=== PATIENT | male | born 2000 | race Hispanic/Latino ===

== ENCOUNTER 2022-12-12 20:17 | Emergency (ER) | payer SELFPAY ==
--- OUTSIDE RECORDS SUMMARY | 2022-12-12 20:22 | XMS REPORT | Continuity of Care Document ---
:2000 Author Organization [facility] t Address [address] [place] [address]. [address] [place] [address] Care Team Providers Name Role Phone ROLANDO MOSCOSO Primary Care Physician Unavailable JANINE RODRIGUEZ Attending Clinician Unavailable ROLANDO MOSCOSO Attending Clinician Unavailable Campbell Castro Attending Clinician Cherelle Morrow Attending Clinician Unavailable Janine Rodriguez MD Attending Clinician Doctor Unassigned, [place] Attending Clinician Unavailable MICHEL LAUGHLIN Attending Clinician Unavailable Amaris Gleason OT Attending Clinician Unavailable Kate Perea OT Attending Clinician Unavailable Michel Laughlin MD Attending Clinician Berto Costa MD Attending Clinician Lab, Jeremiah [facility] Attending Clinician Unavailable CAMPBELL CASTRO Attending Clinician Unavailable Corbin Mauro APN Attending Clinician Angeline Wilson LVN Attending Clinician Unavailable Only, Lcc Test Attending Clinician Unavailable Only, Pcp Test Attending Clinician Unavailable Nick Pereyra MD Attending Clinician Rodney Larsen MD Attending Clinician Angel Torres MD Attending Clinician JANINE RODRIGUEZ Admitting Clinician Unavailable Physician, No Primary or Family Admitting Clinician Janine Cunningham MD Admitting Clinician Payers Payer Name Policy Type Policy Number Effective Date Expiration Date Delroy sousa [facility] [id number] 2020 00:00:00 Problems Condition Condition Condition Status Onset Resolution Last Treating Co mments Source Name Details Category Date Date Treatment Clinician Date Morbid Morbid Disease Active Univers obesity obesity 4-23 [place] of [place] mass index 00 Me dical of of Branch 40.0-49.9 40.0-49.9 Attention Attention Disease Active Uni vers deficit deficit 1-06 [place] 00 Medical disorder disorder Branch (ADHD), (ADHD), predominan predominan tly tly inattentiv inattentiv e type e type Obesity Obesity Disease Active Univers 106 ity of 00:00: [place] 00 Medical Branch Essential Essential Disease Active Uni vers hypertensi hypertensi 06 it y of on on 00:00: [address] Allergies, Adverse Reactions, Alerts Allergy Allergy Status Severity Reaction(s) Onset Inactive Treating Comm ents Source Name Type Date Date Clinician No Known DA Active [facility] NO KNOWN Drug Active Univers ALLERGIE Class ity of S [facility] Social History Social Habit Start Date Stop Date Quantity Comments Source Exposure to Not sure [place] of SARS-CoV-2 [place] [facility] (event) [place] Alcohol intake 2021-01-15 2021-01-15 Current [facility] 00:00:00 00:00:00 non-drinker of [facility] alcohol (finding) [place] Tobacco use and 2013-11-14 2013-11-14 Smokeless tobacco Un iversity of exposure 00:00:00 00:00:00 non-user [facility] Sex Assigned At 2000 2000 Universit y of 00:00:00 00:00:00 [facility] Smoking Status Start Date Stop Date Source Never smoked tobacco [facility] Medications Ordered Filled Start Stop Current Ordering Indication Dosage Frequency Signature Comments Components Source Medication Medication Date Date Medication? Clinician (SIG) Name Name ibuprofen Yes [id number] 800mg Take 1 Univers 800 mg 7-07 tablet by ity of tablet 00:00: mouth [place] 00 every 6 Medical (six) Branch hours as needed for Pain (scale 1-3) for up to 30 doses. ibuprofen Yes [id number] 800mg Take 1 Univers 800 mg 7-07 tablet by ity of tablet 00:00: mouth [place] 00 every 6 Medical (six) Branch hours as needed for Pain (scale 1-3) for up to 30 doses. ibuprofen Yes [id number] 800mg Take 1 Univers 800 mg 7-07 tablet by ity of tablet 00:00: mouth [place] 00 every 6 Medical (six) Branch hours as needed for Pain (scale 1-3) for up to 30 doses. ibuprofen Yes [id number] 800mg Take 1 Univers 800 mg 7-07 tablet by ity of tablet 00:00: mouth [place] 00 every 6 Medical (six) Branch hours as needed for Pain (scale 1-3) for up to 30 doses. ibuprofen Yes [id number] 800mg Take 1 Univers 800 mg 7-07 tablet by ity of tablet 00:00: mouth [place] 00 every 6 Medical (six) Branch hours as needed for Pain (scale 1-3) for up to 30 doses. ibuprofen Yes [id number] 800mg Take 1 Univers 800 mg 7-07 tablet by ity of tablet 00:00: mouth [place] 00 every 6 Medical (six) Branch hours as needed for Pain (scale 1-3) for up to 30 doses. Vital Signs Vital Name Observation Time Observation Value Comments Source Body temperature 2021-07-07 20:13:00 36.06 Annika Univ [facility] Body height 2021-07-07 20:13:00 190.5 cm [facility] Body weight 2021-07-07 20:13:00 171.46 kg [facility] BMI 2021-07-07 20:13:00 47.25 kg/m2 [facility] Procedures This patient has no known procedures. Encounters Start End Encounter Admission Attending Care Care Encounter Source Date/Time Date/Time Type Type Clinicians Facility Department ID 2021-05-05 Emergency [facility] [id number] Univers 06:25:20 ity of [facility] 2021-05-05 Emergency [facility] [id number] Univers 01:08:17 ity of [facility] 2021-05-04 Emergency [facility] [id number] Univers 06:13:50 ity of [facility] 2021-05-04 Outpatient MICHAEL [facility] SOR [id number] Univers 04:21:39 JANINE ity [facility] 2021-05-03 Emergency [facility] [id number] Univers 20:12:00 ity [facility] 2020-09-21 Inpatient [facility] [id number] [facility] 11:31:00 [id number] [facility] 2022-04-08 2022-04-08 Outpatient Nicola MOSCOSO [facility] [id number] Univers 10:20:00 10:20:00 ROLANDO ity [facility] 2022-04-06 2022-04-06 Telephone Gloria [facility] 1.2.840.114 [id number] Univers 00:00:00 00:00:00 [facility] 350.1.13.10 it y of [place] 4.2.7.2.686 [facility] [phone] [facility] PRIMARY & 365 Branch SPECIALTY CARE 2022-01-22 2022-01-22 Telephone Gloria [facility] 1.2.840.114 [id number] Univers 00:00:00 00:00:00 [facility] 350.1.13.10 it y of [place] 4.2.7.2.686 [facility] [id number] [facility] PRIMARY & 365 Branch SPECIALTY CARE 2021-10-11 2021-10-11 Emergency ROSA Morrow [facility] [id number] [facility] 11:16:00 12:58:00 Cherelle [id number] [facility] 2021-10-11 2021-10-11 Emergency [facility] [id number] [facility] 11:16:00 12:58:00 Cherelle 97 [facility] 2021-08-13 2021-08-13 [facility] 1.2.840.114 [id number] Univers 00:00:00 00:00:00 Janine [facility] 350.1.13.10 it y of [place]2.7.2.686 [place] [id number] [facility] 198 [place] 2021-08-01 2021-08-01 Telephone [facility] 1.2.840.114 [id number] Univers 00:00:00 00:00:00 Janine PRIMARY 350.1.13.10 it [place] of [place] 4[place] [id number] [facility] 198 [place] 2021-07-31 2021-07-31 Telephone [facility] 1.2.840.114 [id number] Univers 00:00:00 00:00:00 Janine PRIMARY 350.1.13.10 it [place] of [place] 4.2.[place].2.[place] [id number] [facility] 198 [place] 2021-07-07 2021-07-07 Office [facility] 1.2.161.732 [id number] Univers 13:40:00 13:50:00 Visit Janine [facility] 350.1.13.10 it y of C[place] 4.2.7.2.[place] [id number] [address] 2021-07-07 2021-07-07 Outpatient R MICHAEL [facility] [id number] Univers 13:40:00 13:40:00 JANINE cerda [facility] 2021-07-07 2021-07-07 Orders Doctor JANINE 1.2.840.114 [id number] Univers 00:00:00 00:00:00 Only Unassigned, JACOB 350.1.13.10 ity of [place] [facility] 4.2.7.2.686 Jeremiah as [id number] [facility] 009 Branch 2021-05-21 2021-05-21 Outpatient R NAVNEET [facility] [id number] Univers 09:00:00 09:00:00 MICHEL cerda [facility] 2021-05-21 2021-05-21 [facility] 1.2.840.114 [id number] Univers 00:00:00 00:00:00 Management Amaris PRIMARY 350.1.13.10 it[place] of C[place] 4.2.7.2.[place] [id number] De dical 178 Branch 2021-05-13 2021-05-13 Case [facility] 1.2.840.114 [id number] Univers 00:00:00 00:00:00 Management Amaris PRIMARY 350.1.13.10 it[place] of C[place] 4.2.7.2.[place] [id number] De dical 178 Branch 2021-05-06 2021-05-06 Case Eliazar [facility] 1.2.840.114 [id number] Univers 00:00:00 00:00:00 Management Kate E PRIMARY 350.1.13.10 it[place] of [place] 4.2.7.2.[place] [id number] De dical 178 Branch 2021-04-30 2021-04-30 [facility] [id number] Univers 08:15:00 09:05:27 MICHEL ity of [facility] 2021-04-30 2021-04-30 Ancillary Kate Perea [facility] 1.2.84 0.114 [id number] Univers 08:10:26 09:05:27 Visit Michel Laughlin PRIMARY 350.1.13.10 it[place] of C[place] 4.2.[place].2.[place] [id number] De dical 178 [place] 2021-04-30 2021-04-30 Outpatient R [facility] [id number] Univers 08:15:00 08:15:00 ity of [facility] 2021-04-24 2021-04-24 Telephone [facility] 1.2.468.005 [id number] Univers 00:00:00 00:00:00 Amaris PRIMARY 350.1.13.10 it [place] of [place] 4.2.7.2.[place] [id number] De dical 178 Branch 2021-04-17 2021-04-17 Ancillary Amaris Gleason [facility] 1.2.840.114 [id number] Univers 13:36:55 14:18:27 Visit Michel Laughlin PRIMARY 350.1.13.10 it[place] of C[place] 4.2.7.2.[place] [id number] De dical 178 Branch 2021-04-10 2021-04-10 Ancillary Amaris Gleason [facility] 1.2.840.114 [id number] Univers 13:30:25 14:19:43 Visit Michel Laughlin PRIMARY 350.1.13.10 ity of CARE 4.2.7.2.[place] [id number] De dical 178 Branch 2021-04-02 2021-04-02 Ancillary Amaris Gleason [facility] 1.2.840.114 [id number] Univers 14:39:57 15:54:28 Visit Michel Laughlin PRIMARY 350.1.13.10 it[place] of C[place] 4.2.[place].2.[place] [id number] De dical 178 [place] 2021-04-02 2021-04-02 [facility] [id number] Univers 14:45:00 14:45:00 MICHEL [facility] [place] [facility] 2021-03-31 2021-03-31 [facility] 1.2.840.114 [id number] Univers 13:41:34 23:59:00 Encounter Janine PRIMARY 350.1.13.10 it[place] of C[place] 4.2.7.2.[place] [id number] De dical 807 [place] 2021-03-31 2021-03-31 [facility] 1.2.844.030 [id number] Univers 13:20:51 15:03:27 Visit Janine PRIMARY 350.1.13.10 it [place] of C[place] 4.2.7.2.[place] [id number] De dical 198 Branch 2021-03-31 2021-03-31 Outpatient [facility] [id number] Univers 14:00:00 14:00:00 JANINE antione [facility] 2021-03-31 2021-03-31 Outpatient R [facility] [id number] Univers 13:30:00 13:30:00 JANINE cerda [facility] 2021-03-31 2021-03-31 Outpatient R [facility] [id number] Univers 13:30:00 13:30:00 JANINE cerda [facility] 2021-02-24 2021-02-24 [facility] 1.2.840.114 [id number] Univers 13:31:30 23:59:00 Encounter Janine PRIMARY 350.1.13.10 it[place] of C[place] 4.2.7.2.[place] [id number] De dical 807 [place] 2021-02-24 2021-02-24 Office [facility] 1.2.673.683 [id number] Univers 13:17:21 14:07:52 Visit Janine [place] 350.1.13.10 it y of C[place] 4.2.7.2.[place] [id number] De dical 198 [place] 2021-02-24 2021-02-24 Outpatient R [facility], [facility] [id number] Univers 13:45:00 13:45:00 JANINE cerda [facility] 2021-02-24 2021-02-24 Outpatient R [facility] [id number] Univers 13:20:00 13:20:00 JANINE cerda [facility] 2021-01-24 2021-01-24 Orders Doctor JANINE 1.2.840.114 [id number] Univers 00:00:00 00:00:00 Only Unassigned, JACOB 350.1.13.10 ity of [place] [facility] 4.2.7.2.686 Jeremiah as [id number] [address] 2021-01-17 2021-01-17 Telephone [facility] 1.2.840.114 [id number] Univers 00:00:00 00:00:00 Janine PRIMARY 350.1.13.10 it y of [place] 4.2.[place].2.[place] [id number] De dical 198 [place] 2021-01-15 2021-01-15 [facility] 1.2.840.114 [id number] Univers 14:40:00 23:59:00 Encounter Janine SPECIALTY 350.1.13.10 ity of C[place] 4.2.7.2.686 [place] C[place] AT [id number] De keerthi MAURO 809 [facility] 2021-01-15 2021-01-15 Office [facility] 1.2.530.502 [id number] Univers 14:30:04 16:08:36 Visit Janine SPECIALTY 350.1.13.10 it[place] of [place] 4.2.7.2.[place] AT [id number] De keerthi MAURO 198 [facility] 2021-01-15 2021-01-15 [facility] [id number] Univers 14:40:00 14:40:00 JANINE [facility] [place] [facility] 2021-01-07 2021-01-08 Emergency Julissa, TRAU[place] 1.2.158.405 [id number] Univers 20:07:00 03:12:00 [facility] 350.1.13.10 ity of 4.2.7.2.686 [facility] [id number] [facility] 014 Branch 2020-12-30 2020-12-30 Ancillary Amaris Gleason [facility] 1.2.840.114 [id number] Univers 13:43:01 17:00:51 Visit Michel Laughlin 350.1.13.10 ity of CARE 4.2.7.2.686 [facility] [id number] De keerthi 178 Branch 2020-12-30 2020-12-30 Outpatient R NAVNEET [facility] [id number] Univers 13:45:00 13:45:00 MICHEL cerda [facility] 2020-12-30 2020-12-30 Telephone Gloria [facility] 1.2.840.114 [id number] Univers 00:00:00 00:00:00 [facility] 350.1.13.10 [place] of [place] 4.2.7.2.686 [place] [facility] [id number] [facility] Primary & 365 Branch Specialty Care 2020-12-27 2020-12-27 Game Moderator Lab, [facility] 1.2.840.11 [id number] Univers 14:04:30 14:19:30 Visit Gloria [facility] 350.1.13.10 ity of [place] 4.2.7.2.686 [facility] [id number] [facility] Primary & 357 Branch Specialty Care 2020-12-27 2020-12-27 Office [facility] 1.2.840.114 [id number] Univers 13:24:42 13:54:42 Visit [facility] 350.1.13.10 it y of [place] 4.2.7.2.686 [facility] [id number] [facility] Primary & 365 Branch Specialty Care 2020-12-27 2020-12-27 Outpatient R GLORIA [facility] [id number] Univers 13:30:00 13:30:00 [facility] ity [facility] 2020-12-27 2020-12-27 Telephone [facility] 1.2.840.114 [id number] Univers 00:00:00 00:00:00 Jannie SPECIALTY 350.1.13.10 it[place] C[place] 4.2.[place].2.[place] AT [id number] De keerthi MAURO [address] [place] [address] 2020-12-20 2020-12-20 Telephone [facility] 1.2.840.114 [id number] Univers 00:00:00 00:00:00 Janine SPECIALTY 350.1.13.10 it[place] of C[place] 4.2.7.2.[place] AT [id number] De keerthi MAURO [address] [place] [address] 2020-12-19 2020-12-19 Telephone [facility] 1.2.840.114 [id number] Univers 00:00:00 00:00:00 Janine SPECIALTY 350.1.13.10 ity of C[place] 4.2.7.2.686 [place] AT [id number] De keerthi MAURO [address] [place] [address] 2020-12-18 2020-12-18 Office [facility] 1.2.217.671 [id number] Univers 15:55:56 17:12:09 Visit Janine SPECIALTY 350.1.13.10 ity of C[place] 4.2.7.2.[place] AT [id number] De keerthi MAURO [address] [place] [address] 2020-12-18 2020-12-18 Outpatient R [facility], [facility] [id number] Univers 16:10:00 16:10:00 JANINE cerda [facility] 2020-12-16 2020-12-16 Emergency Mauro, [place] 1.2.537.456 [id number] Univers 15:50:00 19:43:00 Corbin [facility] 350.1.13.10 ity of [place]2.7.2.686 [place] [id number] [address] 2020-12-11 2020-12-11 Telephone [facility] 1.2.840.114 [id number] Univers 00:00:00 00:00:00 Janine SPECIALTY 350.1.13.10 ity of C[place] 4.2.7.2.686 [place] C[place] AT [id number] De keerthi CRESTONAntione [address] [place] [address] 2020-12-04 2020-12-04 Outpatient R [facility], [facility] [id number] Univers 16:20:00 16:20:00 JANINE [facility] [place] [facility] 2020-11-28 2020-11-28 [facility] 1.2.840.114 [id number] Univers 00:00:00 00:00:00 Janine PRIMARY 350.1.13.10 it y of C[place] 4.2.7.2.686 [place] [facility] [id number] [address] 2020-11-27 2020-11-27 Patient [facility] 1.2.537.397 [id number] Univers 00:00:00 00:00:00 Secure Msg Angeline Borges SPECIALTY 350.1.13.10 it[place] of [place] 4.2.7.2.[place] C[place] AT [id number] De keerthi MAURO [address] [place] [address] 2020-11-05 2020-11-05 Telephone [facility] 1.2.840.114 [id number] Univers 00:00:00 00:00:00 Janine PRIMARY 350.1.13.10 it y of C[place] 4.2.7.2.686 [place] [id number] De dical 198 [place] 2020-11-04 2020-11-04 [facility] 1.2.840.114 [id number] [facility] 13:00:14 23:59:00 Encounter Janine PRIMARY 350.1.13.10 it[place] of [place] 4.2.[place].2.[place] [id number] [facility] 807 [place] 2020-11-04 2020-11-04 [facility] 1.2.573.027 [id number] [facility] 12:42:49 14:23:19 Visit Janine PRIMARY 350.1.13.10 it [place] of C[place] 4.2.7.2.[place] [id number] [facility] 198 [place] 2020-11-04 2020-11-04 Outpatient R [facility] [id number] Univers 13:15:00 13:15:00 JANINE [facility] [place] [facility] 2020-11-04 2020-11-04 Outpatient R [facility] [id number] Univers 13:00:00 13:00:00 JANINE [facility] [place] [facility] 2020-11-04 2020-11-04 [facility] 1.2.840.114 [id number] Univers 00:00:00 00:00:00 Janine PRIMARY 350.1.13.10 it [place] of C[place] 4.2.7.2.[place] [id number] [facility] 198 [place] 2020-10-29 2020-10-29 [facility] 1.2.840.114 [id number] Univers 00:00:00 00:00:00 Janine PRIMARY 350.1.13.10 it y of C[place] 4.2.7.2.[place] [id number] [facility] 198 [place] 2020-10-25 2020-10-25 [facility] 1.2.840.114 [id number] Univers 07:22:00 16:08:00 Encounter [facility] 350.1.13.10 ity of [place] 4.2.7.2.686 [place] [facility] [id number] [facility] 049 [facility] 2020-10-25 2020-10-25 Surgery Michael, [facility] 1.2.503.360 [id number] Univers 08:56:00 11:55:00 Janine SPECIALTY 350.1.13.10 it[place] of C[place] 4.2.7.2.[place] CENTER AT [id number] De lucitavictoria MAURO 020 [facility] 2020-10-25 2020-10-25 Outpatient R FAILCECILIO, [facility] SOR [id number] Univers 08:58:00 08:58:00 JANINE cerda [facility] 2020-10-25 2020-10-25 Orders Doctor JANINE 1.2.840.114 [id number] Univers 00:00:00 00:00:00 Only Unassigned, JACOB 350.1.13.10 ity of [place] [facility] 4.2.7.2.686 Jeremiah as [id number] [facility] 009 [place] 2020-10-24 2020-10-24 Laboratory Only, [facility] Test [facility] 1.2.840. 114 [id number] Univers 15:04:09 15:19:09 Only Janine Rodriguez 350.1.13.10 ity of CARE 4.2.7.2.[place] CENTER AT [id number] De lucitavictoria MAURO 353 [facility] 2020-10-24 2020-10-24 Outpatient R MICHAEL, [facility] [id number] Univers 14:45:00 14:45:00 JANINE cerda [facility] 2020-10-21 2020-10-21 Letter Michael, [facility] 1.2.460.156 [id number] Univers 00:00:00 00:00:00 (Out) Janine [place] 350.1.13.10 it y of C[place] 4.2.7.2.686 [place] LEWISBERRY [id number] [facility] 198 [place] 2020-10-21 2020-10-21 Patient Michael [facility] 1.2.506.098 [id number] Univers 00:00:00 00:00:00 Secure Msg Janine PRIMARY 350.1.13.10 ity of C[place] 4.2.7.2.[place] [id number] De keerthi 198 [place] 2020-10-11 2020-10-11 Telephone Failjakice, [facility] 1.2.840.114 [id number] Univers 00:00:00 00:00:00 Janine SPECIALTY 350.1.13.10 it[place] of [place] 4.2.7.2.[place] C[place] AT [id number] De keerthi Donnelly [facility] 2020-10-07 2020-10-07 Outpatient R FAILLACE, [facility] [id number] Univers 10:50:00 10:50:00 JANINE antione [facility] 2020-10-07 2020-10-07 Outpatient R FAILLACE, [facility] [id number] Univers 10:50:00 10:50:00 JANINE [facility] [place] [facility] 2020-10-04 2020-10-04 Telephone [facility], [facility] 1.2.840.114 [id number] Univers 00:00:00 00:00:00 Janine SPECIALTY 350.1.13.10 it[place] of C[place] 4.2.7.2.[place] C[place] AT [phone] De keerthi Donnelly [facility] 2020-09-23 2020-09-23 Laboratory Only, Pcp Test [facility] 1.2.840. 114 [id number] Univers 13:50:07 14:05:07 Only Michael, Janine PRIMARY 350.1.13.10 ity of C[place] 4.2.7.2.[place] [id number] De keerthi [address] [place] [address] 2020-09-23 2020-09-23 Outpatient R FAILLACE, [facility] [id number] Univers 14:00:00 14:00:00 JANINE [facility] [place] [facility] 2020-09-17 2020-09-17 Emergency TRAU[place] 1.2.651.055 [id number] Univers 07:11:00 07:30:00 CENTER 350.1.13.10 [place].2.[place] [id number] [address] 2020-09-17 2020-09-17 Emergency TRAU[place] 1.2.930.340 [id number] 07:11:00 07:30:00 CENTER 350.1.13.10 4.2.7.2.686 [id number] 2020-08-09 2020-08-09 [facility] 1.2.840.114 [id number] Univers 00:00:00 00:00:00 Janine PRIMARY 350.1.13.10 it [place] of C[place] 4.2.7.2.[place] [id number] De dical [address] [place] 2020-08-09 2020-08-09 [facility] 1.2.840.114 [id number] 00:00:00 00:00:00 Janine PRIMARY 350.1.13.10 CARE 4.2.7.2.686 PAVILLION [id number] 198 2020-08-05 2020-08-05 Outpatient [facility] [id number] Univers 13:00:11 23:59:00 [facility] 2020-08-05 2020-08-05 [facility] 1.2.840.114 [id number] Univers 13:00:00 23:59:00 Encounter Janine PRIMARY 350.1.13.10 it[place] of C[place].2.7.2.[place] [id number] De dical 807 [place] 2020-08-05 2020-08-05 [facility] 1.2.840.114 [id number] 13:00:00 23:59:00 Encounter Janine PRIMARY 350.1.13.10 CARE 4.2.7.2.686 PAVILLION [id number] 807 2020-08-05 2020-08-05 Outpatient Nicola LAUGHLIN [facility] [id number] Univers 15:00:00 15:00:00 MICHEL [facility] 2020-08-05 2020-08-05 Outpatient [facility] [id number] Univers 13:20:00 13:20:00 JANINE [facility] 2020-08-05 2020-08-05 Office [facility] 1.2.997.597 [id number] Univers 12:56:00 13:06:00 Visit Janine PRIMARY 350.1.13.10 it y of C[place] 4.2.7.2.[place] [id number] De dical [address] [place] 2020-08-05 2020-08-05 Office [facility] 1.2.801.187 [id number] 12:56:00 13:06:00 Visit Janine PRIMARY 350.1.13.10 CARE 4.2.7.2.686 PAVILLION [phone] [facility] 2020-08-05 2020-08-05 Outpatient R [facility] [id number] Univers 00:00:00 00:00:00 JANINE [facility] [place] [facility] 2020-08-04 2020-08-04 Abstract Hafsa [facility] 1.2.840.114 [id number] Univers 00:00:00 00:00:00 Nick PRIMARY 350.1.13.10 [place] [id number] De dical [address] [place] 2020-08-01 2020-08-01 Emergency Vasut, TRAUMA 1.2.344.214 [id number] Univers 07:52:00 13:28:00 [facility] 350.1.13.10 [place] [id number] [facility] [address] [place] 2020-07-24 2020-07-24 Ancillary Kate Perea [facility] 1.2.84 0.114 [id number] Univers 14:39:10 15:24:10 Visit Michel Laughlin A PRIMARY 350.1.13.10 [place] [phone] De dical [address] [place] 2020-07-24 2020-07-24 Outpatient R [facility] [id number] Univers 15:00:00 15:00:00 ity [facility] 2020-07-08 2020-07-08 Ancillary Kate Perea [facility] 1.2.84 0.114 [id number] Univers 12:53:01 13:38:01 Visit Michel Laughlin PRIMARY 350.1.13.10 [place] [id number] De dical [address] [place] 2020-07-08 2020-07-08 [facility] [id number] Univers 13:00:00 13:00:00 MICHEL ity [facility] 2020-06-26 2020-06-26 Case Eliazar [facility] 1.2.840.114 [id number] Univers 00:00:00 00:00:00 Management Kate E PRIMARY 350.1.13.10 [place] [id number] [facility] [address] [place] 2020-06-19 2020-06-19 Ancillary Kate Perea [facility] 1.2.84 0.114 [id number] Univers 13:54:01 14:39:01 Visit Michel Laughlin PRIMARY 350.1.13.10 [place] [id number] De dicwi [address] [place] 2020-06-12 2020-06-12 Outpatient R [facility] [id number] Univers 13:45:00 13:45:00 ity [facility] 2020-06-11 2020-06-11 Ancillary Amaris Gleason [facility] 1.2.840.114 [id number] Univers 14:27:57 15:12:57 Visit Michel Laughlin PRIMARY 350.1.13.10 [place] [id number] De dical [address] [place] 2020-06-06 2020-06-06 Ancillary Victorino Amaris [facility] 1.2.840.114 [id number] Univers 15:29:18 16:14:18 Visit Michel Laughlin PRIMARY 350.1.13.10 [place] [phone] De dical [address] [place] 2020-05-29 2020-05-29 Ancillary Amaris Gleason [facility] 1.2.840.114 [id number] Univers 13:59:22 14:44:22 Visit Michel Laughlin PRIMARY 350.1.13.10 [place] [phone] De dical [address] [place] 2020-05-29 2020-05-29 Outpatient R [facility] [id number] Univers 14:00:00 14:00:00 ity [facility] 2020-05-13 2020-05-13 [facility] 1.2.840.114 [id number] Univers 09:02:44 23:59:00 Encounter Janine PRIMARY 350.1.13.10 [place] [id number] De dical [address] [place] 2020-05-13 2020-05-13 Ancillary Kate Perea Alfred [facility] 1.2.84 0.114 [id number] Univers 11:07:13 11:52:13 Visit Michel Laughlin PRIMARY 350.1.13.10 [place] [id number] De dicwi [address] [place] 2020-05-13 2020-05-13 [facility] [id number] Univers 11:30:00 11:30:00 MICHEL [facility] [place] [facility] 2020-05-13 2020-05-13 Outpatient R [facility] [id number] Univers 10:00:00 10:00:00 JANINE [facility] 2020-05-13 2020-05-13 Office [facility] 1.2.079.406 [id number] Univers 08:59:24 09:19:24 Visit Janine PRIMARY 350.1.13.10 [place] [id number] [facility] [address] [place] 2020-05-13 2020-05-13 Outpatient R [facility] [id number] Univers 00:00:00 00:00:00 JANINE [facility] 2020-05-12 2020-05-12 [facility] 1.2.372.811 [id number] Univers 00:00:00 00:00:00 Christopher PRIMARY 350.1.13.10 ity of CARE 4.2.7.2.686 [place] [facility] [id number] De dical [address] [place] 2020-05-07 2020-05-07 Orders Doctor JANINE 1.2.840.114 [id number] Univers 00:00:00 00:00:00 Only Unassigned, JACOB 350.1.13.10 ity of [place] [facility] 4.2.7.2.686 Jeremiah as [phone] [facility] bozena [address] Results Test Description Test Time Test Comments Results Result [facility] e Comments - XR FOOT 3 + V LT 2021-10-11 12:05:00 [facility] 2000 Sex: M FAX: Cherelle Morrow MD [phone] [place]: St: REG Name: ANABELLVALENCIA [facility] : 2000 Age/S: 21/M [address] [facility] Unit #: [id number] Loc: [place], [place]: [place] [address] Acct: [id number] Dis Date: Status: REG ER PHONE #: [phone] Exam Date: 10/11/2021 1202 FAX #: [phone] Reason: pain, catfish stinger medial forefoot EXAMS: CPT CODE: [id number] XR FOOT 3 + [place] [address] B2 Exam: - XR FOOT 3 + V LT DATE:10/11/2021 11:32 AM INDICATION:pain, catfish stinger medial forefoot COMPARISON:None DISCUSSION: No acute fracture or dislocation. No significant soft tissue abnormality. No radiopaque foreign body. IMPRESSION: No acute osseous abnormality. at 1205 Reported and signed by: ERICH MAXWELL MD CC: Cherelle Morrow MD Technologist: URVASHI SPENCER; Linnette Drummond [facility] Date/Time/By: 10/11/2021 (0586) : By: Kristina PAGE 1 Signed Report FAX: Cherelle Morrow MD [phone] [place]: St: REG Name: VALENCIA HUNG [facility] : 2000 Age/S: 21/M [address] [facility] Unit #: [id number] Loc: [place], [place]: [place] [address] Acct: [id number] Dis Date: Status: REG ER PHONE #: [phone] Exam Date: 10/11/2021 1202 FAX #: [phone] Reason: pain, catfish stinger medial forefoot EXAMS: CPT CODE: [id number] XR FOOT 3 + V LT 73081 (Continued) Orig Print D/T: S: 10/11/2021 (2153) PAGE 2 Signed Report - ABDOMEN LTD 2020-09-21 15:45:00 [facility] : 2000 Sex: M FAX: Jamar Beck DO [phone] [place]: St: REG FAX: Waylon Melo [phone] Name: VALENCIA HUNG [facility] : 2000 Age/S: 20/M [address] [facility] Unit #: [id number] Loc: [address] Phys: Waylon Holley SQL SSRS SSIS DEVELOPER [address] Acct: [id number] Dis Date: Status: REG ER PHONE #: [phone] Exam Date: 09/21/2020 1602 FAX #: [phone] Reason: RUQ pain EXAMS: CPT CODE: [id number] ABDOMEN [facility] 33665 C3 TIME OF STUDY: 09/21/2020 1:49 PM REASON FOR EXAM: RUQ pain COMPARISON: CT on the same date TECHNIQUE: Liver/gallbladder ultrasound. B-mode grayscale, color Doppler, and spectral Doppler images are obtained. Exam is significantly limited due to patient body habitus. FINDINGS: The liver is enlarged, measuring 19.6 cm in length. The liver echogenicity is diffusely increased. This limits evaluation for focal lesions. No intrahepatic biliary dilatation is present. The common bile duct is not dilated and measures 5 mm. Doppler images demonstrate a patent portal vein with hepatopetal flow. There is some layering echogenic sludge present. There is no evidence of cholelithiasis or gallbladder wall thickening or pericholecystic fluid. The pancreas is not well visualized due to overlying bowel gas. The right kidney measures approximately 10.9 cm in length and has a normal appearance. IMPRESSION: 1. Layering sludge within the gallbladder. No cholelithiasis or acute cholecystitis. 2. Hepatomegaly with hepatic steatosis. at 1545 Reported and signed by: Enrike Honeycutt M.D. CC: Jamar Beck DO; Waylon Holley NP Technologist: ARMANDO YEE Trnprrd Date/Time/By: 09/21/2020 (6036) : By: [email or web address] PAGE 1 Signed Report FAX: Jamar Beck DO [phone] [place]: St: REG FAX: Waylon Melo [phone] Name: VALENCIA HUNG [facility] : 2000 Age/S: 20/M [address] [facility] Unit #: [id number] Loc: [address] Phys: Waylon Holley SQL SSRS SSIS DEVELOPER [address] Acct: [id number] Dis Date: Status: REG ER PHONE #: [phone] Exam Date: 09/21/2020 1602 FAX #: [phone] Reason: RUQ pain EXAMS: CPT CODE: [id number] US ABDOMEN LTD 41161 (Continued) Orig Print D/T: S: 09/21/2020 (5829) PAGE 2 Signed Report COMPREHENSIVE METABOLIC PANEL 2020-09-21 13:20:00 Test Item Value Reference Range Interpretation Comme nts SODIUM (test code = NA) 141 mmol/l 134.0-147.0 N POTASSIUM (test code = K) 4.1 mmol/L 3.6-5.2 N CHLORIDE (test code = CL) 105 mmol/l 98.0-107.0 N CARBON DIOXIDE (test code = CO2) 26.8 mmol/l 21.0-33.0 N ANION GAP (test code = GAP) 13.3 0-20 N GLUCOSE (test code = GLU) 101 mg/dl 70.0-110.0 N BLOOD UREA NITROGEN (test code = BUN) 11 mg/dl 7.0-18.0 N CREATININE (test code = CREAT) 0.81 mg/dL 0.60-1.30 N GFR NON BLACK (test code = GFRNONBLACK) 129 mL/min 110-120 H GFR BLACK (test code = GFRBLACK) 156 mL/min 133-145 H TOTAL PROTEIN (test code = PROT) 8.2 GM/DL 6.0-8.1 H ALBUMIN (test code = ALB) 3.3 gm/dL 3.2-4.7 N CALCIUM (test code = CA) 8.8 mg/dl 8.0-10.5 N BILIRUBIN TOTAL (test code = BILT) 0.4 mg/dl 0.0-1.0 N SGOT/AST (test code = AST) 18 Units/L 15-37 N SGPT/ALT (test code = ALT) 53 Units/L 12.0-78.0 N ALKALINE PHOSPHATASE TOTAL (test code = ALKP) 97 Units/L 50.0-136 .0 N [id number] 13:20:00 Test Item Value Reference Range Interpretation Comments LIPASE (test code = LIP) 79 Units/L 65.0-230.0 N [id number] 13:20:00 Test Item Value Reference Range Interpretation Comments TROPONIN-I (test <0.02 NG/ML 0.00-0.06 N REFERENCE R ARNOLD code = TROPI) TROPONIN I HEA LTHY INDIVIDUALS: <0 .06 ng/mL R/O ISCHE SUNDEEP: 0.07 - 0.60 ng/ mL CUT-OFF RANGE F OR AMI: 0.60 - 1.5 ng/m L - CT ABD PELVIS W/O [id number] 13:13:00 [facility] : 2000 Sex: M FAX: Jamar Beck DO [phone] [place]: St: REG FAX: Waylon Melo [phone] Name: VALENCIA HUNG [facility] : 2000 Age/S: 20/M [address] [facility] Unit: [id number] Loc: [address] Phys: Waylon Holley SQL SSRS SSIS DEVELOPER [address] Acct: [id number] Dis Date: Status: REG ER PHONE #: [phone] Exam Date: 09/21/2020 [facility] FAX #: [phone] Reason: abd pain EXAMS: CPT CODE: [id number] CT ABD PELVIS W/O CONT 75889 C3 TIME OF STUDY: 09/21/2020 12:41 PM REASON FOR EXAM: abd pain COMPARISON: None. TECHNIQUE: Helical non- contrast enhanced images were obtained through the abdomen and pelvis. Sagittal and coronal reformats were obtained and reviewed. One or more of the following radiation dose reduction techniques was used: automated exposure control, adjustment of mA and/or KV according to patient size, and/or utilization of iterative reconstruction technique. FINDINGS: CT Abdomen: The included lung bases are clear. There is diffuse fatty infiltration of the liver. No radiopaque calculi are seen in the gallbladder. The pancreas, kidneys, adrenal glands and spleen all have normal appearance. There is no mesenteric or retroperitoneal adenopathy. The bowel loops are nondilated. A normal appendix is visualized. There is no free fluid or free air. The osseous structures are age- appropriate. CT Pelvis: The ureters and bladder are grossly normal. There is no free air, free fluid, loculated collection or adenopathy in the pelvis. The osseous and soft tissue structures are age appropriate. IMPRESSION: 1. No acute abnormalities in the abdomen or pelvis. Normal appendix. No obstructive ureteral calculi and no hydronephrosis seen. 2. Hepatic steatosis. PAGE 1 Signed Report (CONTINUED) FAX: Jamar Beck DO [phone] [place]: St: [facility] FAX: Waylon Melo [phone] Name: VALENCIA HUNG [facility] : 2000 Age/S: 20/M [address] [facility] Unit: [id number] Loc: [address] [place], [place] Phys: Waylon Holley SQL SSRS SSIS DEVELOPER [address] Acct: [id number] Dis Date: Status: REG ER PHONE #: [phone] Exam Date: 09/21/2020 1304 FAX #: [phone] Reason: abd pain EXAMS: CPT CODE: [id number] CT ABD PELVIS W/O CONT 12830 (Continued) at 1313 Reported and signed by: Enrike Honeycutt M.D. CC: Jamar Beck DO; Waylon Holley NP Technologist: NINA CANSECO Trngracielard Dt/Tm: 09/21/2020 (5693) [email or web address] Orig Print D/T: S: 09/21/2020 (1316 PAGE 2 Signed ReportCOMPREHENSIVE METABOLIC [id number] 13:11:00 Test Item Value Reference Range Interpretation Comments SODIUM (test code = NA) 141 mmol/l 134.0-147.0 N POTASSIUM (test code = K) 4.1 mmol/L 3.6-5.2 N CHLORIDE (test code = CL) 105 mmol/l 98.0-107.0 N CARBON DIOXIDE (test code = CO2) 26.8 mmol/l 21.0-33.0 N ANION GAP (test code = GAP) 13.3 0-20 N GLUCOSE (test code = GLU) mg/dl 70.0-110.0 BLOOD UREA NITROGEN (test code = mg/dl 7.0-18.0 BUN) CREATININE (test code = CREAT) mg/dL 0.60-1.30 GFR NON BLACK (test code = mL/min 110-120 GFRNONBLACK) GFR BLACK (test code = GFRBLACK) mL/min 133-145 TOTAL PROTEIN (test code = PROT) gm/dL 6.4-8.2 ALBUMIN (test code = ALB) gm/dl 3.2-4.7 CALCIUM (test code = CA) mg/dl 8.0-10.5 BILIRUBIN TOTAL (test code = mg/dl 0.0-1.0 BILT) SGOT/AST (test code = AST) Units/L 15-37 SGPT/ALT (test code = ALT) Units/L 12.0-78.0 ALKALINE PHOSPHATASE TOTAL (test Units/L 50.0-136.0 code = ALKP) [id number] 13:11:00 Test Item Value Reference Range Interpretation Comments LIPASE (test code = LIP) Units/L 65.0-230.0 [id number] 13:11:00 Test Item Value Reference Range Interpretation Comments TROPONIN-I (test code = TROPI) NG/ML 0.00-0.06 - XR CHEST 1 [id number] 13:08:00 [facility] 2000 Sex: M FAX: Jamar Beck DO [phone] [place]: St: REG FAX: Waylon Melo [phone] Name: VALENCIA HUNG [facility] : 2000 Age/S: 20/M [address] [facility] Unit #: [id number] Loc: [address] [place], [place] Phys: Waylon Holley SQL SSRS SSIS DEVELOPER [address] Acct: [id number] Dis Date: Status: REG ER PHONE #: [phone] Exam Date: 09/21/2020 1301 FAX #: [phone] Reason: cp EXAMS: CPT CODE: [id number] XR CHEST 1 V 31236 EXAM: - XR CHEST 1 V Location code:C3 HISTORY: Chest pain COMPARISON: None available time of interpretation. FINDINGS: Frontal view of the chest is submitted. Heart size within normal limits. Low lung volumes mild bronchovascular crowding. The lungs are clear of focal consolidation. No effusionor evidence of pneumothorax.. No acute osseous pathology. IMPRESSION 1. Low lung volumes mild bronchovascular crowding. Otherwise, no radiographic evidence of acute cardiopulmonary process. at 0355 Reported and signed by: NELY MEYER M.D. CC: Jamar Beck DO; Waylon Holley NP Technologist: KITTY MOORE [facility] Date/Time/By: 09/21/2020 (7291) : By: [email or web address] PAGE 1 Signed Report FAX: BeckJamar torres DO [phone] [place]: St: REG FAX: Waylon Melo [phone] Name: VALENCIA HUNG [facility] : 2000 Age/S:20/M [address] [facility] #: [id number] Loc: [address] [place], [place] Phys: Nicola Holley juanjelena SQL SSRS SSIS DEVELOPER [address] Acct: [id number] Dis Date: Status: REG ER PHONE #: [phone] Exam Date: 09/21/2020 1301 FAX #: [phone] Reason: cp EXAMS: CPT CODE: [id number] XR CHEST 1 V 45654 (Continued) Orig Print D/T: S: 09/21/2020 (9621) PAGE 2 Signed ReportDRUGS OF ABUSE SCREEN [id number] 13:07:00 Test Item Value Reference Interpretation Comments Range URN COCAINE (test NEGATIVE NEGATIVE Cocaine cu t-off code = COCAURN) concentratio n: 300 ng/mL URN CANNABINOIDS POSITIVE NEGATIVE A UNCONFIRMED INITIAL (test code = SCREENING ONLY; SUGGEST CANNABURN) ADDITIONALCONFI RMATORY TESTING.Cannabi noids cut-off concent ration: 50 ng/mL URN AMPHETAMINE NEGATIVE NEGATIVE Amphetamine cut-off (test code = concentration: 1000 ng/mL AMPHETURN) URN BARBITURATE NEGATIVE NEGATIVE Barbiturate cut-off (test code = concentration: 200 ng/mL BARBITURN) URN BENZODIAZEPINE NEGATIVE NEGATIVE Benzodiaz epine cut-off (test code = concentration: 200 ng/mL BENZOURN) URN OPIATES (test NEGATIVE NEGATIVE Opiates cu t-off code = OPIATURN) concentrati on: 2000 ng/mL URN PHENCYCLIDINE NEGATIVE NEGATIVE Phencyclid ine(PCP) cut-off (PCP) (test code = concentra tion: 25 ng/ml PHENCURN) URN METHADONE (test NEGATIVE NEGATIVE Methadon e cut-off code = METHAURN) concentrati on: 300 ng/mL URINALYSIS [id number] 13:05:00 Test Item Value Reference Range Interpretation Comments UA COLOR (test code = COLU) YELLOW UA APPEARANCE (test code = CLEAR APPU) UA GLUCOSE DIPSTICK (test NORMAL mg/dl NORMAL code = DGLUU) UA BILIRUBIN DIPSTICK (test NEGATIVE mg/dL NEGATIVE code = BILU) UA KETONE DIPSTICK (test NEGATIVE mg/dl NEGATIVE code = KETU) UA SPECIFIC GRAVITY (test 1.020 1.000-1.030 code = SGU) UA BLOOD DIPSTICK (test NEGATIVE Javier/micL NEGATIVE code = HUGO) UA PH DIPSTICK (test code = 6.0 5.0-9.0 SILVERIO) UA PROTEIN DIPSTICK (test 15 mg/dl mg/dl NEGATIVE A code = PROU) UA UROBILINIOGEN DIPSTICK NORMAL mg/dl NORMAL (test code = URO) UA NITRITE DIPSTICK (test NEGATIVE NEGATIVE code = JAYSON) UA LEUKOCYTE ESTERASE NEGATIVE Do/micL NEGATIVE DIPSTICK (test code = LEUU) UA WBC (test code = WBCU) 0-3 WBC/HPF NONE UA RBC (test code = RBCU) 0-2 RBC/HPF 0-3 UA EPITHELIAL CELLS (test 0-3 EPI/HPF 0-3 code = EPIU) UA BACTERIA (test code = TRACE NONE BACU) URINALYSIS [id number] 13:04:00 Test Item Value Reference Range Interpretation Comments UA COLOR (test code = COLU) UA APPEARANCE (test code = APPU) UA GLUCOSE DIPSTICK (test NORMAL mg/dl NORMAL code = DGLUU) UA BILIRUBIN DIPSTICK (test NEGATIVE mg/dL NEGATIVE code = BILU) UA KETONE DIPSTICK (test NEGATIVE mg/dl NEGATIVE code = KETU) UA SPECIFIC GRAVITY (test 1.020 1.000-1.030 code = SGU) UA BLOOD DIPSTICK (test NEGATIVE Javier/micL NEGATIVE code = HUGO) UA PH DIPSTICK (test code = 6.0 5.0-9.0 SILVERIO) UA PROTEIN DIPSTICK (test 15 mg/dl mg/dl NEGATIVE A code = PROU) UA UROBILINIOGEN DIPSTICK NORMAL mg/dl NORMAL (test code = URO) UA NITRITE DIPSTICK (test NEGATIVE NEGATIVE code = JAYSON) UA LEUKOCYTE ESTERASE NEGATIVE Od/micL NEGATIVE DIPSTICK (test code = LEUU) UA WBC (test code = WBCU) WBC/HPF NONE UA RBC (test code = RBCU) RBC/HPF 0-3 UA EPITHELIAL CELLS (test EPI/HPF 0-3 code = EPIU) UA BACTERIA (test code = NONE BACU) CBC W/AUTO [id number] 12:58:00 Test Item Value Reference Range Interpretation Comments WHITE BLOOD CELL (test code = 13.2 K/mm3 4.5-11.0 H WBC) RED BLOOD CELL (test code = 5.60 M/mm3 4.40-5.90 N RBC) HEMOGLOBIN (test code = HGB) 15.1 gm/dL 13.0-17.0 N HEMATOCRIT (test code = HCT) 46.6 % 36.0-48.0 N MEAN CELL VOLUME (test code = 83.2 UM3 80.0-94.0 N MCV) MEAN CELL HGB (test code = MCH) 27.0 UUG 25.5-32.5 N MEAN CELL HGB CONCETRATION 32.4 gm/dL 29.0-35.5 N (test code = MCHC) RED CELL DISTRIBUTION WIDTH 13.6 % 11.5-15.0 N (test code = RDW) RED CELL DISTRIBUTION WIDTH SD 41.0 fL 34.8-50.2 N (test code = RDW-SD) PLATELET COUNT (test code = 236 K/mm3 150-400 N PLT) MEAN PLATELET VOLUME (test code 10.9 fl 7.4-10.4 H = MPV) NEUTROPHIL % (test code = NT%) 75.5 % 49.0-76.0 N IMMATURE GRANULOCYTE % (test 0.6 % 0.0-0.4 H code = IG%) LYMPHOCYTE % (test code = LY%) 16.5 % 23.0-38.0 L MONOCYTE % (test code = MO%) 5.4 % 1.0-10.0 N EOSINOPHIL % (test code = EO%) 1.5 % 1.0-5.0 N BASOPHIL % (test code = BA%) 0.5 % 0.0-1.0 N NUCLEATED RBC % (test code = 0.0 % 0.0-0.1 N NRBC%) NEUTROPHIL # (test code = NT#) 10.0 K/mm3 2.4-6.3 H IMMATURE GRANULOCYTE # (test 0.08 x10 3/uL 0.00-0.07 H code = IG#) LYMPHOCYTE # (test code = LY#) 2.2 K/mm3 1.2-4.0 N MONOCYTE # (test code = MO#) 0.7 K/mm3 0.0-0.6 H EOSINOPHIL # (test code = EO#) 0.2 K/MM3 0.0-0.7 N BASOPHIL # (test code = BA#) 0.1 K/mm3 0.0-0.2 N NUCLEATED RBC # (test code = 0.00 X10 3uL 0.00-0.01 N NRBC#) Notes Date/Time Note Provider Source 2021-10-11 12:30:00-00:00 [facility] ([facility]) EMERGENCY PROVIDER REPORT REPORT#:[id number] REPORT STATUS: Signed DATE:10/11/21 TIME: 1230 PATIENT: VALENCIA HUNG UNIT #: [id number] ROOM/BED: AGE: 21 SEX: M PCP PHYS: No Primary or Family Ph ysician SERVICE AUTHOR: Cherelle Morrow MD * ALL edits or amendments must be made on the el evOLED/computer document * HPI-Foot Prob/Inj General Initial Greet Date/Time 10/11/21 1118 Presentation Chief Complaint Foot injury L, Foot pain L Free Text HPI Notes Free Text HPI Notes Patient is a 21-year-old male with no PMH who pr esents after accidentally getting a catfish gudelia stabbed into his lateral left foot last night. Patient states [place] fishing [place] and caught a ca tfish. He unhooked it and was trying to push it back into the water (c atch and release) so he shoved it with his left foot but accidentally stabbed his own f oot with the pectoral ugdelia. Gudelia appears to have come out completely. Not lo dged in the foot. There is an obvious puncture wound just proximal to the firs t MTP joint on the lateral forefoot. No active bleeding. Minimally TTP. No joint pain. Patient wearing flip-flops. Very unkempt and covered in mud and dirt. Patient has never been diagnosed with COVID. He has not been vaccinated . Patient does not know when his last tetanus shot was. Review of Systems ROS Statements All systems rev neg except as marked. Free Text ROS Notes Free Text ROS Notes Constitutional: No fever or chills Respiratory: No cough or shortness of breath Cardiovascular: No chest pain or palpitations Neurologic: No headache, focal deficits or weakn ess Chronic conditions/symptoms are consider ed negative if unchanged from baseline Additional positives and negatives may be presen t in the HPI Past Medical History - Adult Stated Complaint "I GOT STUNG BY A CATFISH" Allergies Coded Allergies: No Known Allergies (07/25/13) Home Medications Active Scripts ONDANSETRON (ZOFRAN) 4 MG PO Q6H PRN PRN NAUSEA/ VOMITING ONDANSETRON (ZOFRAN) 4 MG PO Q6H PRN PRN NAUSEA /VOMITING #20 TABS Prov: 09/21/20 DICYCLOMINE (BENTYL) 20 MG PO QID DICYCLOMINE (BENTYL) 20 MG PO QID #30 TABS Prov: 09/21/20 Pt reports no significant: Past medical history Past Surgical History: Denies: Appendectomy, Bariatric procedure, CABG, Carotid endarterectomy, Cholecystectomy, , Dialysis shunt/AV fi stula, Hernia repair, Hysterectomy, Pacemaker, Spi ne surgery, Tonsillectomy, , Bilateral tubal ligation, Breast biopsy/proced ure, D C, Hip procedure, ICD, Knee procedure. Alcohol Use Alcohol use (OCCASIONAL) Drug Use Denies recreational drugs Smoking status: Smoking status for patients 13 years ol d or older: Current every day smoker ( 07/08 PPD) Physical Exam Vital Signs Vital Signs First Documented: Result Date Time Pulse Ox 98 10/11 1117 B/P 139/85 10/11 1117 B/P Mean 103 10/11 1117 O2 Delivery Room air 10/11 111 Temp 36.7 10/117 Pulse 98 10/11 1117 Resp 19 10/117 Last Documented: Result Date Time Pulse Ox 98 10/11 1116 B/P 139/85 10/11 1116 B/P Mean 103 10/11 111 O2 Delivery Room air 10/11 1116 Temp 36.7 10/11 1116 Pulse 98 10/11 1117 Resp 19 10/11 1117 Review of Vital Signs Reviewed Focused PE Skin Text/Dict Notes Small puncture wound on lateral left foot just m edial to MTP joint. No active bleeding. Mildly TTP. Free Text PE Notes Free Text PE Notes GEN: Awake, alert. No acute distress. Well-appea ring. Cooperative. HEAD: Atraumatic. Normocephalic. EYES: PERRL. EOMI. No nystagmus. No photophobia. ENT: Airway patent. MMM. Normal pharynx. NECK: Atraumatic. No meningismus. FROM. Nontende r. RESP/CHEST: Breath sounds normal. No respiratory distress. No chest tenderness. CV: RRR. Heart sounds normal. Normal cap refill. ABD/GI: Soft, nontender. BS normoactive. No palp able mass. SKIN: Normal color. No rash. NEURO: Oriented x3. Clear speech. CN II - XII gr ossly intact. BACK: Atraumatic. Nontender. PSYCH: Mood and affect normal. Interpretation Diagnostics Lab Results Interpretation Results Recent Impressions: RADIOLOGY - XR FOOT 3 + V LT 10/11 120 Report Impression - Status: SIGNED Entered: 10/11/2021 1208 IMPRESSION: No acute osseous abnormality. Impression By: Kristina MAXWELL MD Imaging Statement Radiographic studies reviewed and considered in the medical decision-making. Point of Care Testing Pulse Oximetry Pulse Ox % 98 On: Room air Interpretation Interpreted by me, Pulse oximetr y normal Re-Evaluation MDM Re-Evaluation/Progress Re-Evaluation/Progress Text/Dict Note Patient resting comfortably. No distress. Mild d iscomfort but not severe. Discussed results and plan for discharge home. D iscussed importance of antibiotic compliance. Patient voices understand ing and agreement. Return precautions given. Time of Re-Eval 1234 ED Course Medication(s) Ordered Medication(s) Ordered: Anti-Infective Agents Sig/Reese Start time Last Medication Dose Route Stop Time Status Admin Doxycycline 100 MG X1ED STA 10/11 1231 DC 04/0 9 Monohydrate PO 10/11 1232 1251 Serums, Toxoids, And Vaccines Sig/Reese Start time Last Medication Dose Route Stop Time Status Admin Diphtheria/Tetanus/ 0.5 ML X1ED STA 10/11 1230 DC / Acell Pertussis IM 10/11 1231 1252 Patient Discharge Departure Vital Signs/Condition Vital Signs First Documented: Result Date Time Pulse Ox 98 10/11 1117 B/P 139/85 / 1117 B/P Mean 103 / 1117 O2 Delivery Room air 10/11 1117 Temp 36.7 04 1117 Pulse 98 10/11 1117 Resp 19 10/11 1117 Last Documented: Result Date Time Pulse Ox 98 10/11 1117 B/P 139/85 04/ 1117 B/P Mean 103 / 1117 O2 Delivery Room air 10/11 1117 Temp 36.7 10/11 1117 Pulse 98 10/11 1117 Resp 19 10/11 1117 All vital signs available at the time of this en try have been reviewed. Clinical Impression Clinical Impression Primary Impression: Puncture wound of foot Disposition Decision Discharge )( Discharged to Home Yes )( Time 1239 )( Date 10/11/21 Discharge/Care Plan (Auto) Prescriptions Current Visit Scripts DOXYCYCLINE HYCLATE (VIBRAMYCIN) 100 MG PO Q12H DOXYCYCLINE HYCLATE (VIBRAMYCIN) 100 MG PO Q12H #20 CAPS Patient Instructions ED Puncture Wound (Foot) Additional Instructions As discussed, it is very important to keep the w ound clean and dry. Take the antibiotic as directed. Complete the entire cour se, even if you are feeling better. Your wound is at high risk of infection because of the salt water involved and the mechanism of injury. Follow-up with your primary doctor. Return at anytime with new o r worsening symptoms, especially fever, significant swelling of your foot or pus draining from the w ound. Referrals Referral: PRIMARY DOCTOR at 0841 RPT #:[id number] END OF REPORT 2020-09-21 19:13:00-00:00 [facility] ([facility]) EMERGENCY PROVIDER REPORT REPORT#:[id number] REPORT STATUS: Signed DATE:09/21/20 TIME: 1912 PATIENT: VALENCIA HUNG UNIT #: [id number] ROOM/BED: AGE: 20 SEX: M PCP PHYS: No Primary or Family Ph ysician SERVICE AUTHOR: Waylon Holley SQL SSRS SSIS DEVELOPER * ALL edits or amendments must be made on the Pikhub/computer document * HPI-Abd Pain M Under 40 General Confirmed Patient Yes Patient Type Existing patient Initial Greet Date/Time 09/21/20 1138 Assumed Care at Time 1138 Presentation Chief Complaint Abdominal pain Hx Obtained From Patient Sudden in Onset? Yes Onset Occurred Today Free Text HPI Notes Free Text HPI Notes Patient is a 20-year-old male presents emergency room with chief complaint of diffuse abdominal pain onset 3 days ago. Patient reports abdominal pain associated with nausea and vomiting. Denies any diarrhea. Denies any chest pain, fever, chills, body aches. Risk-Abd Pain M Under 40 )( Torsion Risk factors reviewed Review of Systems ROS Statements All systems rev neg except as marked. Focused Review of Systems Constitutional Denies: Chills, Fatigue, Fever, Lethargy, Malais e, Recent wt loss, Weakness - generalized. Respiratory Denies: Cough, non-productive, Cough, productive , Dyspnea on exertion, Hemoptysis, Parox nocturnal dyspnea, Pleuritic p ain, Shortness of breath, Wheezing. Cardiovascular Denies: Chest pain, Dyspnea on exertion, Edema, Orthopnea, Palpitations, Parox nocturnal dyspnea, Syncope. GI Reports: Abdominal pain. Denies: Anorexia, Belch ing, Bloody/tarry stool, Constipation, Diarrhea, Dysphagia, Hematemesis, Hematochezia, Mucousy stool, Melena, Nausea, Rectal pain, Vomiting. Male Denies: Dysuria, Flank pain, Hematuria, Incontinence, Nocturia, Penile discharge , Penile lesion, Scrotal swe lling, Testicular pain, Testicular swelling, Urinary frequency, Urinary urgency, Urination decreased, Urination increased. Musculoskeletal Denies: Back pain, Extremity pain, Extremity swe lling, Joint pain, Joint swelling, Lumbar pain, Myalgia, Neck pain, Thora cic pain. Past Medical History - Adult Stated Complaint ABD PAIN Allergies Coded Allergies: No Known Allergies (07/25/13) Calculated Suicide Risk (nurs) No risk Review of Nursing Notes Rev avail, and agree Past Surgical History: Denies: Appendectomy, Bariatric procedure, CABG, Carotid endarterectomy, Cholecystectomy, , Dialysis shunt/AV fi stula, Hernia repair, Hysterectomy, Pacemaker, Spi ne surgery, Tonsillectomy, , Bilateral tubal ligation, Breast biopsy/proced ure, D C, Hip procedure, ICD, Knee procedure. Smoking status: Smoking status for patients 13 years old or old er: Current every day smoker Date last smoked: 09/21/20 Packs per day: 0.5 Pack years: 0 Physical Exam Vital Signs Vital Signs First Documented: Result Date Time Pulse Ox 98 09/21 113 B/P 160/108 09/21 113 B/P Mean 125 09/21 1132 O2 Delivery Room air 09/21 113 Temp 36.6 09/21 113 Pulse 87 09/21 1132 Resp 17 09/21 1132 Last Documented: Result Date Time B/P 122/82 09/21 1937 B/P Mean 95 09/21 193 Pulse 70 09/21 193 Resp 28 09/21 193 Temp 36.6 09/21 1413 Pulse Ox 98 09/21 1132 O2 Delivery Room air 09/21 1132 Review of Vital Signs Reviewed, Vital signs norm al Focused PE General/Const General/Const Awake, Alert, No acute di stress, Well appearing, Well developed MS Head Head Atraumatic, Normocephalic Eyes Eyes Atraumatic, PERRL Ears/Nose/Throat Ears/Nose/Throat Atraumatic, Airway patent, Muc ous membranes moist, Pharynx NL Resp/Chest Respiratory/Chest Atraumatic, Breath sounds NL, Breath sounds = bilat Cardiovascular Cardiovascular Heart rate NL, Regular rhythm, H eart sounds NL Abdomen/GI Tenderness/Guarding/Rebound Tender RUQ. MS Back Back Atraumatic, Inspection NL, Full range of m otion, Painless range of motion Skin Skin Atraumatic, Color NL, No rash, War m, Dry, Intact, Turgor NL, No swelling Neurologic Neurologic Oriented X3, Speech NL Interpretation Diagnostics Lab Results Interpretation Results Laboratory Tests 09/21/20 1240: [Embedded Image Not Available] Laboratory Tests: 09/21 1240 Chemistry Sodium (134.0 - 147.0 mmol/l) 141 Potassium (3.6 - 5.2 mmol/L) 4.1 Chloride (98.0 - 107.0 mmol/l) 105 Carbon Dioxide (21.0 - 33.0 mmol/l) 26.8 Anion Gap (0 - 20) 13.3 BUN (7.0 - 18.0 mg/dl) 11 Creatinine (0.60 - 1.30 mg/dL) 0.81 Est GFR ( Amer) (133 - 145 mL/min) 156 H Est GFR (Non-Af Amer) (110 - 120 mL/min) 129 H Glucose (70.0 - 110.0 mg/dl) 101 Calcium (8.0 - 10.5 mg/dl) 8.8 Total Bilirubin (0.0 - 1.0 mg/dl) 0.4 AST (15 - 37 Units/L) 18 ALT (12.0 - 78.0 Units/L) 53 Total Alk Phosphatase (50.0 - 136.0 Units/L) 97 Troponin I (0.00 - 0.06 NG/ML) <0.02 Total Protein (6.0 - 8.1 GM/DL) 8.2 H Albumin (3.2 - 4.7 gm/dL) 3.3 Lipase (65.0 - 230.0 Units/L) 79 Hematology WBC (4.5 - 11.0 K/mm3) 13.2 H RBC (4.40 - 5.90 M/mm3) 5.60 Hgb (13.0 - 17.0 gm/dL) 15.1 Hct (36.0 - 48.0 %) 46.6 MCV (80.0 - 94.0 UM3) 83.2 MCH (25.5 - 32.5 UUG) 27.0 MCHC (29.0 - 35.5 gm/dL) 32.4 RDW (11.5 - 15.0 %) 13.6 Plt Count (150 - 400 K/mm3) 236 MPV (7.4 - 10.4 fl) 10.9 H Neut % (Auto) (49.0 - 76.0 %) 75.5 Lymph % (Auto) (23.0 - 38.0 %) 16.5 L [place] % (Auto) (1.0 - 10.0 %) 5.4 Eos % (Auto) (1.0 - 5.0 %) 1.5 Baso % (Auto) (0.0 - 1.0 %) 0.5 Neut # (Auto) (2.4 - 6.3 K/mm3) 10.0 H Lymph # (Auto) (1.2 - 4.0 K/mm3) 2.2 [place] # (Auto) (0.0 - 0.6 K/mm3) 0.7 H Eos # (Auto) (0.0 - 0.7 K/MM3) 0.2 Baso # (Auto) (0.0 - 0.2 K/mm3) 0.1 Absolute Nucleated RBC (0.00 - 0.01 X10 3uL) 0. 00 Immature Gran % (0.0 - 0.4 %) 0.6 H Nucleated RBC % (0.0 - 0.1 %) 0.0 Immature Gran # (0.00 - 0.07 x10 3/uL) 0.08 H Toxicology Urine Opiates Screen (NEGATIVE) NEGATIVE Urine Methadone Screen (NEGATIVE) NEGATIVE Urine Barbiturates (NEGATIVE) NEGATIVE Ur Phencyclidine Scrn (NEGATIVE) NEGATIVE Ur Amphetamines Screen (NEGATIVE) NEGATIVE U Benzodiazepines Scrn (NEGATIVE) NEGATIVE Urine Cocaine Screen (NEGATIVE) NEGATIVE Urine Cannabinoids (NEGATIVE) POSITIVE H Urines Urine Color YELLOW Urine Appearance CLEAR Urine pH (5.0 - 9.0) 6.0 Ur Specific [place] (1.000 - 1.030) 1.020 Urine Protein (NEGATIVE mg/dl) 15 mg/dl H Urine Glucose (UA) (NORMAL mg/dl) NORMAL Urine Ketones (NEGATIVE mg/dl) NEGATIVE Urine Blood (NEGATIVE Javier/micL) NEGATIVE Urine Nitrite (NEGATIVE) NEGATIVE Urine Bilirubin (NEGATIVE mg/dL) NEGATIVE Urine Urobilinogen (NORMAL mg/dl) NORMAL Ur Leukocyte Esterase (NEGATIVE Do/micL) NEGAT SIXTO Urine RBC (0 - 3 RBC/HPF) 0-2 Urine WBC (NONE WBC/HPF) 0-3 Ur Epithelial Cells (0 - 3 EPI/HPF) 0-3 Urine Bacteria (NONE) TRACE Recent Impressions: CAT SCAN - CT ABD PELVIS W/O CONT 09/21 1304 Report Impression - Status: SIGNED Entered: 09/21/2020 1316 IMPRESSION: 1. No acute abnormalities in the abdomen or pelv is. Normal appendix. No obstructive ureteral calculi and no hydroneph rosis seen. 2. Hepatic steatosis. Impression By: Silvia Honeycutt M.D. ULTRASOUND - US ABDOMEN [facility] 09/21 1440 Report Impression - Status: SIGNED Entered: 09/21/2020 1603 IMPRESSION: 1. Layering sludge within the gallbladder. No ch olelithiasis or acute cholecystitis. 2. Hepatomegaly with hepatic steatosis. Impression By: Silvia Honeycutt M.D. Lab Imaging Statement Laboratory radiographic studies reviewed and con sidered in the medical decision-making. Re-Evaluation MDM )( Re-Evaluation/Progress #1 Time of Re-Eval 1915 )( Re-Eval Status Improved Re-Eval Abdomen Soft, Non-tender Abd Pain MDM Note M < 40 The patient is resting comfortably and feels bet ter, is alert and in no distress. The repeat examination is unremarkable and benign; in particular, there is no discomfort at McBurney's point. The history, exam, diagnostic testing, and current condition do not suggest ac [place] appendicitis, bowel obstruction, incarcerated he rnia, testicular torsion, acute cholecystitis, bowel perforation, major gastroint estinal bleeding, severe diverticulitis, sepsis, or other significant pathology to warrant further testing, continued ED treatment, admission, or surgical evaluation at this point. The vital signs have been stable and are within normal limits at this time . The patient does not have uncontrollable pain, intractable vomiting, or ot her significant symptoms. The patient's condition is stable and appropriate fo r discharge. The patient will pursue further outpatient evaluation with the [facility] care physician or other designated or consulting physician as in dicated in the discharge instructions. ED Course Medication(s) Ordered Medication(s) Ordered: Central Nervous System Agents Sig/Reese Start time Last Medication Dose Route Stop Time Status Admin Lorazepam 1 MG X1ED STA 09/21 1453 DC 09/21 PO 09/21 1454 1545 Morphine Sulfate 4 MG X1ED STA 09/21 1250 DC IV 09/21 1251 1302 Electrolytic, Caloric, And Sandra Sig/Reese Start time Last Medication Dose Route Stop Time Status Admin Sodium Chloride 1,000 ML X1ED STA 09/21 1250 DC 09/21 IV 09/21 1349 1303 Gastrointestinal Drugs Sig/Reese Start time Last Medication Dose Route Stop Time Status Admin Al Hydrox/Mg Hydrox/ 30 ML DAILY PRN PRN 09/21 1400 CKD 09/21 Simethicone PO 10/21 1359 1545 Lidocaine HCl 20 ML Ondansetron HCl 4 MG X1ED STA 09/21 1250 DC IV 09/21 1251 1301 Patient Discharge Departure Vital Signs/Condition Vital Signs First Documented: Result Date Time Pulse Ox 98 09/21 1132 B/P 160/108 09/21 1132 B/P Mean 125 09/21 1132 O2 Delivery Room air 09/21 113 Temp 36.6 09/21 113 Pulse 87 09/21 1132 Resp 17 09/21 1132 Last Documented: Result Date Time B/P 122/82 09/21 193 B/P Mean 95 09/21 193 Pulse 70 09/21 1938 Resp 28 09/21 193 Temp 36.6 09/21 1413 Pulse Ox 98 09/21 1132 O2 Delivery Room air 09/21 1132 All vital signs available at the time of this en try have been reviewed. Condition Stable Clinical Impression Clinical Impression Primary Impression: Abdominal pain Secondary Impressions: Nausea vomiting Time of Impression 1916 Disposition Decision Discharge )( Discharged to Home Yes )( Time 1916 )( Date 09/21/20 Discharge/Care Plan Counseled Regarding Diagnosis, Lab results, Imag ing studies, Prescriptions, Smoking cessation (Auto) Prescriptions Current Visit Scripts ONDANSETRON (ZOFRAN) 4 MG PO Q6H PRN PRN NAUSEA/ VOMITING ONDANSETRON (ZOFRAN) 4 MG PO Q6H PRN PRN NAUSEA /VOMITING #20 TABS DICYCLOMINE (BENTYL) 20 MG PO QID DICYCLOMINE (BENTYL) 20 MG PO QID #30 TABS Prescriptions Reviewed Risks, Benefits, Alternat sixto treatment Patient Instructions ED Abdominal Pain Unknown C ause ..., ED Vomiting (Adult) Referrals PRIMARY CARE: 2-3 Days Klaudia Schwartz MD: 2-3 Days Discharge Note I have spoken with the patie nt and/or caregivers. I have explained the patient's condition, diagnoses and christoph atment plan based on the information available to me at this time. I have answered the patient's and/ or caregiver's questions and addressed any concerns. The patient and/or careg nacho have as good an understanding of the patient 's diagnosis, condition and treatment plan as can be expected at this point. The vital signs have bee n stable. The patient's condition is stable and appr opriate for discharge from the emergency department. The patient will pursue further outpatient evalu ation with the primary care physician or other designated or consulting phys ician as outlined in the discharge instructions. The patient and/or caregivers are agreeable to this plan of care and follow-up instructions have been exp lained in detail. The patient and/or caregivers have received these instructio ns in written format and have expressed an understanding of the discharge inst ructions. The patient and/or caregivers are aware that any significant change in condition or worsening of symptoms should prompt an immediate return to [facility] or the closest emergency department or a call to 911. at 2135 RPT #:[id number] END OF REPORT 2020-09-21 19:13:00-00:00 [facility] ([facility]) EMERGENCY PROVIDER REPORT REPORT#:[id number] REPORT STATUS: Signed DATE:09/21/20 TIME: 1912 PATIENT: VALENCIA HUNG UNIT #: [id number] ROOM/BED: AGE: 20 SEX: M PCP PHYS: No Primary or Family Ph ysician SERVICE AUTHOR: Waylon Holley NP * ALL edits or amendments must be made on the Pikhub/computer document * Waylon Holley 09/21/201912: HPI-Abd Pain M Under 40 General Confirmed Patient Yes Patient Type Existing patient Initial Greet Date/Time 09/21/20 1138 Assumed Care at Time 1138 Presentation Chief Complaint Abdominal pain Hx Obtained From Patient Sudden in Onset? Yes Onset Occurred Today Free Text HPI Notes Free Text HPI Notes Patient is a 20-year-old male presents emergency room with chief complaint of diffuse abdominal pain onset 3 days ago. Patient reports abdominal pain associated with nausea and vomiting. Denies any diarrhea. Denies any chest pain, fever, chills, body aches. Risk-Abd Pain M Under 40 )( Torsion Risk factors reviewed Review of Systems ROS Statements All systems rev neg except as marked. Focused Review of Systems Constitutional Denies: Chills, Fatigue, Fever, Lethargy, Malais e, Recent wt loss, Weakness - generalized. Respiratory Denies: Cough, non-productive, Cough, productive , Dyspnea on exertion, Hemoptysis, Parox nocturnal dyspnea, Pleuritic p ain, Shortness of breath, Wheezing. Cardiovascular Denies: Chest pain, Dyspnea on exertion, Edema, Orthopnea, Palpitations, Parox nocturnal dyspnea, Syncope. GI Reports: Abdominal pain. Denies: Anorexia, Belch ing, Bloody/tarry stool, Constipation, Diarrhea, Dysphagia, Hematemesis, Hematochezia, Mucousy stool, Melena, Nausea, Rectal pain, Vomiting. Male Denies: Dysuria, Flank pain, Hematuria, Incontinence, Nocturia, Penile discharge , Penile lesion, Scrotal swe lling, Testicular pain, Testicular swelling, Urinary frequency, Urinary urgency, Urination decreased, Urination increased. Musculoskeletal Denies: Back pain, Extremity pain, Extremity swe lling, Joint pain, Joint swelling, Lumbar pain, Myalgia, Neck pain, Thora cic pain. Past Medical History - Adult Stated Complaint ABD PAIN Allergies Coded Allergies: No Known Allergies (07/25/13) Calculated Suicide Risk (nurs) No risk Review of Nursing Notes Rev avail, and agree Past Surgical History: Denies: Appendectomy, Bariatric procedure, CABG, Carotid endarterectomy, Cholecystectomy, , Dialysis shunt/AV fi stula, Hernia repair, Hysterectomy, Pacemaker, Spi ne surgery, Tonsillectomy, , Bilateral tubal ligation, Breast biopsy/proced ure, D C, Hip procedure, ICD, Knee procedure. Smoking status: Smoking status for patients 13 years old or old er: Current every day smoker Date last smoked: 09/21/20 Packs per day: 0.5 Pack years: 0 Physical Exam Vital Signs Vital Signs First Documented: Result Date Time Pulse Ox 98 09/21 1132 B/P 160/108 09/21 1132 B/P Mean 125 09/21 1132 O2 Delivery Room air 09/21 113 Temp 36.6 09/21 1132 Pulse 87 09/21 1132 Resp 17 09/21 1132 Last Documented: Result Date Time B/P 122/82 09/21 1937 B/P Mean 95 09/21 1937 Pulse 70 09/21 1937 Resp 28 09/21 1937 Temp 36.6 09/21 1413 Pulse Ox 98 09/21 113 O2 Delivery Room air 09/21 113 Review of Vital Signs Reviewed, Vital signs norm al Focused PE General/Const General/Const Awake, Alert, No acute di stress, Well appearing, Well developed MS Head Head Atraumatic, Normocephalic Eyes Eyes Atraumatic, PERRL Ears/Nose/Throat Ears/Nose/Throat Atraumatic, Airway patent, Muc ous membranes moist, Pharynx NL Resp/Chest Respiratory/Chest Atraumatic, Breath sounds NL, Breath sounds = bilat Cardiovascular Cardiovascular Heart rate NL, Regular rhythm, H eart sounds NL Abdomen/GI Tenderness/Guarding/Rebound Tender RUQ. MS Back Back Atraumatic, Inspection NL, Full range of m otion, Painless range of motion Skin Skin Atraumatic, Color NL, No rash, War m, Dry, Intact, Turgor NL, No swelling Neurologic Neurologic Oriented X3, Speech NL Interpretation Diagnostics Lab Results Interpretation Results Laboratory Tests 09/21/20 1240: [Embedded Image Not Available] Laboratory Tests: 09/22 1239 Chemistry Sodium (134.0 - 147.0 mmol/l) 141 Potassium (3.6 - 5.2 mmol/L) 4.1 Chloride (98.0 - 107.0 mmol/l) 105 Carbon Dioxide (21.0 - 33.0 mmol/l) 26.8 Anion Gap (0 - 20) 13.3 BUN (7.0 - 18.0 mg/dl) 11 Creatinine (0.60 - 1.30 mg/dL) 0.81 Est GFR ( Amer) (133 - 145 mL/min) 156 H Est GFR (Non-Af Amer) (110 - 120 mL/min) 129 H Glucose (70.0 - 110.0 mg/dl) 101 Calcium (8.0 - 10.5 mg/dl) 8.8 Total Bilirubin (0.0 - 1.0 mg/dl) 0.4 AST (15 - 37 Units/L) 18 ALT (12.0 - 78.0 Units/L) 53 Total Alk Phosphatase (50.0 - 136.0 Units/L) 97 Troponin I (0.00 - 0.06 NG/ML) <0.02 Total Protein (6.0 - 8.1 GM/DL) 8.2 H Albumin (3.2 - 4.7 gm/dL) 3.3 Lipase (65.0 - 230.0 Units/L) 79 Hematology WBC (4.5 - 11.0 K/mm3) 13.2 H RBC (4.40 - 5.90 M/mm3) 5.60 Hgb (13.0 - 17.0 gm/dL) 15.1 Hct (36.0 - 48.0 %) 46.6 MCV (80.0 - 94.0 UM3) 83.2 MCH (25.5 - 32.5 UUG) 27.0 MCHC (29.0 - 35.5 gm/dL) 32.4 RDW (11.5 - 15.0 %) 13.6 Plt Count (150 - 400 K/mm3) 236 MPV (7.4 - 10.4 fl) 10.9 H Neut % (Auto) (49.0 - 76.0 %) 75.5 Lymph % (Auto) (23.0 - 38.0 %) 16.5 L [place] % (Auto) (1.0 - 10.0 %) 5.4 Eos % (Auto) (1.0 - 5.0 %) 1.5 Baso % (Auto) (0.0 - 1.0 %) 0.5 Neut # (Auto) (2.4 - 6.3 K/mm3) 10.0 H Lymph # (Auto) (1.2 - 4.0 K/mm3) 2.2 [place] # (Auto) (0.0 - 0.6 K/mm3) 0.7 H Eos # (Auto) (0.0 - 0.7 K/MM3) 0.2 Baso # (Auto) (0.0 - 0.2 K/mm3) 0.1 Absolute Nucleated RBC (0.00 - 0.01 X10 3uL) 0. 00 Immature Gran % (0.0 - 0.4 %) 0.6 H Nucleated RBC % (0.0 - 0.1 %) 0.0 Immature Gran # (0.00 - 0.07 x10 3/uL) 0.08 H Toxicology Urine Opiates Screen (NEGATIVE) NEGATIVE Urine Methadone Screen (NEGATIVE) NEGATIVE Urine Barbiturates (NEGATIVE) NEGATIVE Ur Phencyclidine Scrn (NEGATIVE) NEGATIVE Ur Amphetamines Screen (NEGATIVE) NEGATIVE U Benzodiazepines Scrn (NEGATIVE) NEGATIVE Urine Cocaine Screen (NEGATIVE) NEGATIVE Urine Cannabinoids (NEGATIVE) POSITIVE H Urines Urine Color YELLOW Urine Appearance CLEAR Urine pH (5.0 - 9.0) 6.0 Ur Specific [place] (1.000 - 1.030) 1.020 Urine Protein (NEGATIVE mg/dl) 15 mg/dl H Urine Glucose (UA) (NORMAL mg/dl) NORMAL Urine Ketones (NEGATIVE mg/dl) NEGATIVE Urine Blood (NEGATIVE Javier/micL) NEGATIVE Urine Nitrite (NEGATIVE) NEGATIVE Urine Bilirubin (NEGATIVE mg/dL) NEGATIVE Urine Urobilinogen (NORMAL mg/dl) NORMAL Ur Leukocyte Esterase (NEGATIVE Do/micL) NEGAT SIXTO Urine RBC (0 - 3 RBC/HPF) 0-2 Urine WBC (NONE WBC/HPF) 0-3 Ur Epithelial Cells (0 - 3 EPI/HPF) 0-3 Urine Bacteria (NONE) TRACE Recent Impressions: CAT SCAN - CT ABD PELVIS W/O CONT 09/21 1304 Report Impression - Status: SIGNED Entered: 09/21/2020 1316 IMPRESSION: 1. No acute abnormalities in the abdomen or pelv is. Normal appendix. No obstructive ureteral calculi and no hydroneph rosis seen. 2. Hepatic steatosis. Impression By: Silvia Honeycutt M.D. ULTRASOUND - [facility]BDOMEN [facility] 09/21 1440 Report Impression - Status: SIGNED Entered: 09/21/2020 1603 IMPRESSION: 1. Layering sludge within the gallbladder. No ch olelithiasis or acute cholecystitis. 2. Hepatomegaly with hepatic steatosis. Impression By: Silvia Honeycutt M.D. Lab Imaging Statement Laboratory radiographic studies reviewed and con sidered in the medical decision-making. Re-Evaluation MDM )( Re-Evaluation/Progress #1 Time of Re-Eval 191 )( Re-Eval Status Improved Re-Eval Abdomen Soft, Non-tender Abd Pain MDM Note M < 40 The patient is resting comfortably and feels bet ter, is alert and in no distress. The repeat examination is unremarkable and benign; in particular, there is no discomfort at McBurney's point. The history, exam, diagnostic testing, and current condition do not suggest ac [place] appendicitis, bowel obstruction, incarcerated he rnia, testicular torsion, acute cholecystitis, bowel perforation, major gastroint estinal bleeding, severe diverticulitis, sepsis, or other significant pathology to warrant further testing, continued ED treatment, admission, or surgical evaluation at this point. The vital signs have been stable and are within normal limits at this time . The patient does not have uncontrollable pain, intractable vomiting, or ot her significant symptoms. The patient's condition is stable and appropriate fo r discharge. The patient will pursue further outpatient evaluation with the [facility] physician or other designated or consulting physician as in dicated in the discharge instructions. ED Course Medication(s) Ordered Medication(s) Ordered: Central Nervous System Agents Sig/Reese Start time Last Medication Dose Route Stop Time Status Admin Lorazepam 1 MG X1ED STA 09/21 1453 DC 09/21 PO 09/21 1454 1545 Morphine Sulfate 4 MG X1ED STA 09/21 1250 DC IV 09/21 1251 1302 Electrolytic, Caloric, And Sandra Sig/Reese Start time Last Medication Dose Route Stop Time Status Admin Sodium Chloride 1,000 ML X1ED STA 09/21 1250 DC 09/21 IV 09/21 1349 1303 Gastrointestinal Drugs Sig/Reese Start time Last Medication Dose Route Stop Time Status Admin Al Hydrox/Mg Hydrox/ 30 ML DAILY PRN PRN 09/21 1400 CKD 09/21 Simethicone PO 10/21 1359 1545 Lidocaine HCl 20 ML Ondansetron HCl 4 MG X1ED STA 09/21 1250 DC IV 09/21 1251 1301 Patient Discharge Departure Vital Signs/Condition Vital Signs First Documented: Result Date Time Pulse Ox 98 09/21 1132 B/P 160/108 09/21 1132 B/P Mean 125 09/21 1132 O2 Delivery Room air 09/21 1132 Temp 36.6 09/21 1132 Pulse 87 09/21 1132 Resp 17 09/21 1132 Last Documented: Result Date Time B/P 122/82 09/21 1937 B/P Mean 95 09/21 193 Pulse 70 09/21 1938 Resp 28 09/21 193 Temp 36.6 09/21 1413 Pulse Ox 98 09/21 1132 O2 Delivery Room air 09/21 1132 All vital signs available at the time of this en try have been reviewed. Condition Stable Clinical Impression Clinical Impression Primary Impression: Abdominal pain Secondary Impressions: Nausea vomiting Time of Impression 1916 Disposition Decision Discharge )( Discharged to Home Yes )( Time 1916 )( Date 09/21/20 Discharge/Care Plan Counseled Regarding Diagnosis, Lab results, Imag ing studies, Prescriptions, Smoking cessation (Auto) Prescriptions Current Visit Scripts ONDANSETRON (ZOFRAN) 4 MG PO Q6H PRN PRN NAUSEA/ VOMITING ONDANSETRON (ZOFRAN) 4 MG PO Q6H PRN PRN NAUSEA /VOMITING #20 TABS DICYCLOMINE (BENTYL) 20 MG PO QID DICYCLOMINE (BENTYL) 20 MG PO QID #30 TABS Prescriptions Reviewed Risks, Benefits, Alternat sixto treatment Patient Instructions ED Abdominal Pain Unknown C ause ..., ED Vomiting (Adult) Referrals PRIMARY CARE: 2-3 Days Klaudia Schwartz MD: 2-3 Days Discharge Note I have spoken with the patie nt and/or caregivers. I have explained the patient's condition, diagnoses and christoph atment plan based on the information available to me at this time. I have answered the patient's and/ or caregiver's questions and addressed any concerns. The patient and/or careg nacho have as good an understanding of the patient 's diagnosis, condition and treatment plan as can be expected at this point. The vital signs have bee n stable. The patient's condition is stable and appr opriate for discharge from the emergency department. The patient will pursue further outpatient evalu ation with the primary care physician or other designated or consulting phys ician as outlined in the discharge instructions. The patient and/or caregivers are agreeable to this plan of care and follow-up instructions have been exp lained in detail. The patient and/or caregivers have received these instructio ns in written format and have expressed an understanding of the discharge inst ructions. The patient and/or caregivers are aware that any significant change in condition or worsening of symptoms should prompt an immediate return to [facility] or the closest emergency department or a call to 911. Jamar Beck 09/28/20 0233: Patient Discharge Departure Supervising Physician Note MidLv Saw Pt Alone I have reviewed the PA/SQL SSRS SSIS DEVELOPER's note and plan of car e. I was available for consultation as needed at al l times during the patient's visit in the emergency department. I agree with the clinical impression , plan and disposition. at 1858 Electronically Signed by Jamar Beck DO on at 8233 RPT #:[id number] END OF REPORT
[2022-12-12] MEDS ORDERED: ALBUTEROL 2.5 MG/3 ML NEB SOL ONE (21:33)
[2022-12-12] MEDS ORDERED: IPRATROPIUM BROM 0.5MG/2.5ML ONE (21:34)
--- NOTE | 2022-12-12 22:02 | RAD REPORT ---
EXAM DESCRIPTION: RAD - Chest Pa And Lat (2 Views) - 12/12/2022 9:51 pm CLINICAL HISTORY: CONGESTION COMPARISON: <Comparisons> FINDINGS: Lines: None. Lungs: No evidence of edema or pneumonia. Pleural: No significant pleural effusions or pneumothorax. Cardiac: The heart size is within normal limits. Mediastinum: Within normal limits. Bones: No acute fractures. Other: None IMPRESSION: No acute cardiopulmonary disease.
--- NOTE | 2022-12-12 22:22 | EDPHYS ---
Physician Documentation [facility] Name: Fadi Riojas Age: 22 yrs Sex: Male : 2000 Arrival Date: 12/12/2022 Time: 20:17 Bed 14 Private MD: ED Physician Jaquan Mcdonnell HPI: 12/12 22:19 This 22 yrs old Male presents to ER via Ambulatory with complaints of bs3 Shortness Of Breath, Painful Cough. 22:19 Patient with a remote history of asthma presents with cough nasal congestion for bs3 approximately 3 weeks no fevers or slight difficulty breathing swelling or anything else bothering him symptoms are mild in nature he has not tried anything for the. Historical: - Allergies: 20:38 No Known Allergies; lg3 - Home Meds: 20:38 None [Active]; lg3 - PMHx: 20:38 None; lg3 - PSHx: 20:38 right arm; lg3 - Immunization history:: Adult Immunizations up to date, Client reports receiving the 2nd dose of the Covid vaccine, Flu vaccine is not up to date. - Social history:: Smoking status: Patient reports the use of cigarette tobacco products, smokes one-half pack cigarettes per day, Patient/guardian denies using alcohol, street drugs. ROS: 22:19 Constitutional: Negative for fever, chills bs3 22:19 All other systems are negative. Exam: 22:19 Constitutional: This is a well developed, well nourished patient who is awake, alert, bs3 and in no acute distress. Head/Face: Normocephalic, atraumatic. Eyes: Pupils equal round and reactive to light, extra-ocular motions intact. Lids and lashes normal. ENT: mmm, no posterior phyarngeal erythema Neck: Trachea midline, no thyromegaly, no neck stiffness Chest/axilla: Normal chest wall appearance and motion. Nontender with no deformity. No lesions are appreciated. Cardiovascular: Regular rate and rhythm with a normal S1 and S2. symmetric pulses in upper extremities Respiratory: Expiratory wheeze bilaterally no respiratory distress Abdomen/GI: Soft, non-tender, no rebound or guarding MS/ Extremity: Pulses equal, no cyanosis. Neurovascular intact. Full, normal range of motion. Neuro: Awake and alert, GCS 15, oriented to person, place, time, and situation. Cranial nerves II-XII grossly intact. Motor strength 5/5 in all extremities. Sensory grossly intact. Psych: Awake, alert, with orientation to person, place and time. Behavior, mood, and affect are within normal limits. Vital Signs: 20:37 BP 159 / 90; Pulse 97; Resp 19 S; Temp 99(O); Pulse Ox 97% on R/A; Weight 158.76 kg lg3 (R); Height 6 ft. 3 in. (R); 22:27 BP 146 / 88; Pulse 104; Resp 18 S; Temp 98.7(TE); Pulse Ox 99% on R/A; lg3 20:37 Body Mass Index 43.75 (158.76 kg, 190.5 cm) lg3 MDM: 20:34 Patient medically screened. bs3 22:19 Data reviewed: vital signs, nurses notes, EMS record. ED course: Patient with URI-like bs3 symptoms we will do an x-ray to rule out pneumonia given duration of symptoms his vital signs are notable for elevated blood pressure otherwise normal suctions normal temperature is normal we will trial a DuoNeb given the wheezing and history of asthma X-ray negative for acute pathology as interpreted by myself He had improvement with the DuoNeb we will treat for possible asthma exacerbation or reactive airway disease return precautions given advise follow-up for blood pressure. 12/12 20:35 Order name: XRAY Chest Pa And Lat (2 Views); Complete Time: 22:21 bs3 Administered Medications: 21:33 Drug: DuoNeb Nebulize (3:1) (2.5 mg - 0.5 mg) 3 ml Route: Nebulizer; 3 22:15 Follow up: Response: No adverse reaction lg3 Disposition Summary: 12/12/22 22:22 Discharge Ordered Location: Home bs3 Problem: new bs3 Symptoms: have improved bs3 Condition: Stable bs3 Diagnosis - Acute upper respiratory infection, unspecified bs3 - Essential (primary) hypertension bs3 Followup: bs3 - With: Private Physician - When: 10 - 14 days - Reason: Re-evaluation by your physician Discharge Instructions: - Discharge Summary Sheet bs3 - Upper Respiratory Infection, Adult bs3 - Viral Respiratory Infection bs3 - Hypertension, Adult, [id number] bs3 Forms: - Medication Reconciliation Form bs3 - Thank You Letter bs3 - Antibiotic Education bs3 - Prescription Opioid Use bs3 Prescriptions: - Ventolin HFA 90 mcg/actuation Inhalation HFA Aerosol Inhaler - inhale 2 puff by INHALATION route every 4 hours administer via ventilator; 1 bs3 Applicator; Refills: 0, Product Selection Permitted - Prednisone 20 mg Oral Tablet - take 3 tablets by ORAL route once daily for 5 days; 15 tablet; Refills: 0, bs3 Product Selection Permitted Signatures: Dispatcher [employer] Liliana Scott RN RN lg3 Mere Serna RN RN eh3 Jaquan Mcdonnell MD MD bs3
--- NOTE | 2022-12-12 22:22 | ER ---
Nurse's Notes [facility] Name: Fadi Riojas Age: 22 yrs Sex: Male : 2000 Arrival Date: 12/12/2022 Time: 20:17 Bed 14 Private MD: Diagnosis: Acute upper respiratory infection, unspecified;Essential (primary) hypertension Presentation: 12/12 20:37 Chief complaint: Patient states: cough, congestion, sore throat X3 weeks. Coronavirus lg3 screen: Client denies travel out of the [place] in the last 14 days. Client presents with at least one sign or symptom that may indicate coronavirus-19. Standard/surgical mask placed on the client. Ebola Screen: No symptoms or risks identified at this time. Initial Sepsis Screen: Does the patient meet any 2 criteria? No. Patient's initial sepsis screen is negative. Does the patient have a suspected source of infection? No. Patient's initial sepsis screen is negative. Risk Assessment: Do you want to hurt yourself or someone else? Patient reports no desire to harm self or others. Onset of symptoms is unknown. 20:37 Method Of Arrival: Ambulatory lg3 20:37 Acuity: BRYNN 4 lg3 Triage Assessment: 20:38 General: Appears in no apparent distress. comfortable, Behavior is calm, cooperative. lg3 Pain: Complains of pain in throat. EENT: No deficits noted. Reports difficulty swallowing nasal congestion. Neuro: No deficits noted. Gomez Agitation-Sedation Scale (RASS): 0 - Alert and Calm Level of Consciousness is awake, alert, obeys commands, Oriented to person, place, time, situation. Cardiovascular: No deficits noted. Denies chest pain, Capillary refill < 3 seconds Clubbing of nail beds is absent JVD is absent Patient's skin is warm and dry. Respiratory: Reports shortness of breath cough that is hacking, persistent pain with cough Onset: The symptoms/episode began/occurred at an unknown time. the patient has mild shortness of breath. GI: No deficits noted. No signs and/or symptoms were reported involving the gastrointestinal system. : No deficits noted. No signs and/or symptoms were reported regarding the genitourinary system. Derm: No deficits noted. No signs and/or symptoms reported regarding the dermatologic system. Skin is intact, is healthy with good turgor, Skin is dry, Skin is normal, Skin temperature is warm. Musculoskeletal: No deficits noted. No signs and/or symptoms reported regarding the musculoskeletal system. Circulation, motion, and sensation intact. Range of motion: intact in all extremities. Historical: - Allergies: 20:38 No Known Allergies; lg3 - Home Meds: 20:38 None [Active]; lg3 - PMHx: 20:38 None; lg3 - PSHx: 20:38 right arm; lg3 - Immunization history:: Adult Immunizations up to date, Client reports receiving the 2nd dose of the Covid vaccine, Flu vaccine is not up to date. - Social history:: Smoking status: Patient reports the use of cigarette tobacco products, smokes one-half pack cigarettes per day, Patient/guardian denies using alcohol, street drugs. Screenin:00 [facility] ED Fall Risk Assessment (Adult) Score/Fall Risk Level 0 - 2 = Low Risk. Abuse eh3 screen: Denies threats or abuse. Denies injuries from another. Nutritional screening: No deficits noted. Tuberculosis screening: No symptoms or risk factors identified. Assessment: 21:00 General: Appears in no apparent distress. uncomfortable, Behavior is calm, cooperative, eh3 appropriate for age. Pain: Complains of pain in chest. Neuro: Level of Consciousness is awake, alert, obeys commands, Oriented to person, place, time, situation. Cardiovascular: Capillary refill < 3 seconds Patient's skin is warm and dry. Rhythm is sinus rhythm. Respiratory: Reports shortness of breath pain with cough Airway is patent Respiratory effort is even, unlabored, Respiratory pattern is regular, symmetrical. GI: Abdomen is round non-distended. Derm: Skin is pink, warm \T\ dry. Musculoskeletal: Circulation, motion, and sensation intact. 22:27 Reassessment: Patient appears in no apparent distress at this time. No changes from lg3 previously documented assessment. Patient and/or family updated on plan of care and expected duration. Pain level reassessed. Patient is alert, oriented x 3, equal unlabored respirations, skin warm/dry/pink. Patient states feeling better. Patient states symptoms have improved. Respiratory: No deficits noted. Airway is patent Respiratory effort is even, unlabored, Respiratory pattern is regular, symmetrical, Breath sounds are clear bilaterally. Vital Signs: 20:37 BP 159 / 90; Pulse 97; Resp 19 S; Temp 99(O); Pulse Ox 97% on R/A; Weight 158.76 kg lg3 (R); Height 6 ft. 3 in. (R); 22:27 BP 146 / 88; Pulse 104; Resp 18 S; Temp 98.7(TE); Pulse Ox 99% on R/A; lg3 20:37 Body Mass Index 43.75 (158.76 kg, 190.5 cm) lg3 ED Course: 20:19 Patient arrived in ED. ts1 20:34 Jaquan Mcdonnell MD is Attending Physician. bs3 20:38 Triage completed. lg3 20:38 Arm band placed on left wrist. lg3 21:00 Patient has correct armband on for positive identification. Bed in low position. Call 3 light in reach. Side rails up X2. Pulse ox on. NIBP on. 21:31 Mere Serna RN is Primary Nurse. eh3 21:35 Report given to LAVERN Ford. 3 21:52 XRAY Chest Pa And Lat (2 Views) In Process Unspecified. EDMS 22:27 No provider procedures requiring assistance completed. Patient did not have IV access lg3 during this emergency room visit. Administered Medications: 21:33 Drug: DuoNeb Nebulize (3:1) (2.5 mg - 0.5 mg) 3 ml Route: Nebulizer; 3 22:15 Follow up: Response: No adverse reaction lg3 Medication: 22:27 VIS not applicable for this client. lg3 Outcome: 22:22 Discharge ordered by . bs3 22:27 Discharged to home ambulatory. lg3 22:27 Condition: stable 22:27 Discharge instructions given to patient, Instructed on discharge instructions, follow up and referral plans. medication usage, Demonstrated understanding of instructions, follow-up care, medications, Prescriptions given X 2. 22:28 Patient left the ED. lg3 Signatures: Dispatcher [employer] EDMS Liliana Saba RN RN 3 Mere Serna RN RN 3 Jaquan Mcdonnell MD MD bs3 Mini Veronica PAS PAS ts1
[2022-12-12 23:13] VITALS: BP 146/88; TEMP 98.7; O2SAT 99
== END 2022-12-12 22:28 | disposition home or self-care (01) ==
LOC: ER 20:17
DX: J06.9 Acute upper respiratory infection, unspecified (principal); I10 Essential (primary) hypertension
CPT/HCPCS: 71046; 94640; 99284; J7613; J7644

== ENCOUNTER 2022-12-23 18:31 | Emergency (ER) | payer BC ==
--- OUTSIDE RECORDS SUMMARY | 2022-12-23 18:35 | XMS REPORT | Continuity of Care Document ---
:2000 Author Organization [facility] t Address [address] [place] [address] [address] [place] [address] Care Team Providers Name Role Phone ROLANDO MOSCOSO Primary Care Physician Unavailable JANINE RODRIGUEZ Attending Clinician Unavailable ROLANDO MOSCOSO Attending Clinician Unavailable Campbell Castro Attending Clinician Cherelle Morrow Attending Clinician Unavailable Janine Rodriguez MD Attending Clinician Doctor Unassigned, [place] Attending Clinician Unavailable MICHEL LAUGHLIN Attending Clinician [...] Attending Clinician Angel Torres MD Attending Clinician FAILLACE, JANINE Admitting Clinician Unavailable Physician, No Primary or Family Admitting Clinician Janine Cunningham MD Admitting Clinician Payers Payer Name Policy Type Policy Number Effective Date Expiration Date Delroy sousa [facility] [id number] 2020 00:00:00 Problems Condition Condition Condition Status [...] e type Obesity Obesity Disease Active Univers 1-06 ity of 00:00: [place] 00 Medical Branch Essential Essential Disease Active Uni vers hypertensi hypertensi 07-10 it y of on on 00:00: [place] 00 [facility] Allergies, Adverse Reactions, Alerts Allergy Allergy Status Severity Reaction(s) Onset Inactive Treating Comm ents Source Name Type Date Date Clinician No Known DA Active [facility] NO KNOWN Drug Active Univers ALLERGIE Class ity of S [facility] Social History Social Habit Start Date Stop Date Quantity Comments Source Exposure to Not sure University of SARS-CoV-2 [place] Medical (event) [place] Alcohol intake 2021-01-15 2021-01-15 Current [facility] 00:00:00 00:00:00 non-drinker of [facility] alcohol (finding) [place] Tobacco use and 2013-11-14 2013-11-14 Smokeless tobacco Un iversity of exposure 00:00:00 00:00:00 non-user [facility] Sex Assigned At 2000 2000 Universit y of 00:00:00 00:00:00 [facility] Smoking Status Start Date Stop Date Source Never smoked tobacco [facility] Medications Ordered Filled Start Stop Current Ordering Indication Dosage Frequency Signature Comments Components Source Medication Medication Date Date Medication? Clinician (SIG) Name Name ibuprofen Yes [id number] 800mg Take 1 Univers 800 mg 7-07 tablet by ity of tablet 00:00: mouth [place] 00 every 6 Medical (six) Branch hours as needed for Pain (scale 1-3) for up to 30 doses. ibuprofen Yes [id number] 800mg Take 1 Univers 800 mg 7-07 tablet by ity of tablet 00:00: mouth [place] 00 every 6 Medical (six) Branch hours as needed for Pain (scale 1-3) for up to 30 doses. ibuprofen Yes [id number] 800mg Take 1 Univers 800 mg 7-07 tablet by ity of tablet 00:00: mouth [place] 00 every 6 Medical (six) Branch hours as needed for Pain (scale 1-3) for up to 30 doses. ibuprofen Yes [id number] 800mg Take 1 Univers 800 mg 7-07 tablet by ity of tablet 00:00: mouth [place] 00 every 6 Medical (six) Branch hours as needed for Pain (scale 1-3) for up to 30 doses. ibuprofen Yes [id number] 800mg Take 1 Univers 800 mg 7-07 tablet by ity of tablet 00:00: mouth [place] 00 every 6 Medical (six) Branch hours as needed for Pain (scale 1-3) for up to 30 doses. ibuprofen Yes [id number] 800mg Take 1 Univers 800 mg 7-07 tablet by ity of tablet 00:00: mouth [place] 00 every 6 Medical (six) Branch hours as needed for Pain (scale 1-3) for up to 30 doses. Vital Signs Vital Name Observation Time Observation Value Comments Source Body temperature 2021-07-07 20:13:00 36.06 Annika Univ [facility] Body height 2021-07-07 20:13:00 190.5 cm [facility] Body weight 2021-07-07 20:13:00 171.46 kg [facility] BMI 2021-07-07 20:13:00 47.25 kg/m2 [facility] Procedures This patient has no known procedures. Encounters Start End Encounter Admission Attending Care Care Encounter Source Date/Time Date/Time Type Type Clinicians Facility Department ID 2021-05-[address] [facility] [id number] Univers 06:25:20 ity of [facility] 2021-05-[address] [facility] [id number] Univers 01:08:17 ity of [facility] 2021-05-[address] [facility] [id number] Univers 06:13:50 ity [facility] 2021-05-[address] [facility] SOR [id number] Univers 04:21:39 JANINE ity [facility] 2021-05-[address] [facility] [id number] Univers 20:12:00 ity [facility] 2020-09-21 Inpatient [facility] [id number] [facility] 11:31:00 [id number] [facility] 2022-04-08 2022-04-08 Outpatient Nicola MOSCOSO [facility] [id number] Univers 10:20:00 10:20:00 ROLANDO [facility] 2022-04-06 2022-04-06 Telephone [facility] 1.2.840.114 [id number] Univers 00:00:00 00:00:00 [facility] 350.1.13.10 it y of [place] 4.2.7.2.686 [facility] [id number] [facility] PRIMARY & 365 Branch SPECIALTY CARE 2022-01-22 2022-01-22 Telephone [facility] 1.2.840.114 [id number] Univers 00:00:00 00:00:00 [facility] 350.1.13.10 it y of [place] 4.2.7.2.686 [facility] [id number] [facility] PRIMARY & 365 Branch SPECIALTY CARE 2021-10-11 2021-10-11 Emergency ROSA Morrow [facility] [id number] [facility] 11:16:00 12:58:00 Cherelle [id number] [facility] 2021-10-11 2021-10-11 Emergency EM [facility] [id number] [facility] 11:16:00 12:58:00 Cherelle 97 [facility] 2021-08-13 2021-08-13 Telephone [facility] 1.2.840.114 [id number] Univers 00:00:00 00:00:00 Janine [facility] 350.1.13.10 it y of [place]2.[place].2.686 [place] [id number] [facility] 198 [place] 2021-08-01 2021-08-01 Telephone [facility] 1.2.840.114 [id number] Univers 00:00:00 00:00:00 Janine PRIMARY 350.1.13.10 it y of [place] [id number] [facility] 198 [place] 2021-07-31 2021-07-31 Telephone [facility] 1.2.840.114 [id number] Univers 00:00:00 00:00:00 Janine PRIMARY 350.1.13.10 it y of [place] [id number] [facility] 198 [place] 2021-07-07 2021-07-07 Office [facility] 1.2.060.894 [id number] Univers 13:40:00 13:50:00 Visit Janine PRIMARY 350.1.13.10 it y of [place] 4.2.[place] [id number] [address] 2021-07-07 2021-07-07 Outpatient R MICHAEL [facility] [id number] Univers 13:40:00 13:40:00 JANINE cerda [facility] 2021-07-07 2021-07-07 Orders Doctor JANINE 1.2.840.114 [id number] Univers 00:00:00 00:00:00 Only Unassigned, JACOB 350.1.13.10 ity of [place] [facility] 4.2.7.2.686 Jeremiah as [id number] [facility] 009 Branch 2021-05-21 2021-05-21 Outpatient R TRUMAN [facility] [id number] Univers 09:00:00 09:00:00 MICHEL cerda [facility] 2021-05-21 2021-05-21 John [facility] 1.2.840.114 [id number] Univers 00:00:00 00:00:00 Management Amaris PRIMARY 350.1.13.10 ity of C[place] 4.2.[place] [id number] [place] dical 178 Branch 2021-05-13 2021-05-13 Case [facility] 1.2.840.114 [id number] Univers 00:00:00 00:00:00 Management Amaris PRIMARY 350.1.13.10 ity of [place] 4.2.[place] [id number] [place] dical 178 Branch 2021-05-06 2021-05-[address] [facility] 1.2.840.114 [id number] Univers 00:00:00 00:00:00 Management Kate E PRIMARY 350.1.13.10 ity of [place] 4.2.[place].2.[place] [id number] [place] dical 178 Branch 2021-04-30 2021-04-30 [facility] [id number] Univers 08:15:00 09:05:27 MICHEL ity of [facility] 2021-04-30 2021-04-[address] [facility] 1.2.84 0.114 [id number] Univers 08:10:26 09:05:27 Visit Michel Laughlin 350.1.13.10 ity of C[place] 4.2.[place] [id number] [place] dical 178 [place] 2021-04-30 2021-04-30 Outpatient R [facility] [id number] Univers 08:15:00 08:15:00 ity of [facility] 2021-04-24 2021-04-24 Telephone [facility] 1.2.467.074 [id number] Univers 00:00:00 00:00:00 Amaris PRIMARY 350.1.13.10 it y of [place] 4.2.[place] [id number] [place] dical 178 Branch 2021-04-17 2021-04-[address] [facility] 1.2.840.114 [id number] Univers 13:36:55 14:18:27 Visit Michel Laughlin PRIMARY 350.1.13.10 ity of C[place] 4.2.[place] [id number] [place] dical 178 Branch 2021-04-10 2021-04-[address] [facility] 1.2.840.114 [id number] Univers 13:30:25 14:19:43 Visit Michel Laughlin PRIMARY 350.1.13.10 ity of [place] 4.2.[place] [id number] [place] dical 178 Branch 2021-04-02 2021-04-[address] [facility] 1.2.840.114 [id number] Univers 14:39:57 15:54:28 Visit Michel Laughlin PRIMARY 350.1.13.10 ity of C[place] 4.2.[place].2.[place] [id number] [place] dical 178 Branch 2021-04-02 2021-04-02 [facility] [id number] Univers 14:45:00 14:45:00 MICHEL [facility] 2021-03-31 2021-03-31 [facility] 1.2.840.114 [id number] Univers 13:41:34 23:59:00 Encounter Janine PRIMARY 350.1.13.10 ity of [place] 4.2.[place].2.[place] [id number] [place] dical 807 Branch 2021-03-31 2021-03-31 [facility] 1.2.561.774 [id number] Univers 13:20:51 15:03:27 Visit Janine PRIMARY 350.1.13.10 it y of [place] 4.2.[place] [id number] [place] dical 198 Branch 2021-03-31 2021-03-31 Outpatient R [facility] [id number] Univers 14:00:00 14:00:00 JANINE cerda [facility] 2021-03-31 2021-03-31 Outpatient [facility] [id number] Univers 13:30:00 13:30:00 JANINE cerda [facility] 2021-03-31 2021-03-31 Outpatient R VANESSACECILIO, [facility] [id number] Univers 13:30:00 13:30:00 JANINE cerda [facility] 2021-02-24 2021-02-24 [facility] 1.2.840.114 [id number] Univers 13:31:30 23:59:00 Encounter Janine PRIMARY 350.1.13.10 ity of C[place] 4.2.[place] [id number] [place] dical 807 [place] 2021-02-24 2021-02-24 Office [facility] 1.2.912.502 [id number] Univers 13:17:21 14:07:52 Visit Janine [place] 350.1.13.10 it y of [place] 4.2.7.2.[place] [id number] [place] dical 198 [place] 2021-02-24 2021-02-24 Outpatient R MICHAEL, [facility] [id number] Univers 13:45:00 13:45:00 JANINE cerda [facility] 2021-02-24 2021-02-24 Outpatient [facility] [id number] Univers 13:20:00 13:20:00 JANINE cerda [facility] 2021-01-24 2021-01-24 Orders Doctor JANINE 1.2.840.114 [id number] Univers 00:00:00 00:00:00 Only Unassigned, JACOB 350.1.13.10 ity of [place] [facility] 4.2.7.2.686 Jeremiah as [id number] [address] 2021-01-17 2021-01-17 Telephone [facility] 1.2.840.114 [id number] Univers 00:00:00 00:00:00 Janine PRIMARY 350.1.13.10 it y of [place] 4.2.7.2.[place] [id number] [place] dical 198 [place] 2021-01-15 2021-01-15 [facility] 1.2.840.114 [id number] Univers 14:40:00 23:59:00 Encounter Janine SPECIALTY 350.1.13.10 it[place] of [place].2.[place] C[place] AT [id number] Tx keerthi MAURO 809 [facility] 2021-01-15 2021-01-15 Office [facility] 1.2.552.555 [id number] Univers 14:30:04 16:08:36 Visit Janine SPECIALTY 350.1.13.10 ity of [place] 4.2.7.2.[place] CENTER AT [id number] Tx keerthi MAURO 198 [facility] 2021-01-15 2021-01-15 Outpatient R MICHAEL [facility] [id number] Univers 14:40:00 14:40:00 JANINE [facility] 2021-01-07 2021-01-08 Emergency Julissa, [place] 1.2.671.507 [id number] Univers 20:07:00 03:12:00 [facility] 350.1.13.10 ity of 4.2.7.2.[address] [facility] s [id number] [facility] 014 Branch 2020-12-30 2020-12-[address] [facility] 1.2.840.114 [id number] Univers 13:43:01 17:00:51 Visit Michel Laughlin 350.1.13.10 ity of CARE 4.2.7.2.686 [facility] [id number] [place] keerthi 178 [place] 2020-12-30 2020-12-30 Outpatient Nicola LAUGHLIN [facility] [id number] Univers 13:45:00 13:45:00 MICHEL cerda [facility] 2020-12-30 2020-12-[address] [facility] 1.2.840.114 [id number] Univers 00:00:00 00:00:00 [facility] 350.1.13.10 [place] of [place] 4.2.7.2.686 [place] [facility] [phone] [facility] Primary & 365 Branch Specialty Care 2020-12-27 2020-12-27 Campground Attendant Lab, [facility] 1.2.840.11 [id number] Univers 14:04:30 14:19:30 Visit Gloria [facility] 350.1.13.10 ity of [place] 4.2.7.2.686 [facility] [id number] [facility] Primary & 357 Branch Specialty Care 2020-12-27 2020-12-27 Office [facility] 1.2.840.114 [id number] Univers 13:24:42 13:54:42 Visit [facility] 350.1.13.10 it y of [place] 4.2.7.2.686 [facility] [id number] [facility] Primary & 365 Branch Specialty Care 2020-12-27 2020-12-27 Outpatient R GLORIA [facility] [id number] Univers 13:30:00 13:30:00 [facility] ity [facility] 2020-12-27 2020-12-27 Telephone [facility] 1.2.840.114 [id number] Univers 00:00:00 00:00:00 Janine SPECIALTY 350.1.13.10 ity of CARE 4.2.7.2.[address] [facility] s CENTER AT [id number] Tx keerthi MAURO [address] [place] [address] 2020-12-20 2020-12-20 Telephone [facility] 1.2.840.114 [id number] Univers 00:00:00 00:00:00 Janine SPECIALTY 350.1.13.10 ity of CARE 4.2.7.2.686 [facility] AT [id number] Tx keerthi MAURO [address] [place] [address] 2020-12-19 2020-12-19 [facility] 1.2.840.114 [id number] Univers 00:00:00 00:00:00 Janine SPECIALTY 350.1.13.10 ity of [place] 4.2.7.2.[place] AT [id number] Tx keerthi MAURO [address] [place] [address] 2020-12-18 2020-12-18 Office [facility] 1.2.877.712 [id number] Univers 15:55:56 17:12:09 Visit Janine SPECIALTY 350.1.13.10 ity of C[place] 4.2.7.2.686 [place] C[place] AT [id number] Tx keerthi Donnelly [facility] 2020-12-18 2020-12-18 Outpatient [facility], [facility] [id number] Univers 16:10:00 16:10:00 JANINE cerda [facility] 2020-12-16 2020-12-16 Emergency Mauro, [place] 1.2.601.144 [id number] Univers 15:50:00 19:43:00 Corbin [facility] 350.1.13.10 ity [place].7.2.686 [place] [id number] [address] 2020-12-11 2020-12-11 Telephone [facility] 1.2.840.114 [id number] Univers 00:00:00 00:00:00 Janine SPECIALTY 350.1.13.10 ity of [place] 4.2.7.2.[place] C[place] AT [id number] Tx keerthi MAURO [address] [place] [address] 2020-12-04 2020-12-04 Outpatient R [facility], [facility] [id number] [facility] 16:20:00 16:20:00 JANINE [facility] 2020-11-28 2020-11-28 [facility] 1.2.840.114 [id number] Univers 00:00:00 00:00:00 Janine PRIMARY 350.1.13.10 it y of C[place] 4.2.7.2.686 [place] [facility] [id number] T[place] lucita[address] 2020-11-27 2020-11-27 [facility] 1.2.798.582 [id number] Univers 00:00:00 00:00:00 Secure Msg Angeline Borges SPECIALTY 350.1.13.10 ity of C[place] 4.2.7.2.686 [place] CENTER AT [id number] Tx keerthi MAURO [address] [place] [address] 2020-11-05 2020-11-05 Telephone [facility] 1.2.840.114 [id number] Univers 00:00:00 00:00:00 Janine PRIMARY 350.1.13.10 it y of [place] 4.2.7.2.[place] [id number] Tx dicmn [address] [place] 2020-11-04 2020-11-04 [facility] 1.2.840.114 [id number] Univers 13:00:14 23:59:00 Encounter Janine PRIMARY 350.1.13.10 it[place] of [place].2.7.[place] [id number] [facility] 807 [place] 2020-11-04 2020-11-04 Office [facility] 1.2.746.161 [id number] [facility] 12:42:49 14:23:19 Visit Janine PRIMARY 350.1.13.10 it y of C[place] 4.2.7.2.[place] [id number] [facility] 198 [place] 2020-11-04 2020-11-04 Outpatient R [facility] [id number] Univers 13:15:00 13:15:00 JANINE [facility] 2020-11-04 2020-11-04 Outpatient [facility] [id number] Univers 13:00:00 13:00:00 JANINE antione [facility] 2020-11-04 2020-11-04 [facility] 1.2.840.114 [id number] Univers 00:00:00 00:00:00 Janine PRIMARY 350.1.13.10 it y of C[place] 4.2.[place].2.[place] [id number] [facility] [address] [place] 2020-10-29 2020-10-29 Telephone [facility] 1.2.840.114 [id number] Univers 00:00:00 00:00:00 Janine PRIMARY 350.1.13.10 it y of C[place] 4.2.7.2.[place] [id number] [facility] 198 [place] 2020-10-25 2020-10-25 [facility] 1.2.840.114 [id number] Univers 07:22:00 16:08:00 Encounter Janine Health 350.1.13.10 ity of [place] 4[place]2.[place].2.[place] [facility] [id number] [facility] 049 [facility] 2020-10-25 2020-10-[address] [facility] 1.2.710.418 [id number] Univers 08:56:00 11:55:00 Janine SPECIALTY 350.1.13.10 ity of C[place] 4.2.7.2.686 [place] CENTER AT [id number] Tx lucitavictoria MAURO 020 [facility] 2020-10-25 2020-10-25 Outpatient R MICHAEL, [facility] SOR [id number] Univers 08:58:00 08:58:00 JANINE cerda [facility] 2020-10-25 2020-10-25 Orders Doctor JANINE 1.2.840.114 [id number] Univers 00:00:00 00:00:00 Only Unassigned, JACOB 350.1.13.10 ity of [place] [facility] 4.2.7.2.686 Jeremiah as [phone] [facility] 009 [place] 2020-10-24 2020-10-24 Laboratory Only, [facility] Test [facility] 1.2.840. 114 [id number] Univers 15:04:09 15:19:09 Only Janine Rodriguez 350.1.13.10 ity of CARE 4.2.7.2.686 [place] CENTER AT [id number] Tx keerthi [place] 353 [facility] 2020-10-24 2020-10-24 Outpatient R MICHAEL, [facility] [id number] Univers 14:45:00 14:45:00 JANINE cerda [facility] 2020-10-21 2020-10-[address] [facility] 1.2.880.580 [id number] Univers 00:00:00 00:00:00 (Out) Janine [place] 350.1.13.10 it y of C[place] 4.2.7.2.686 [place] [id number] Tx lucitamn [address] [place] 2020-10-21 2020-10-[address] [facility] 1.2.546.592 [id number] Univers 00:00:00 00:00:00 Secure Msg Janine PRIMARY 350.1.13.10 ity of C[place] 4.2.7.2.[place] [id number] Tx keerthi [address] [place] 2020-10-11 2020-10-11 Tele[address] Failscce, [facility] 1.2.840.114 [id number] Univers 00:00:00 00:00:00 Janine SPECIALTY 350.1.13.10 ity of C[place] 4.2.7.2.686 [place] CENTER AT [id number] Tx keerthi Donnelly [facility] 2020-10-07 2020-10-07 Outpatient R FAILLACE, [facility] [id number] Univers 10:50:00 10:50:00 [facility] 2020-10-07 2020-10-07 Outpatient R FAILLACE, [facility] [id number] Univers 10:50:00 10:50:00 [facility] 2020-10-04 2020-10-04 Telephone [facility], [facility] 1.2.840.114 [id number] Univers 00:00:00 00:00:00 Janine SPECIALTY 350.1.13.10 ity of C[place] 4.2.7.2.686 [place] C[place] AT [id number] Tx keerthi MAURO [address] [place] [address] 2020-09-23 2020-09-23 Laboratory Only, Pcp Test [facility] 1.2.840. 114 [id number] Univers 13:50:07 14:05:07 Only Michael, Janine PRIMARY 350.1.13.10 ity of C[place] 4.2.7.2.[place] [id number] Tx keerthi [address] [place] [address] 2020-09-23 2020-09-23 Outpatient R FAILLACE, [facility] [id number] Univers 14:00:00 14:00:00 JANINE [facility] 2020-09-17 2020-09-17 Emergency TRAU[place] 1.2.520.902 [id number] Univers 07:11:00 07:30:00 CENTER 350.1.13.10 [place] [id number] [address] 2020-09-17 2020-09-17 Emergency TRAU[place] 1.2.559.077 [id number] 07:11:00 07:30:00 CENTER 350.1.13.10 4.2.7.2.686 [id number] 014 2020-08-09 2020-08-09 [facility] 1.2.840.114 [id number] Univers 00:00:00 00:00:00 Janine PRIMARY 350.1.13.10 it y of C[place] 4.2.7.2.[place] [id number] [place]x dical [address] [place] 2020-08-09 2020-08-09 [facility] 1.2.840.114 [id number] 00:00:00 00:00:00 Janine PRIMARY 350.1.13.10 CARE 4.2.7.2.686 PAVILLION [id number] 198 2020-08-05 2020-08-05 Outpatient [facility] [id number] Univers 13:00:11 23:59:00 JANINE [facility] 2020-08-05 2020-08-05 [facility] 1.2.840.114 [id number] Univers 13:00:00 23:59:00 Encounter Janine PRIMARY 350.1.13.10 ity of C[place] 4.2.7.2.686 [place] [id number] [place] dical 807 [place] 2020-08-05 2020-08-05 [facility] 1.2.840.114 [id number] 13:00:00 23:59:00 Encounter Janine PRIMARY 350.1.13.10 CARE 4.2.7.2.686 PAVILLION [id number] 807 2020-08-05 2020-08-05 Outpatient Nicola LAUGHLIN [facility] [id number] Univers 15:00:00 15:00:00 MICHEL [facility] 2020-08-05 2020-08-05 [facility] [id number] Univers 13:20:00 13:20:00 JANINE [facility] 2020-08-05 2020-08-05 Office [facility] [id number] Univers 12:56:00 13:06:00 Visit Janine PRIMARY [id number] it [place] [id number] [place] [address] [place] 2020-08-05 2020-08-05 Office [facility] [id number] 12:56:00 13:06:00 Visit Janine PRIMARY [id number] CARE 4.2.7.2.686 PAVILLION [id number] [facility] 2020-08-05 2020-08-05 [place] [facility] [place] [id number] Univers 00:00:00 00:00:00 JANINE ity [facility] 2020-08-04 2020-08-[address] [facility] [id number] Univers 00:00:00 00:00:00 Nick PRIMARY [id number] [id number] [id number] [place] [address] [place] 2020-08-01 2020-08-01 Emergency Vasut, TRAUMA [id number] Univers 07:52:00 13:28:00 [facility] [id number] [id number] [id number] [facility] [place] [address] [place] 2020-07-24 2020-07-[address] [facility] 1.2.84 0.114 [id number] Univers 14:39:10 15:24:10 Visit Michel Laughlin A PRIMARY 350.1.13.10 [id number] [place] [address] 2020-07-24 2020-07-24 Outpatient R [facility] [id number] Univers 15:00:00 15:00:00 ity [facility] 2020-07-08 2020-07-[address] [facility] 1.2.84 0.114 [id number] Univers 12:53:01 13:38:01 Visit Michel Laughlin PRIMARY 350.1.13.10 [place] [id number] [place] [address] 2020-07-08 2020-07-08 Outpatient [facility] [id number] Univers 13:00:00 13:00:00 MICHEL ity [facility] 2020-06-26 2020-06-26 [facility] 1.2.840.114 [id number] Univers 00:00:00 00:00:00 Management Kate Simon PRIMARY 350.1.13.10 [place] [id number] [place] [address] [place] 2020-06-19 2020-06-19 [address] Kate Perea Alfred [facility] 1.2.84 0.114 [id number] Univers 13:54:01 14:39:01 Visit Michel Laughlin PRIMARY 350.1.13.10 [place] [id number] [place] dical [address] 2020-06-12 2020-06-12 Outpatient R [facility] [id number] Univers 13:45:00 13:45:00 ity [facility] 2020-06-11 2020-06-[address] [facility] 1.2.840.114 [id number] Univers 14:27:57 15:12:57 Visit Michel Laughlin PRIMARY 350.1.13.10 [place] [id number] [place] dical [address] 2020-06-06 2020-06-[address] [facility] 1.2.840.114 [id number] Univers 15:29:18 16:14:18 Visit Michel Laughlin PRIMARY 350.1.13.10 [place] [id number] [place] dical [address] 2020-05-29 2020-05-[address] [facility] 1.2.840.114 [id number] Univers 13:59:22 14:44:22 Visit Laughlin Michel A PRIMARY 350.1.13.10 [place] [id number] [place] [address] [place] 2020-05-29 2020-05-29 Outpatient R [facility] [id number] Univers 14:00:00 14:00:00 ity [facility] 2020-05-13 2020-05-13 [facility] 1.2.840.114 [id number] Univers 09:02:44 23:59:00 Encounter Janine PRIMARY 350.1.13.10 [place] [id number] [place] dical [address] [place] 2020-05-13 2020-05-13 Ancillary Kate Perea Alfred [facility] 1.2.84 0.114 [id number] Univers 11:07:13 11:52:13 Visit Truman Michel Beverley PRIMARY 350.1.13.10 it[place] [id number] [place] dicmn [address] [place] 2020-05-13 2020-05-13 Outpatient [facility] [id number] Univers 11:30:00 11:30:00 MICHEL [facility] 2020-05-13 2020-05-13 Outpatient [place] [facility] [id number] Univers 10:00:00 10:00:00 JANINE [facility] 2020-05-13 2020-05-13 [facility] 1.2.803.962 [id number] Univers 08:59:24 09:19:24 Visit Janine PRIMARY 350.1.13.10 it y [place] [id number] [place] dicmn [address] [place] 2020-05-13 2020-05-13 Outpatient R [facility] [id number] Univers 00:00:00 00:00:00 JANINE [facility] 2020-05-12 2020-05-12 [facility] 1.2.123.594 [id number] Univers 00:00:00 00:00:00 Christopher PRIMARY 350.1.13.10 ity of CARE 4.2.7.2.686 [place] [facility] [id number] Tx dical [address] 2020-05-07 2020-05-07 Orders Doctor JANINE 1.2.840.114 [id number] Univers 00:00:00 00:00:00 Only Unassigned, JACOB 350.1.13.10 ity of [place] [facility] 4.2.7.2.686 Jeremiah as [id number] [facility] bozena 009 Branch Results Test Description Test Time Test Comments Results Result [facility] e Comments - XR FOOT 3 + V LT 2021-10-11 12:05:00 [facility] 2000 Sex: M FAX: Cherelle Morrow MD [phone] [place]: St: REG Name: ANABELLVALENCIA [facility] : 2000 Age/S: 21/M [address] [facility] Unit #: [id number] Loc: [place], [place]: [place] [address] Acct: [id number] Dis Date: Status: REG ER PHONE #: [phone] Exam Date: 10/11/20211201 FAX #: [phone] Reason: pain, catfish stinger medial forefoot EXAMS: CPT CODE: [id number] XR FOOT 3 + [place] [address] B2 Exam: - XR FOOT 3 + V LT DATE:10/11/2021 11:32 AM INDICATION:pain, catfish stinger medial forefoot COMPARISON:None DISCUSSION: No acute fracture or dislocation. No significant soft tissue abnormality. No radiopaque foreign body. IMPRESSION: No acute osseous abnormality. at 1205 Reported and signed by: ERICH MAXWELL MD CC: Cherelle Morrow MD Technologist: URVASHI SPENCER; Linnette Drummond Trnlard Date/Time/By: 10/11/2021 (6585) : By: Kristina PAGE 1 Signed Report FAX: Cherelle Morrow MD [phone] [place]: St: REG Name: VALENCIA HUNG [facility] : 2000 Age/S: 21/M [address] [facility] Unit #: [id number] Loc: [place], [place]: [place] [address] Acct: [id number] Dis Date: Status: REG ER PHONE #: [phone] Exam Date: 10/11/20211201 FAX #: [phone] Reason: pain, catfish stinger medial forefoot EXAMS: CPT CODE: [id number] XR FOOT 3 + V LT 136[address] (Continued) Orig Print D/T: S: 10/11/2021 (4531) PAGE 2 Signed Report - ABDOMEN [facility] 2020-09-21 15:45:00 [facility] : 2000 Sex: M FAX: Jamar Beck DO [phone] [place]: St: [facility] FAX: Waylon Melo [phone] Name: VALENCIA HUNG [facility] : 2000 Age/S: 20/M [address] [facility] Unit #: [id number] Loc: [address] Phys: Waylon Holley [employer] [address] Acct: [id number] Dis Date: Status: REG ER PHONE #: [phone] Exam Date: 09/21/2020 1602 FAX #: [phone] Reason: RUQ pain EXAMS: CPT CODE: [id number] ABDOMEN LTD 64266 C3 TIME OF STUDY: 09/21/2020 1:49 PM [...] cholecystitis. 2. Hepatomegaly with hepatic steatosis. at 1544 Reported and signed by: Enrike Honeycutt M.D. CC: Jamar Beck DO; Waylon Holley NP Technologist: ARMANDO YEE Trnlard Date/Time/By: 09/21/2020 (9218) : By: [email or web address] PAGE 1 Signed Report FAX: Jamar Beck DO [phone] [place]: St: REG FAX: Waylon Melo [phone] Name: VALENCIA HUNG [facility] : 2000 Age/S: 20/M [address] [facility] Unit #: [id number] Loc: [address] Phys: Waylon Holley [employer] [address] Acct: [id number] Dis Date: Status: REG ER PHONE #: [phone] Exam Date: 09/21/2020 1602 FAX #: [phone] Reason: RUQ pain EXAMS: CPT CODE: [id number] US ABDOMEN LTD 34792 (Continued) Orig Print D/T: S: 09/21/2020 (4412) PAGE 2 Signed Report COMPREHENSIVE METABOLIC PANEL [...] = ALKP) 97 Units/L 50.0-136 .0 N [id number] 13:20:00 Test Item Value Reference Range Interpretation Comments LIPASE (test code = LIP) 79 Units/L 65.0-230.0 N [id number] 13:20:00 Test Item Value Reference Range Interpretation Comments TROPONIN-I (test <0.02 NG/ML 0.00-0.06 N REFERENCE R ARNOLD code = TROPI) TROPONIN I HEA LTHY INDIVIDUALS: <0 .06 ng/mL R/O ISCHE SUNDEEP: 0.07 - 0.60 ng/ mL CUT-OFF RANGE F OR AMI: 0.60 - 1.5 ng/m L - CT ABD PELVIS W/O [id number] 13:13:00 [facility] : 2000 Sex: M FAX: Jamar Beck DO [phone] [place]: St: REG FAX: Waylon Melo [phone] Name: [facility] 2000 Age/S: 20/M [address] [facility] Unit: [id number] Loc: [address] Phys: Waylon Holley [employer] [address] Acct: [id number] Dis Date: Status: REG ER PHONE #: [phone] Exam Date: 09/21/2020 [facility]4 FAX #: [phone] Reason: abd pain EXAMS: CPT CODE: [id number] CT ABD PELVIS W/O CONT 20568 C3 TIME OF STUDY: 09/21/2020 12:41 PM [...] adrenal glands and spleen all have normal appearance.There is no mesenteric or retroperitoneal adenopathy. The bowel loops are nondilated. A normal appendix is visualized. There is no free fluid or free air. The osseous structures are age- appropriate. CTPelvis: The ureters and bladder are grossly normal. There is no free air, free fluid, loculated collection or adenopathy in the pelvis. The osseous and soft tissue structures are age appropriate. IMPRESSION: 1. No acute abnormalities in the abdomen or pelvis. Normal appendix. No obstructive ureteral calculi and no hydronephrosis seen. 2. Hepatic steatosis. PAGE 1 Signed Report (CONTINUED) FAX: Jamar Beck DO [phone] [place]: St: [facility] FAX: Waylon Melo [phone] Name: VALENCIA HUNG [facility] : 2000 Age/S: 20/M [address] [facility] Unit: [id number] Loc: [address] [place], [place] Phys: Waylon Holley [employer] [address] Acct: [id number] Dis Date: Status: REG ER PHONE #: [phone] Date: 09/21/2020 1304 FAX #: [phone] Reason: abd pain EXAMS: CPT CODE: [id number] CT ABD PELVIS W/O CONT 56426 (Continued) at 1313 Reported and signed by: Enrike Honeycutt M.D. CC: Jamar Beck DO; Waylon Holley NP Technologist:NINA CANSECO Trnscrd Dt/Tm: 09/21/2020 (1313) [email or web address] Orig Print D/T: S: 09/21/2020 (1316 PAGE 2 Signed ReportCOMPREHENSIVE METABOLIC [id number] 13:11:00 Test Item Value Reference Range Interpretation [...] TOTAL (test Units/L 50.0-136.0 code = ALKP) [id number] 13:11:00 Test Item Value Reference Range Interpretation Comments LIPASE (test code = LIP) Units/L 65.0-230.0 [id number] 13:11:00 Test Item Value Reference Range Interpretation Comments TROPONIN-I (test code = TROPI) NG/ML 0.00-0.06 - XR CHEST 1 [id number] 13:08:00 [facility] : 2000 Sex: M FAX: Jamar Beck DO [phone] [place]: St: REG FAX: Antione Waylon Holley [phone] Name: VALENCIA HUNG [facility] : 2000 Age/S: 20/M [address] [facility] Unit #: [id number] Loc: [address] [place], [place] Phys: Waylon Holley [employer] [address] Acct: [id number] Dis Date: Status: REG ER PHONE #: [phone] Exam Date: 09/21/2020 1301 FAX #: [phone] Reason: cp EXAMS: CPT CODE: [id number] XR CHEST 1 V 91494 EXAM: - XR CHEST 1 V Location code:C3 HISTORY: Chest pain COMPARISON: None available time ofinterpretation. FINDINGS: Frontal view of the chest is submitted. Heart size within normal limits. Low lung volumes mild bronchovascular crowding. The lungs are clear of focal consolidation. No effusion or evidence of pneumothorax.. No acute osseous pathology. IMPRESSION 1. Low lung volumes mild bronchovascular crowding. Otherwise, no radiographic evidence of acute cardiopulmonary process. Electro nically Signed by NELY MEYER M.D. on 09/21/2020 at 7258 Reported and signed by:NELY MEYER M.D. CC: Jamar Beck DO; Waylon Holley NP Technologist: KITTY MOORE Trnscrd Date/Time/By: 09/21/2020 (7154) : By: [email or web address] PAGE 1 Signed Report FAX: Dominick Beckfazalalfred GEORGE [phone] [place]: St: REG FAX: Waylon Melo [phone] Name: VALENCIA HUNG [facility] : 2000 Age/S: 20/M [address] [facility] [employer] Unit #: [id number] Loc: [address] Phys: Waylon Holley [employer] [address] Acct: [id number] Dis Date: Status: REG ER PHONE #: [phone] Exam Date: 09/21/2020 1301 FAX #: [phone] Reason: cp EXAMS: CPT CODE: [id number] XR CHEST 1 V 01616 (Continued) Orig Print D/T: S: 09/21/2020 (1311) PAGE 2 Signed ReportDRUGS OF ABUSE SCREEN [id number] 13:07:00 Test Item Value Reference Interpretation Comments [...] = [place]) concentrati on: 300 ng/mL URINALYSIS [id number] 13:05:00 Test Item Value Reference Range Interpretation [...] (test code = TRACE NONE BACU) URINALYSIS [id number] 13:04:00 Test Item Value Reference Range Interpretation [...] (test code = NONE BACU) CBC W/AUTO [id number] 12:58:00 Test Item Value Reference Range Interpretation [...] Notes Date/Time Note Provider Source 2021-10-11 12:30:00-00:00 [facility] ([facility]) EMERGENCY PROVIDER REPORT REPORT#:[id number] REPORT STATUS: Signed DATE:10/11/21 TIME: 1230 PATIENT: VALENCIA HUNG UNIT #: [id number] ROOM/BED: AGE: 21 SEX: M PCP PHYS: No Primary or Family Ph ysician SERVICE AUTHOR: Cherelle Morrow MD * ALL edits or amendments must be made on the [employer] document * HPI-Foot Prob/Inj General Initial Greet [...] his own f oot with the pectoral gudelia. Gudelia appears to have come out completely. [...] 103 10/11 1117 O2 Delivery Room air 04/09 1117 Temp 36.7 04/09 111 Pulse 98 10/11 1117 Resp 19 10/11 1116 Last Documented: Result Date Time Pulse Ox 98 10/11 1116 B/P 139/85 10/11 1116 B/P Mean 103 10/11 111 O2 Delivery Room air 10/11 1116 Temp 36.7 10/11 1116 Pulse 98 10/11 1117 Resp 19 10/11 1116 Review of Vital Signs Reviewed Focused PE [...] XR FOOT 3 + V LT 10/11 1201 Report Impression - Status: SIGNED Entered: 10/11/2021 [...] 100 MG X1ED STA 10/11 1231 DC 10/11 Monohydrate PO 10/11 1232 1251 Serums, Toxoids, And Vaccines Sig/Reese Start time Last Medication Dose Route Stop Time Status Admin Diphtheria/Tetanus/ 0.5 ML X1ED STA 10/11 1230 DC 10/11 Acell Pertussis IM 10/11 1231 1252 Patient Discharge Departure Vital Signs/Condition Vital Signs First Documented: Result Date Time Pulse Ox 98 10/11 1117 B/P 139/85 10/11 1117 B/P Mean 103 / 1117 O2 Delivery Room air 10/11 1117 Temp 36.7 04 1117 Pulse 98 04 1117 Resp 19 10/11 1117 Last Documented: Result Date Time Pulse Ox 98 10/11 1117 B/P 139/85 04/ 1117 B/P Mean 103 /09 1117 O2 Delivery Room air 10/11 1117 [...] Referrals Referral: PRIMARY DOCTOR at 0841 RPT #:[id number] END OF REPORT 2020-09-21 19:13:00-00:00 [facility] ([facility]) EMERGENCY PROVIDER REPORT REPORT#:[id number] REPORT STATUS: Signed DATE:09/21/20 TIME: 1912 PATIENT: VALENCIA HUNG UNIT #: [id number] ROOM/BED: AGE: 20 SEX: M PCP PHYS: No Primary or Family Ph ysician SERVICE AUTHOR: Waylon Holley [employer] * ALL edits or amendments must be made on the [employer]/computer document * HPI-Abd Pain M Under 40 [...] PAIN Allergies Coded Allergies: No Known Allergies (01/21/14) Calculated Suicide Risk (nurs) No risk Review [...] Total Alk Phosphatase (50.0 - 136.0 Units/L) 9 7 Troponin I (0.00 - 0.06 NG/ML) <0.02 [...] (Auto) (23.0 - 38.0 %) 16.5 L Walsh % (Auto) (1.0 - 10.0 %) 5.4 Eos % (Auto) (1.0 - 5.0 %) 1.5 Baso % (Auto) (0.0 - 1.0 %) 0.5 Neut # (Auto) (2.4 - 6.3 K/mm3) 10.0 H Lymph # (Auto) (1.2 - 4.0 K/mm3) 2.2 Walsh # (Auto) (0.0 - 0.6 K/mm3) 0.7 [...] pH (5.0 - 9.0) 6.0 Ur Specific [place] (1.000 - 1.030) 1.020 Urine Protein (NEGATIVE [...] Silvia Honeycutt M.D. ULTRASOUND - US ABDOMEN LTD 09/21 1440 Report Impression - Status: SIGNED [...] and current condition do not suggest ac fernando appendicitis, bowel obstruction, incarcerated he rnia, testicular [...] will pursue further outpatient evaluation with the [facility] care physician or other designated or consulting [...] Ox 98 09/21 1132 B/P 160/108 09/21 113 B/P Mean 125 09/21 1132 O2 Delivery Room air 09/21 113 Temp 36.6 09/21 1132 Pulse 87 09/21 1132 Resp 17 09/21 1132 Last Documented: Result Date Time B/P 122/82 09/21 193 B/P Mean 95 09/21 1938 Pulse 70 09/21 1938 Resp 28 09/21 [...] symptoms should prompt an immediate return to [facility] or the closest emergency department or a call to 911. at 2135 RPT #:[id number] END OF REPORT 2020-09-21 19:13:00-00:00 [facility] ([facility]) EMERGENCY PROVIDER REPORT REPORT#:[id number] REPORT STATUS: Signed DATE:09/21/20 TIME: 1912 PATIENT: VALENCIA HUNG UNIT #: [id number] ROOM/BED: AGE: 20 SEX: M PCP PHYS: No Primary or Family Ph ysician SERVICE AUTHOR: Waylon Holley NP * ALL edits or amendments must be made on the [employer]/computer document * Waylon Holley 09/21/201912: HPI-Abd Pain [...] 1132 Pulse 87 09/21 1132 Resp 17 09/22 1131 Last Documented: Result Date Time B/P 122/82 [...] (Auto) (23.0 - 38.0 %) 16.5 L Walsh % (Auto) (1.0 - 10.0 %) 5.4 Eos % (Auto) (1.0 - 5.0 %) 1.5 Baso % (Auto) (0.0 - 1.0 %) 0.5 Neut # (Auto) (2.4 - 6.3 K/mm3) 10.0 H Lymph # (Auto) (1.2 - 4.0 K/mm3) 2.2 Walsh # (Auto) (0.0 - 0.6 K/mm3) 0.7 H Eos # (Auto) (0.0 - 0.7 K/MM3) 0.2 Baso # (Auto) (0.0 - 0.2 K/mm3) 0.1 Absolute Nucleated RBC (0.00 - 0.01 X10 3uL) 0 .00 Immature Gran % (0.0 - 0.4 %) [...] pH (5.0 - 9.0) 6.0 Ur Specific [place] (1.000 - 1.030) 1.020 Urine Protein (NEGATIVE [...] seen. 2. Hepatic steatosis. Impression By: Silvia Honeyuctt M.D. ULTRASOUND - US ABDOMEN [facility] 09/21 1440 Report Impression - Status: SIGNED [...] in particular, there is no [facility]. The history, exam, diagnostic testing, and current condition do not suggest ac fernando appendicitis, bowel obstruction, incarcerated he rnia, testicular [...] will pursue further outpatient evaluation with the [facility] physician or other designated or consulting [...] Pulse 70 09/21 1938 Resp 28 09/21 1937 Temp 36.6 09/21 [...] symptoms should prompt an immediate return to [facility] or the closest emergency department or a call to 911. Jamar Beck 09/28/20 0233: Patient Discharge Departure Supervising Physician Note Kelby Saw Pt Alone I have reviewed the PA/COSMETIC SALES's note and plan of car e. I was available for consultation as needed at al l times during the patient's visit in the emergency department. I agree with the clinical impression , plan and disposition. at 0259 Electronically Signed by Jamar Beck DO on at 2840 RPT #:[id number] END OF REPORT
--- NOTE | 2022-12-23 20:44 | RAD REPORT ---
EXAM DESCRIPTION: RAD - Hand Right 3 View - 12/23/2022 8:33 pm CLINICAL HISTORY: trauma, swelling COMPARISON: No comparisons TECHNIQUE: Right hand, 3 views. FINDINGS: Linear osseous density adjacent to the lateral base of fifth digit proximal phalanx. Its d onor site is not entirely clear. There is no dislocation or periosteal reaction noted. No foreign body or gas. Diffuse soft tissue swe lling about the proximal aspects of the medial fourth digit and dorsum of the hand. IMPRESSION: Linear osseous density adjacent to the lateral base of fifth digit, may represent a disp laced fracture fragment. Its donor site is not entirely cleared. Soft tissue swelling as above.
--- NOTE | 2022-12-23 21:15 | ER ---
Nurse's Notes [facility] Name: Fadi Riojas Age: 22 yrs Sex: Male : 2000 Arrival Date: 12/23/2022 Time: 18:31 Bed 11 Private MD: Diagnosis: Right fourth metacarpal fracture;Abrasion of the right hand Presentation: 12/23 19:39 Chief complaint: Patient states: I think I broke my right hand. I punched a wall kd3 yesterday and its swollen. Coronavirus screen: Vaccine status:. Coronavirus screen: Vaccine status:. Coronavirus screen: Vaccine status: Patient reports receiving the 2nd dose of the covid vaccine. Ebola Screen: No symptoms or risks identified at this time. Initial Sepsis Screen: Does the patient meet any 2 criteria? No. Patient's initial sepsis screen is negative. Does the patient have a suspected source of infection? No. Patient's initial sepsis screen is negative. Risk Assessment: Do you want to hurt yourself or someone else? Patient reports no desire to harm self or others. Onset of symptoms was December 23, 2022. 19:39 Method Of Arrival: Ambulatory kd3 19:39 Acuity: BRYNN 3 kd3 Triage Assessment: 19:42 General: Appears in no apparent distress. Behavior is calm, cooperative. Pain: kd3 Complains of pain in right hand. Musculoskeletal: Swelling present in right hand. Injury Description: Laceration sustained to dorsum of right hand. Historical: - PSHx: 19:42 right arm; kd3 - Immunization history:: Adult Immunizations up to date. - Social history:: Smoking status: Patient reports the use of cigarette tobacco products, smokes one-half pack cigarettes per day. Screenin:29 [facility] ED Fall Risk Assessment (Adult) History of falling in the last 3 months, lg3 including since admission No falls in past 3 months (0 pts). Abuse screen: Denies threats or abuse. Denies injuries from another. Nutritional screening: No deficits noted. Tuberculosis screening: No symptoms or risk factors identified. Assessment: 20:29 General: Appears in no apparent distress. comfortable, Behavior is calm, cooperative. lg3 Pain: Complains of pain in right hand. Neuro: No deficits noted. Gomez Agitation-Sedation Scale (RASS): 0 - Alert and Calm Level of Consciousness is awake, alert, obeys commands, Oriented to person, place, time, situation. Cardiovascular: No deficits noted. Denies chest pain, shortness of breath, Capillary refill < 3 seconds Clubbing of nail beds is absent JVD is absent Patient's skin is warm and dry. Respiratory: No deficits noted. Airway is patent Respiratory effort is even, unlabored, Respiratory pattern is regular, symmetrical. GI: No deficits noted. No signs and/or symptoms were reported involving the gastrointestinal system. Abdomen is round non-distended, obese. : No deficits noted. No signs and/or symptoms were reported regarding the genitourinary system. EENT: No deficits noted. No signs and/or symptoms were reported regarding the EENT system. Derm: No deficits noted. No signs and/or symptoms reported regarding the dermatologic system. Skin is intact, is healthy with good turgor, Skin is dry, Skin is normal. Musculoskeletal: Circulation, motion, and sensation intact. Range of motion: intact in all extremities, Swelling present in right hand. 21:48 Reassessment: Patient appears in no apparent distress at this time. No changes from 3 previously documented assessment. Patient and/or family updated on plan of care and expected duration. Pain level reassessed. Patient is alert, oriented x 3, equal unlabored respirations, skin warm/dry/pink. Vital Signs: 19:39 Pulse 109; Resp 19; Temp 99.1(O); Pulse Ox 99% ; Weight 158.76 kg; Height 6 ft. 3 in. ; kd3 19:42 BP 125 / 77; kd3 21:48 BP 127 / 84; Pulse 88; Resp 18 S; Pulse Ox 99% on R/A; lg3 19:39 Body Mass Index 43.75 (158.76 kg, 190.5 cm) 3 ED Course: 18:35 Patient arrived in ED. mr 18:39 Nahun Levi PA is PHCP. [facility] 18:39 Nick Acuña MD is Attending Physician. jmm 19:42 Triage completed. kd3 19:42 Arm band placed on left wrist. kd3 20:21 Liliana Saba, LAVERN is Primary Nurse. lg3 20:29 Patient has correct armband on for positive identification. Bed in low position. Call [facility] light in reach. Side rails up X 1. Client placed on continuous cardiac and pulse oximetry monitoring. NIBP monitoring applied. Door closed. Noise minimized. Warm blanket given. Family accompanied patient. 20:35 Hand Right 3 View XRAY In Process Unspecified. EDMS 21:04 Orthoglass splint: Ulnar gutter/Boxer splint applied on right forearm. ds4 21:42 Janak Harper MD is Referral Physician. [facility] 21:48 Assist provider with fracture care of right hand Circulation, motor and sensation is lg3 intact. Set up for procedure. Immobilized with preformed splint, Post immobilization, circulation, motor and sensation remain intact. Patient tolerated well. Patient did not have IV access during this emergency room visit. Administered Medications: 21:34 Drug: Doxycycline PO 100 mg Route: PO; lg3 21:48 Follow up: Response: No adverse reaction lg3 Medication: 21:48 VIS not applicable for this client. lg3 Outcome: 21:15 Discharge ordered by MD. [facility] 21:48 Discharged to home ambulatory. lg3 21:48 Condition: stable 21:48 Discharge instructions given to patient, Instructed on discharge instructions, follow up and referral plans. medication usage, Demonstrated understanding of instructions, follow-up care, medications, splint care, Prescriptions given X 1. 21:50 Patient left the ED. lg3 Signatures: Dispatcher [employer] EDMS Nahun Levi PA PA jmm Rivera, Mary mr BelloChaparro ds4 Liliana Saba, RN RN lg3 Yue Jang RN RN kd3
--- NOTE | 2022-12-23 21:16 | EDPHYS ---
Physician Documentation [facility] Name: Fadi Riojas Age: 22 yrs Sex: Male : 2000 Arrival Date: 12/23/2022 Time: 18:31 Bed 11 Private MD: ED Physician Nick Acuña HPI: 12/23 19:43 This 22 yrs old Male presents to ER via Ambulatory with complaints of Hand jmm Injury. 19:43 Onset: The symptoms/episode began/occurred acutely, yesterday. This is a 22 year old jmm male that presents to the ED with complaints of right hand swelling. Patient states he punched a wall last night while at work. Denies other injury. Patient is UTD on tetanus immunization. . Historical: - PSHx: 19:42 right arm; kd3 - Immunization history:: Adult Immunizations up to date. - Social history:: Smoking status: Patient reports the use of cigarette tobacco products, smokes one-half pack cigarettes per day. ROS: 19:43 Constitutional: Negative for fever, chills, and weight loss, Cardiovascular: Negative jmm for chest pain, palpitations, and edema, Respiratory: Negative for shortness of breath, cough, wheezing, and pleuritic chest pain. 19:43 MS/extremity: Positive for injury or acute deformity, pain. 19:43 All other systems are negative. Exam: 19:43 Constitutional: This is a well developed, well nourished patient who is awake, alert, jmm and in no acute distress. Head/Face: atraumatic. Eyes: EOMI, no conjunctival erythema appreciated ENT: Moist Mucus Membranes Neck: Trachea midline, Supple Chest/axilla: Normal chest wall appearance and motion. Cardiovascular: Regular rate and rhythm. No edema appreciated Respiratory: Normal respirations, no respiratory distress appreciated Abdomen/GI: Non distended Back: Normal ROM 19:43 Musculoskeletal/extremity: swelling noted to the right hand, compartmentes are soft, < 2 sec dist cap refill, FROM appreciated to the right hand. 19:43 Skin: abrasion noted to the right hand. 19:43 Neuro: Orientation: is normal, Mentation: is normal, Memory: is normal. 19:43 Psych: Behavior/mood is pleasant, cooperative. Vital Signs: 19:39 Pulse 109; Resp 19; Temp 99.1(O); Pulse Ox 99% ; Weight 158.76 kg; Height 6 ft. 3 in. ; kd3 19:42 BP 125 / 77; kd3 21:48 BP 127 / 84; Pulse 88; Resp 18 S; Pulse Ox 99% on R/A; lg3 19:39 Body Mass Index 43.75 (158.76 kg, 190.5 cm) kd3 Procedures: 19:43 Splinting: Splint applied to right hand using ulnar gutter. applied by nurse. Examined jmm by me, post splint application: neurovascular intact, 2+ distal pulses palpable, brisk capillary refill noted, Patient tolerated well. MDM: 19:43 Patient medically screened. jmm 23:55 Differential diagnosis: fracture. Data reviewed: vital signs, nurses notes, radiologic jmm studies, plain films. I considered the following discharge prescriptions or medication management in the emergency department. Counseling: I had a detailed discussion with the patient and/or guardian regarding: the historical points, exam findings, and any diagnostic results supporting the discharge/admit diagnosis, radiology results, the need for outpatient follow up, to return to the emergency department if symptoms worsen or persist or if there are any questions or concerns that arise at home. ED course: I discussed the patient with Dr. Harper whom will follow up with the patient tomorrow for reevaluation. . 12/23 19:44 Order name: Hand Right 3 View XRAY; Complete Time: 20:45 [facility] 12/23 20:51 Order name: Ulnar Gutter splint; Complete Time: 20:55 [facility] Administered Medications: 21:34 Drug: Doxycycline PO 100 mg Route: PO; lg3 21:48 Follow up: Response: No adverse reaction lg3 Disposition: 12/24 10:01 Co-signature as Attending Physician, Nick Acuña MD I reviewed the patient's care rt provided by the Advanced Practice Provider and agree with the diagnosis and treatment plan. Disposition Summary: 12/23/22 21:15 Discharge Ordered Location: Home [facility] Condition: Stable [facility] Diagnosis - Right fourth metacarpal fracture jmm - Abrasion of the right hand jm Followup: jmm - With: Private Physician - When: 2 - 3 days - Reason: Recheck today's complaints, Continuance of care, Re-evaluation by your physician Followup: jm - With: Janak Harper MD - When: 2 - 3 days - Reason: Recheck today's complaints, Continuance of care, Re-evaluation by your physician Discharge Instructions: - Discharge Summary Sheet jmm - Abrasion jmm - Metacarpal Fracture jmm Forms: - Work release form jmm - Medication Reconciliation Form jmm - Thank You Letter jmm - Antibiotic Education jmm - Prescription Opioid Use jmm Prescriptions: - Doxycycline Hyclate 100 mg Oral Tablet - take 1 tablet by ORAL route every 12 hours; 20 tablet; Refills: 0, Product jmm Selection Permitted Signatures: Dispatcher [employer] EDMS Nahun Levi PA PA jmm Gibson, Lacie, RN RN lg3 Yue Jang RN RN kd3 Nick Acuña MD MD rt Corrections: (The following items were deleted from the chart) 12/23 23:53 21:23 This 22 yrs old Male presents to ER via Ambulatory with complaints of jmm Hand Injury. jmm
[2022-12-23] MEDS ORDERED: DOXYCYCLINE 100 MG CAP PO ONE (21:32)
[2022-12-23 22:27] VITALS: TEMP 99.1; O2SAT 99
[2022-12-23 22:29] VITALS: BP 127/84
== END 2022-12-23 21:50 | disposition home or self-care (01) ==
LOC: ER 18:31
DX: S62.304A Unspecified fracture of fourth metacarpal bone, right hand, initial encounter for closed fracture (principal); F17.210 Nicotine dependence, cigarettes, uncomplicated

== ENCOUNTER 2022-12-29 11:17 | Emergency (ER) | payer BC ==
--- NOTE | 2022-12-29 11:32 | EDPHYS ---
Physician Documentation [facility] Name: Fadi Riojas Age: 22 yrs Sex: Male : 2000 Arrival Date: 12/29/2022 Time: 11:17 Bed Waiting Private MD: ED Physician Nick Acuña HPI: 12/29 11:27 This 22 yrs old Male presents to ER via Ambulatory with complaints of Work jmm Release. 11:27 Is a 22-year-old male with no known chronic medical conditions presents emerged [facility] department needing a work excuse. Patient had fractured his right hand approximately week ago and needed clearance to return to work.. ROS: 11:27 Constitutional: Negative for fever, chills, and weight loss, Cardiovascular: Negative jm for chest pain, palpitations, and edema, Respiratory: Negative for shortness of breath, cough, wheezing, and pleuritic chest pain. 11:27 MS/extremity: Positive for injury or acute deformity, pain. 11:27 All other systems are negative. Exam: 11:27 Constitutional: This is a well developed, well nourished patient who is awake, alert, jmm and in no acute distress. Head/Face: atraumatic. Eyes: EOMI, no conjunctival erythema appreciated ENT: Moist Mucus Membranes Neck: Trachea midline, Supple Chest/axilla: Normal chest wall appearance and motion. Cardiovascular: Regular rate and rhythm. No edema appreciated Respiratory: Normal respirations, no respiratory distress appreciated Abdomen/GI: Non distended Back: Normal ROM Skin: General appearance color normal 11:27 Musculoskeletal/extremity: Decreased swelling noted to the right hand no erythema appreciated, less than 2 seconds cap refill, compartments are soft, neurovascular intact. 11:27 Skin: Appearance: Color: normal in color. 11:27 Neuro: Orientation: is normal, Mentation: is normal, Memory: is normal. 11:27 Psych: Behavior/mood is pleasant, cooperative. Vital Signs: 11:38 BP 132 / 78; Pulse 76; Resp 16; Temp 98; Pulse Ox 100% on R/A; ss MDM: 11:27 Patient medically screened. [facility] 15:14 Differential diagnosis: Fracture. Data reviewed: vital signs. Counseling: I had a [facility] detailed discussion with the patient and/or guardian regarding: the historical points, exam findings, and any diagnostic results supporting the discharge/admit diagnosis, the need for outpatient follow up, to return to the emergency department if symptoms worsen or persist or if there are any questions or concerns that arise at home. Administered Medications: No medications were administered Disposition: 12/30 09:41 Co-signature as Attending Physician, Nick Acuña MD I reviewed the patient's care rt provided by the Advanced Practice Provider and agree with the diagnosis and treatment plan. Disposition Summary: 12/29/22 11:31 Discharge Ordered Location: Home [facility] Condition: Stable [facility] Diagnosis - Metacarpal Fracture [facility] Followup: [facility] - With: Private Physician - When: 2 - 3 days - Reason: Recheck today's complaints, Continuance of care, Re-evaluation by your physician Discharge Instructions: - Discharge Summary Sheet [facility] - Metacarpal Fracture [facility] - Form - Return To Work [facility] Forms: - Work release form [facility] - Medication Reconciliation Form [facility] - Thank You Letter [facility] - Antibiotic Education [facility] - Prescription Opioid Use [facility] - [email or web address] [facility] Signatures: Nahun Levi PA PA Nick Godinez MD MD rt
--- NOTE | 2022-12-29 11:40 | ER ---
Nurse's Notes [facility] Name: Fadi Riojas Age: 22 yrs Sex: Male : 2000 Arrival Date: 12/29/2022 Time: 11:17 Bed Waiting Private MD: Diagnosis: Metacarpal Fracture Presentation: 12/29 11:38 Chief complaint: Patient states: requesting work release. Pt was seen recently for hand ss fracture, but is unable to follow up with specialist. Coronavirus screen: Client denies travel out of the [place] in the last 14 days. Ebola Screen: Patient denies exposure to infectious person. Patient denies travel to an Ebola-affected area in the 21 days before illness onset. Initial Sepsis Screen: Does the patient meet any 2 criteria? No. Patient's initial sepsis screen is negative. Does the patient have a suspected source of infection? No. Patient's initial sepsis screen is negative. Risk Assessment: Do you want to hurt yourself or someone else? Patient reports no desire to harm self or others. Onset of symptoms was December 2022. 11:38 Method Of Arrival: Ambulatory 11:38 Acuity: BRYNN 4 ss Vital Signs: 11:38 BP 132 / 78; Pulse 76; Resp 16; Temp 98; Pulse Ox 100% on R/A; ss ED Course: 11:20 Patient arrived in ED. mr 11:20 Nahun Levi PA is PHCP. [facility] 11:20 Nick Acuña MD is Attending Physician. [facility] 11:38 Arm band placed on left wrist. 11:39 Triage completed. ss Administered Medications: No medications were administered Outcome: 11:31 Discharge ordered by . [facility] 11:40 Discharged to home ambulatory. 11:40 Condition: good 11:40 Discharge instructions given to patient, Instructed on discharge instructions, follow up and referral plans. Demonstrated understanding of instructions, follow-up care. 11:40 Patient left the ED. Signatures: Nahun Levi PA PA jmm Rivera, Mary OglesbyNatasha, RN RN ss
[2022-12-29 11:43] VITALS: BP 132/78; TEMP 98; O2SAT 100
--- OUTSIDE RECORDS SUMMARY | 2022-12-29 11:43 | XMS REPORT | Continuity of Care Document ---
:2000 Author Organization [facility] t Address [address] [place] [address] [place] [address] Care Team Providers Name Role Phone ROLANDO MOSCOSO Primary Care Physician Unavailable JANINE RODRIGUEZ Attending Clinician Unavailable ROLANDO MOSCOSO Attending Clinician Unavailable Campbell Castro Attending Clinician Cherelle Morrow Attending Clinician Unavailable Janine Rodriguez MD Attending Clinician Doctor Unassigned, [place] Attending Clinician Unavailable MICHEL LAUGHLIN Attending Clinician [...] Type Policy Number Effective Date Expiration Date S lars [facility] [id number] 2020 00:00:00 Problems Condition Condition Condition Status Onset Resolution Last Treating Co mments Source Name Details Category Date Date Treatment Clinician Date Morbid Morbid Disease Active Univers obesity obesity 4-23 [place] of [place] mass index 00 Me dical of of Branch 40.0-49.9 40.0-49.9 Attention Attention Disease Active Uni vers deficit deficit 06 [place] 00 Medical disorder disorder Branch (ADHD), (ADHD), predominan predominan tly tly inattentiv inattentiv e type e type Obesity Obesity Disease Active Univers 1- ity of 00:00: [place] [address] Medical Branch Essential Essential Disease Active Uni vers hypertensi hypertensi 07-10 it y of on on 00:00: [place] [address] Medical [place] Allergies, Adverse Reactions, Alerts Allergy Allergy Status Severity Reaction(s) Onset Inactive Treating Comm ents Source Name Type Date Date Clinician No Known DA Active U [facility]ie - [facility] NO KNOWN Drug Active Univers ALLERGIE Class ity of S [facility] Social History Social Habit Start Date Stop Date Quantity Comments Source Exposure to Not sure [facility] SARS-CoV-2 [place] Medical (event) Branch Alcohol intake 2021-01-15 2021-01-15 Current University of 00:00:00 00:00:00 non-drinker of [facility] alcohol (finding) Branch Tobacco use and 2013-11-14 2013-11-14 Smokeless tobacco Un iversity of exposure 00:00:00 00:00:00 non-[address] [facility] Sex Assigned At 2000 2000 Universit y of 00:00:00 00:00:[address] [facility] Smoking Status Start Date Stop Date Source Never smoked tobacco [facility] Medications Ordered Filled Start Stop Current Ordering Indication Dosage Frequency Signature Comments Components Source Medication Medication Date Date Medication? Clinician (SIG) Name Name ibuprofen 0 Yes [id number] 800mg Take 1 Univers 800 mg 7-07 tablet by ity of tablet 00:00: mouth [place] 00 every 6 Medical (six) Branch hours as needed for Pain (scale 1-3) for up to 30 doses. ibuprofen 2020-0 Yes [id number] 800mg Take 1 Univers 800 mg 7-07 tablet by ity of tablet 00:00: mouth [place] 00 every 6 Medical (six) Branch hours as needed for Pain (scale 1-3) for up to 30 doses. ibuprofen Yes [id number] 800mg Take 1 Univers 800 mg 7-07 tablet by ity of tablet 00:00: mouth [place] 00 every 6 Medical (six) Branch hours as needed for Pain (scale 1-3) for up to 30 doses. ibuprofen Yes [id number] 800mg Take 1 Univers 800 mg 7-07 tablet by ity of tablet 00:00: mouth [place] 00 every 6 Medical (six) Branch hours as needed for Pain (scale 1-3) for up to 30 doses. ibuprofen 0 Yes [id number] 800mg Take 1 Univers 800 mg 7-07 tablet by ity of tablet 00:00: mouth [place] 00 every 6 Medical (six) Branch hours as needed for Pain (scale 1-3) for up to 30 doses. ibuprofen 0 Yes [id number] 800mg Take 1 Univers 800 mg 7-07 tablet by ity of tablet 00:00: mouth [place] 00 every 6 Medical (six) Branch hours as needed for Pain (scale 1-3) for up to 30 doses. Vital Signs Vital Name Observation Time Observation Value Comments Source Body temperature 2021-07-07 20:13:00 36.06 Annika Univ [facility] Body height 2021-07-07 20:13:00 190.5 cm [facility] Body weight 2021-07-07 20:13:00 171.46 kg [facility] BMI 2021-07-07 20:13:00 47.25 kg/m2 [facility] Procedures This patient has no known procedures. Encounters Start End Encounter Admission Attending Care Care Encounter Source Date/Time Date/Time Type Type Clinicians Facility Department ID 2021-05-[address] [facility] [id number] Univers 06:25:20 ity [facility] [place] [facility] 2021-05-[address] [facility] [id number] Univers 01:08:17 ity [facility] [place] [facility] 2021-05-[address] [facility] [id number] Univers 06:13:50 ity [facility] 2021-05-04 Outpatient WOODY, [facility] SOR [id number] Univers 04:21:39 JANINE ity [facility] 2021-05-[address] [facility] [id number] Univers [facility] 2020-09-21 Inpatient [facility] [id number] [facility] 11:31:00 [id number] [facility] 2022-04-08 2022-04-08 Outpatient Nicola MOSCOSO [facility] [id number] Univers 10:20:00 10:20:00 [facility] 2022-04-06 2022-04-06 Telephone [facility] 1.2.840.114 [id number] Univers 00:00:00 00:00:00 [facility] 350.1.13.10 it y of [place] 4.2.7.2.686 [facility] [phone] [facility] PRIMARY & 365 Branch SPECIALTY CARE 2022-01-22 2022-01-22 Telephone [facility] 1.2.840.114 [id number] Univers 00:00:00 00:00:00 [facility] 350.1.13.10 it y [facility] 4.2.7.2.[address] [place] [address] [phone] [facility] PRIMARY & 365 Branch SPECIALTY CARE 2021-10-11 2021-10-11 Emergency EM Cristhian, [facility] [id number] [facility] 11:16:00 12:58:00 Cherelle [id number] [facility] 2021-10-11 2021-10-11 Emergency EM Cristhian KEVYN [facility] [id number] [facility] 11:16:00 12:58:00 Cherelle 97 [facility] 2021-08-13 2021-08-13 Telephone [facility] 1.2.840.114 [id number] Univers 00:00:00 00:00:00 Janine SOUTH 350.1.13.10 it y [place].2.686 [place] [phone] [facility] [address] [place] 2021-08-01 2021-08-01 Telephone [facility] 1.2.840.114 [id number] Univers 00:00:00 00:00:00 Janine PRIMARY 350.1.13.10 it y of C[place] 4.2.[place].2.[place] [id number] Nj dicdc [address] [place] 2021-07-31 2021-07-31 [facility] 1.2.840.114 [id number] Univers 00:00:00 00:00:00 Janine PRIMARY 350.1.13.10 it y of [place] 4.2.7.2.[place] [id number] [facility] [address] [place] 2021-07-07 2021-07-07 Office [facility] 1.2.076.460 [id number] Univers 13:40:00 13:50:00 Visit Janine PRIMARY 350.1.13.10 it y of [place] 4.2.[place].2.[place] [id number] [facility] [address] [place] 2021-07-07 2021-07-07 Outpatient R WOODY [facility] [id number] Univers 13:40:00 13:40:00 JANINE cerda [facility] [place] [facility] 2021-07-07 2021-07-07 Orders Doctor JANINE 1.2.840.114 [id number] Univers 00:00:00 00:00:00 Only Unassigned, JACOB 350.1.13.10 ity of [place] [facility] 4.2.7.2.686 Jeremiah as [id number] [facility] 009 Branch 2021-05-21 2021-05-21 Outpatient Nicola LAUGHLIN [facility] [id number] Univers 09:00:00 09:00:00 MICHEL cerda [facility] [place] [facility] 2021-05-21 2021-05-21 John Gleason [facility] 1.2.840.114 [id number] Univers 00:00:00 00:00:00 Management Amaris PRIMARY 350.1.13.10 it[place] of C[place] 4.2.7.2.[place] [id number] Me dical 178 Branch 2021-05-13 2021-05-[address] [facility] 1.2.840.114 [id number] Univers 00:00:00 00:00:00 Management Amaris PRIMARY 350.1.13.10 ity of C[place] 4.2.7.2.[place] [id number] Me dical 178 Branch 2021-05-06 2021-05-[address] [facility] 1.2.840.114 [id number] Univers 00:00:00 00:00:00 Management Kate E PRIMARY 350.1.13.10 ity of C[place] 4.2.7.2.[place] [id number] Nj dical 178 Branch 2021-04-30 2021-04-30 Outpatient R TRUMAN [facility] [id number] Univers 08:15:00 09:05:27 MICHEL ity of [facility] 2021-04-30 2021-04-30 Ancillary Kate Perea [facility] 1.2.84 0.114 [id number] Univers 08:10:26 09:05:27 Visit Truman Michel A PRIMARY 350.1.13.10 ity of C[place] 4.2.7.2.[place] [id number] Nj dical 178 Branch 2021-04-30 2021-04-30 Outpatient R [facility] [id number] Univers 08:15:00 08:15:[address] [facility] 2021-04-24 2021-04-[address] [facility] 1.2.678.128 [id number] Univers 00:00:00 00:00:00 Amaris PRIMARY 350.1.13.10 it y of C[place] 4.2.7.2.[place] [id number] Nj dical 178 Branch 2021-04-17 2021-04-17 Ancillary Amaris Gleason [facility] 1.2.840.114 [id number] Univers 13:36:55 14:18:27 Visit Michel Laughlin PRIMARY 350.1.13.10 ity of C[place] 4.2.7.2.686 [place] [id number] Nj dical 178 Branch 2021-04-10 2021-04-10 Ancillary Amaris Gleason [facility] 1.2.840.114 [id number] Univers 13:30:25 14:19:43 Visit Michel Laughlin PRIMARY 350.1.13.10 ity of CARE 4.2.7.2.[place] [id number] Nj dical [address] [place] 2021-04-02 2021-04-02 Ancillary Amaris Gleason [facility] 1.2.840.114 [id number] [facility] 14:39:57 15:54:28 Visit Michel Laughlin PRIMARY 350.1.13.10 ity of CARE 4.2.[place].2.[place] [id number] Nj dical [address] [place] 2021-04-02 2021-04-02 [facility] [id number] Univers 14:45:00 14:45:00 MICHELALYX cerda [facility] [place] [facility] 2021-03-31 2021-03-31 [facility] 1.2.840.114 [id number] Univers 13:41:34 23:59:00 Encounter Janine PRIMARY 350.1.13.10 ity of C[place] 4.2.7.2.[place] [id number] Nj dical [address] [place] 2021-03-31 2021-03-31 Office [facility] 1.2.401.119 [id number] Univers 13:20:51 15:03:27 Visit Janine PRIMARY 350.1.13.10 it y of CARE 4.2.7.2.[place] [id number] Nj dical [address] [place] 2021-03-31 2021-03-31 Outpatient R [facility] [id number] Univers 14:00:00 14:00:00 JANINE zaida [facility] [place] [facility] 2021-03-31 2021-03-31 Outpatient R FAILLAKHARI, [facility] [id number] Univers 13:30:00 13:30:00 JANINE cerda [facility] [place] [facility] 2021-03-31 2021-03-31 Outpatient R WOODY, [facility] [id number] Univers 13:30:00 13:30:00 JANINE cerda [facility] [place] [facility] 2021-02-24 2021-02-24 [facility] 1.2.840.114 [id number] Univers 13:31:30 23:59:00 Encounter Janine PRIMARY 350.1.13.10 ity of C[place] 4.2.7.2.[place] [id number] Nj dical [address] [place] 2021-02-24 2021-02-24 Office [facility] 1.2.495.053 [id number] Univers 13:17:21 14:07:52 Visit Janine PRIMARY 350.1.13.10 it y of C[place] 4.2.7.2.[place] [id number] Nj dical [address] [place] 2021-02-24 2021-02-24 Outpatient R WOODY, [facility] [id number] Univers 13:45:00 13:45:00 JANINE cerda [facility] [place] [facility] 2021-02-24 2021-02-24 Outpatient R FAILCECILIO, [facility] [id number] Univers 13:20:00 13:20:00 JANINE cerda [facility] [place] [facility] 2021-01-24 2021-01-24 Orders Doctor JANINE 1.2.840.114 [id number] Univers 00:00:00 00:00:00 Only Unassigned, JACOB 350.1.13.10 ity of [place] [facility] 4.2.7.2.686 Jeremiah as [id number] [address] 2021-01-17 2021-01-17 Telephone [facility] 1.2.840.114 [id number] Univers 00:00:00 00:00:00 Janine PRIMARY 350.1.13.10 it y of C[place] 4.2.7.2.[place] [id number] Nj dical [address] [place] 2021-01-15 2021-01-15 [facility] 1.2.840.114 [id number] Univers 14:40:00 23:59:00 Encounter Janine SPECIALTY 350.1.13.10 ity of C[place] 4.2.7.2.686 [place] CENTER AT [id number] Nj keerthi MAURO 809 [facility] 2021-01-15 2021-01-15 Office [facility] 1.2.575.589 [id number] Univers 14:30:04 16:08:36 Visit Janine SPECIALTY 350.1.13.10 ity of C[place] 4.2.7.2.686 [place] C[place] AT [id number] Nj keerthi MAURO 198 [facility] 2021-01-15 2021-01-15 Outpatient R [facility] [id number] Univers 14:40:00 14:40:00 JANINE [facility] 2021-01-07 2021-01-08 Emergency Julissa, [place] 1.2.486.596 [id number] Univers 20:07:00 03:12:00 [facility] 350.1.13.10 ity of [place].2.686 [place] [id number] [facility] 014 Branch 2020-12-30 2020-12-30 Ancillary GleasonAmaris [facility] 1.2.840.114 [id number] Univers 13:43:01 17:00:51 Visit Michel Laughlin 350.1.13.10 ity of C[place] 4.2.7.2.686 [place] [id number] Nj keerthi [address] [place] 2020-12-30 2020-12-30 Outpatient R TRUMAN [facility] [id number] Univers 13:45:00 13:45:00 MICHEL cerda [facility] [place] [facility] 2020-12-30 2020-12-[address] [facility] 1.2.840.114 [id number] Univers 00:00:00 00:00:00 [facility] 350.1.13.10 it [place] of [place]2.7.2.686 [place] [facility] [id number] [facility] Primary & 365 Branch Specialty Care 2020-12-27 2020-12-27 Patient Access [facility], Psychiatric 1.2.840.11 [id number] Univers 14:04:30 14:19:30 Visit GloriaCampbell [facility] 350.1.13.10 ity of [place] 4.2.7.2.[address] [facility] [id number] [facility] Primary & 357 Branch Specialty Care 2020-12-27 2020-12-27 Office Gloria [facility] 1.2.840.114 [id number] [facility] 13:24:42 13:54:42 Visit [facility] 350.1.13.10 it y of [place] 4.2.7.2.[address] [facility] [id number] [facility] Primary & 365 Branch Specialty Care 2020-12-27 2020-12-27 Outpatient R GLORIA [facility] [id number] Univers 13:30:00 13:30:00 [facility] [place] [facility] 2020-12-27 2020-12-27 Telephone [facility]ly [facility] 1.2.840.114 [id number] Univers 00:00:00 00:00:00 Janine SPECIALTY 350.1.13.10 ity of CARE 4.2.7.2.686 [facility] [id number] Nj keerthi MAURO [address] [place] [address] 2020-12-20 2020-12-20 Telephone [facility] 1.2.840.114 [id number] Univers 00:00:00 00:00:00 Janine SPECIALTY 350.1.13.10 it[place] of C[place] 4.2.7.2.686 [place] AT [id number] Nj lucitavictoria MAURO [address] [place] [address] 2020-12-19 2020-12-19 Telephone [facility] 1.2.840.114 [id number] Univers 00:00:00 00:00:00 Janine SPECIALTY 350.1.13.10 ity of C[place] 4.2.7.2.686 [place] CENTER AT [id number] Nj lucitavictoria MAURO [address] [place] [address] 2020-12-18 2020-12-18 Office [facility]Formerly [facility] 1.2.157.992 [id number] Univers 15:55:56 17:12:09 Visit Janine SPECIALTY 350.1.13.10 ity of CARE 4.2.7.2.686 [place] C[place] AT [id number] Nj keerthi MAURO 198 [facility] 2020-12-18 2020-12-18 Outpatient R FAILLACE, [facility] [id number] Univers 16:10:00 16:10:00 [facility] [place] [facility] 2020-12-16 2020-12-16 Emergency Mauro, [place] 1.2.679.243 [id number] Univers 15:50:00 19:43:00 Corbin L CENTER 350.1.13.10 ity [place] 4.2.7.2.686 [place] [id number] [address] 2020-12-11 2020-12-11 Telephone [facility]Formerly [facility] 1.2.840.114 [id number] Univers 00:00:00 00:00:00 Janine SPECIALTY 350.1.13.10 ity of C[place] 4.2.7.2.686 [place] CENTER AT [id number] Nj keerthi MAURO [address] [place] [address] 2020-12-04 2020-12-04 Outpatient R FAILLACE, [facility] [id number] Univers 16:20:00 16:20:00 [facility] [place] [facility] 2020-11-28 2020-11-28 Telephone [facility]Formerly [facility] 1.2.840.114 [id number] Univers 00:00:00 00:00:00 Janine PRIMARY 350.1.13.10 it [place] of C[place] 4.2.7.2.686 [place] [id number] Nj keerthi [address] [place] 2020-11-27 2020-11-27 Patient Steve, [facility] 1.2.229.781 [id number] Univers 00:00:00 00:00:00 Secure g Angeline Borges SPECIALTY 350.1.13.10 ity of C[place] 4.2.7.2.686 [place] CENTER AT [id number] Nj keerthi MAURO 198 [facility] 2020-11-05 2020-11-[address] [facility] 1.2.840.114 [id number] Univers 00:00:00 00:00:00 Janine PRIMARY 350.1.13.10 it y of C[place] 4.2.7.2.[place] [id number] [facility] [address] [place] 2020-11-04 2020-11-04 [facility] 1.2.840.114 [id number] Univers 13:00:14 23:59:00 Encounter Janine PRIMARY 350.1.13.10 ity of C[place] 4.2.7.2.[place] [id number] [facility] [address] [place] 2020-11-04 2020-11-04 [facility] 1.2.413.250 [id number] Univers 12:42:49 14:23:19 Visit Janine [place] 350.1.13.10 it y of C[place] 4.2.7.2.[place] [id number] [facility] [address] [place] 2020-11-04 2020-11-04 Outpatient R [facility] [id number] Univers 13:15:00 13:15:00 [facility] [place] [facility] 2020-11-04 2020-11-04 Outpatient R [facility] [id number] Univers 13:00:00 13:00:00 [facility] [place] [facility] 2020-11-04 2020-11-04 Telephone [facility] 1.2.840.114 [id number] Univers 00:00:00 00:00:00 Janine PRIMARY 350.1.13.10 it y of C[place] 4.2.7.2.[place] [id number] [facility] [address] [place] 2020-10-29 2020-10-29 Telephone [facility] 1.2.840.114 [id number] Univers 00:00:00 00:00:00 Janine PRIMARY 350.1.13.10 it y of C[place] 4.2.7.2.[place] [id number] [facility] [address] [place] 2020-10-25 2020-10-25 [facility] 1.2.840.114 [id number] Univers 07:22:00 16:08:00 Encounter [facility] 350.1.13.10 ity of [place] 4.2.7.2.686 [place] [facility] [id number] [facility] 049 [facility] 2020-10-25 2020-10-25 Surgery [facility] 1.2.467.686 [id number] Univers 08:56:00 11:55:00 Janine SPECIALTY 350.1.13.10 ity of CARE 4.2.7.2.686 [facility] [id number] Nj lucitavictoria MAURO 020 [facility] 2020-10-25 2020-10-25 Outpatient R [facility] SOR [id number] Univers 08:58:00 08:58:00 JANINE cerda [facility] [place] [facility] 2020-10-25 2020-10-25 Orders Doctor JANINE 1.2.840.114 [id number] Univers 00:00:00 00:00:00 Only Unassigned, JACOB 350.1.13.10 ity of [place] [facility] 4.2.7.2.686 Jeremiah [id number] [facility] [address] [place] 2020-10-24 2020-10-24 Laboratory Only, [facility] Test [facility] 1.2.840. 114 [id number] Univers 15:04:09 15:19:09 Only Janine Rodriguez 350.1.13.10 ity of CARE 4.2.7.2.686 [facility] AT [id number] Nj lucitavictoria MAURO 353 [facility] 2020-10-24 2020-10-24 Outpatient R FAILLACE, [facility] [id number] Univers 14:45:00 14:45:00 JANINE [facility] 2020-10-21 2020-10-21 Letter [facility] 1.2.407.895 [id number] Univers 00:00:00 00:00:00 (Out) Janine SPARGUE 350.1.13.10 it y of CARE 4.2.7.2.686 [place] [id number] Nj lucitavictoria [address] [place] 2020-10-21 2020-10-21 Patient Black, [facility] 1.2.694.180 [id number] Univers 00:00:00 00:00:00 Secure Msg Janine PRIMARY 350.1.13.10 ity of C[place] 4.2.7.2.[place] [id number] Nj keerthi [address] [place] 2020-10-11 2020-10-11 Telephone [facility] 1.2.840.114 [id number] Univers 00:00:00 00:00:00 Janine SPECIALTY 350.1.13.10 ity of C[place] 4.2.7.2.686 [place] C[place] AT [id number] Nj keerthi MAURO [address] [place] [address] 2020-10-07 2020-10-07 [facility] [id number] Univers 10:50:00 10:50[facility]00 [facility] 2020-10-07 2020-10-07 [facility] [id number] Univers 10:50:00 10:50:00 [facility] [place] [facility] 2020-10-04 2020-10-04 Telephone [facility] 1.2.840.114 [id number] Univers 00:00:00 00:00:00 Janine SPECIALTY 350.1.13.10 it[place] of C[place] 4.2.7.2.686 [place] CENTER AT [id number] Nj keerthi MAURO [address] [place] [address] 2020-09-23 2020-09-23 Laboratory Only, Pcp Test [facility] 1.2.840. 114 [id number] Univers 13:50:07 14:05:07 Only Janine Rodriguez PRIMARY 350.1.13.10 it[place] of C[place] 4.2.7.2.[place] [id number] Nj keerthi [address] [place] [address] 2020-09-23 2020-09-23 Outpatient R WOODY, [facility] [id number] Univers 14:00:00 14:00:00 [facility] [place] [facility] 2020-09-17 2020-09-17 Emergency TRAUMA 1.2.868.631 [id number] Univers 07:11:00 07:30:00 CENTER 350.1.13.10 it [place] of 4.2.7.2.[place] [id number] [facility] 014 Branch 2020-09-17 2020-09-17 Emergency [place] 1.2.077.027 [id number] 07:11:00 07:30:00 CENTER 350.1.13.10 4.2.7.2.686 [id number] 2020-08-09 2020-08-09 [facility] 1.2.840.114 [id number] Univers 00:00:00 00:00:00 Janine PRIMARY 350.1.13.10 it y of C[place] 4.2.7.2.[place] [id number] [facility] [address] 2020-08-09 2020-08-09 [facility] 1.2.840.114 [id number] 00:00:00 00:00:00 Janine PRIMARY 350.1.13.10 CARE 4.2.7.2.686 PAVILLION [id number] 198 2020-08-05 2020-08-05 Outpatient [facility]ola [facility] [id number] Univers 13:00:11 23:59:00 JANINE cerda [facility] 2020-08-05 2020-08-05 [facility] 1.2.840.114 [id number] Univers 13:00:00 23:59:00 Encounter Janine PRIMARY 350.1.13.10 ity of C[place].2.7.2.[place] [id number] [facility] [address] [place] 2020-08-05 2020-08-05 [facility] 1.2.840.114 [id number] 13:00:00 23:59:00 Encounter Janine PRIMARY 350.1.13.10 CARE 4.2.7.2.686 PAVILLION [id number] 2020-08-05 2020-08-05 Outpatient [facility] [id number] Univers 15:00:00 15:00:00 MICHEL cerda [facility] 2020-08-05 2020-08-05 Outpatient R [facility] [id number] Univers 13:20:00 13:20:00 JANINE [facility] 2020-08-05 2020-08-05 Office [facility] 1.2.643.835 [id number] Univers 12:56:00 13:06:00 Visit Janine PRIMARY 350.1.13.10 it y of C[place] 4.2.7.2.[place] [id number] Nj dicdc [address] [place] 2020-08-05 2020-08-05 Office [facility] 1.2.359.422 [id number] 12:56:00 13:06:00 Visit Janine PRIMARY 350.1.13.10 CARE [id number] PAVILLION [id number] [facility] 2020-08-05 2020-08-05 Outpatient R [facility] [id number] Univers 00:00:00 00:00:00 [facility] 2020-08-04 2020-08-[address] [facility] [id number] Univers 00:00:00 00:00:00 Nick PRIMARY [id number] it [place] [id number] [id number] [place] 198 [place] 2020-08-01 2020-08-01 Emergency Vasut, TRAUMA 1.2.200.906 [id number] Univers 07:52:00 13:28:00 Rodney [facility] 350.1.13.10 [place] [phone] [facility] 014 [place] 2020-07-24 2020-07-24 Ancillary Kate Perea [facility] 1.2.84 0.114 [id number] Univers 14:39:10 15:24:10 Visit Michel Laughlin PRIMARY 350.1.13.10 [place] [phone] [place] [address] 2020-07-24 2020-07-24 Outpatient R [facility] [id number] Univers 15:00:00 15:00:[address] [facility] 2020-07-08 2020-07-08 Ancillary Kate Perea [facility] 1.2.84 0.114 [id number] Univers 12:53:01 13:38:01 Visit Michel Laughlin PRIMARY 350.1.13.10 [place] [phone] [facility] 178 [place] 2020-07-08 2020-07-08 Outpatient [facility] [id number] Univers 13:00:00 13:00:00 MICHEL ity of [facility] 2020-06-26 2020-06-26 Case Eliazar [facility] 1.2.840.114 [id number] Univers 00:00:00 00:00:00 Management Kate Simon PRIMARY 350.1.13.10 [place] [id number] [address] 2020-06-19 2020-06-19 Ancillary Kate Perea [facility] 1.2.84 0.114 [id number] Univers 13:54:01 14:39:01 Visit Michel Laughlin PRIMARY 350.1.13.10 [place] [id number] [address] 2020-06-12 2020-06-12 Outpatient R [facility] [id number] Univers 13:45:00 13:45:[address] [facility] 2020-06-11 2020-06-11 Ancillary Amaris Gleason [facility] 1.2.840.114 [id number] Univers 14:27:57 15:12:57 Visit LaughlinMichel PRIMARY 350.1.13.10 [place] [id number] [address] 2020-06-06 2020-06-06 Ancillary Victorino Amaris [facility] 1.2.840.114 [id number] Univers 15:29:18 16:14:18 Visit Truman Michel Beverley PRIMARY 350.1.13.10 it[place] [phone] [place] [address] [place] 2020-05-29 2020-05-29 Ancillary Amaris Gleason [facility] 1.2.840.114 [id number] Univers 13:59:22 14:44:22 Visit Michel Laughlin PRIMARY 350.1.13.10 [place] [id number] [place] [address] [place] 2020-05-29 2020-05-29 Outpatient R [facility] [id number] Univers 14:00:00 14:00:00 ity [facility] [place] [facility] 2020-05-13 2020-05-13 [facility] 1.2.840.114 [id number] Univers 09:02:44 23:59:00 Encounter Janine PRIMARY 350.1.13.10 [place] [phone] [place]ical 807 [place] 2020-05-13 2020-05-13 Ancillary EliazarKate [facility] 1.2.84 0.114 [id number] Univers 11:07:13 11:52:13 Visit Michel Laughlin PRIMARY 350.1.13.10 [place] [id number] [place] dicdc [address] [place] 2020-05-13 2020-05-13 Outpatient R [facility] [id number] Univers 11:30:00 11:30:00 [facility] 2020-05-13 2020-05-13 [facility] [id number] Univers 10:00:00 10:00:00 JANINE [facility] 2020-05-13 2020-05-13 [facility] 1.2.079.958 [id number] Univers 08:59:24 09:19:24 Visit Janine PRIMARY 350.1.13.10 it [place] [id number] [place] dicdc [address] [place] 2020-05-13 2020-05-13 Outpatient R [facility] [id number] Univers 00:00:00 00:00:00 JANINE ity of [facility] 2020-05-12 2020-05-12 Abstract [place], [facility] 1.2.187.725 [id number] Univers 00:00:00 00:00:00 Angel [place] 350.1.13.10 ity of CARE 4.2.7.2.686 [place] [id number] [place]ical [address] 2020-05-07 2020-05-07 Orders Doctor JANINE 1.2.840.114 [id number] Univers 00:00:00 00:00:00 Only Unassigned, JACOB 350.1.13.10 ity of [facility] 4.2.7.2.686 Jeremiah as [phone] [address] Results Test Description Test Time Test Comments Results Result [facility] e Comments - XR FOOT 3 + V LT 2021-10-11 12:05:00 [facility] [place] LUCY HUNGAN : 2000 Sex: M FAX: Cherelle Morrow MD [phone] [facility] REG Name: ANABELLVALENCIA [facility] : 2000 Age/S: 21/M [address] [facility] Unit #: [id number] Loc: [place], [place]: [place] [address] Acct: [id number] Dis Date: Status: REG ER PHONE #: [phone] Exam Date: 10/11/2021 120 FAX #: [phone] Reason: pain, catfish stinger medial forefoot EXAMS: CPT CODE: [id number] XR FOOT 3 + [place] [address] B2 Exam: - XR FOOT 3 + V LT DATE:10/11/2021 11:32 AM INDICATION:pain, catfish stinger medial forefoot COMPARISON:None DISCUSSION: No acute fracture or dislocation. No significant soft tissue abnormality. No radiopaque foreign body. IMPRESSION: No acute osseous abnormality. at 1200 Reported and signed by: ERICH MAXWELL MD CC: Cherelle Morrow MD Technologist: URVASHI Drummond Trnscrd Date/Time/By: 10/11/2021 (2294) : By: Kristina PAGE 1 Signed Report FAX: Cherelle Morrow MD [phone] [facility] REG Name: VALENCIA HUNG [facility] : 2000 Age/S: 21/M [address] [facility] Unit #: [id number] Loc: [place], [place]: [place] [address] Acct: [id number] Dis Date: Status: REG ER PHONE #: [phone] Exam Date: 10/11/2021 120 FAX #: [phone] Reason: pain, catfish stinger medial forefoot EXAMS: CPT CODE: [id number] XR FOOT 3 + [place] [address]252 (Continued) Orig Print D/T: S: 10/11/2021 (3897) PAGE 2 Signed Report - US ABDOMEN LTD 2020-09-21 15:45:00 [facility] [place] [facility] [place] VALENC[place] HUNG : 2000 Sex: M FAX: Jamar Beck DO [phone] [facility] FAX: Waylon Melo [phone] Name: VALENCIA HUNG [facility] : 2000 Age/S: 20/M [address] [facility] Unit #: [id number] Loc: [address] 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 2. Hepatomegaly with hepatic steatosis. at 1549 Reported and signed by: Enrike Honeycutt M.D. 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 [address] Acct: [id number] Dis Date: Status: REG ER PHONE #: [phone] Exam Date: 09/21/2020 1602 FAX #: [phone] Reason: RUQ pain EXAMS: CPT CODE: [id number] US ABDOMEN LTD 60025 (Continued) Orig Print D/T: S: 09/21/2020 (9931) PAGE 2 Signed Report COMPREHENSIVE METABOLIC PANEL [...] = ALKP) 97 Units/L 50.0-136 .0 N [id number] 13:20:00 Test Item Value Reference Range Interpretation Comments LIPASE (test code = LIP) 79 Units/L 65.0-230.0 N [id number] 13:20:00 Test Item Value Reference Range Interpretation Comments TROPONIN-I (test <0.02 NG/ML 0.00-0.06 N REFERENCE R ARNOLD code = TROPI) TROPONIN I HEA LTHY INDIVIDUALS: <0 .06 ng/mL R/O ISCHE SUNDEEP: 0.07 - 0.60 ng/ mL CUT-OFF RANGE F OR AMI: 0.60 - 1.5 ng/m L - CT ABD PELVIS W/O [id number] 13:13:00 [facility] [place] [facility] [place] VALENCIA HUNG : 2000 Sex: M FAX: Jamar Beck DO [phone] [facility] REG FAX: Y Waylon Holley [phone] Name: VALENCIA HUNG [facility] : 2000 Age/S: 20/M [address] [facility] Unit: [id number] Loc: [address] 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: 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 Holley 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 [address] Acct: [id number] Dis Date: Status: REG ER PHONE #: [phone] Exam Date: 09/21/2020 1304 FAX #: [phone] Reason: abd pain EXAMS: CPT CODE: [id number] CT ABDPELVIS W/O CONT 34427 C3 TIME OF STUDY: 09/21/2020 12:41 PM [...] Signed Report (CONTINUED) FAX: Jamar Beck DO [phone] [facility] REG FAX: Waylon Melo [phone] Name: VALENCIA HUNG [facility] :2000 Age/S: 20/M [address] [facility] Unit: [id number] Loc: [address] 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 CC: Jamar Beck DO; Waylon Holley NP Technologist: NINA CANSECO Trnhibety Dt/Tm: 09/21/2020 (4567) [email or web address] Orig Print D/T: S: 09/21/2020 (0636 PAGE 2 Signed ReportCOMPREHENSIVE METABOLIC PANEL 2020-09-21 13:11:00 Test Item Value Reference Range Interpretation [...] TOTAL (test Units/L 50.0-136.0 code = ALKP) [id number] 13:11:00 Test Item Value Reference Range Interpretation Comments LIPASE (test code = LIP) Units/L 65.0-230.0 [id number] 13:11:00 Test Item Value Reference Range Interpretation Comments TROPONIN-I (test code = TROPI) NG/ML 0.00-0.06 - XR CHEST 1 [id number] 13:08:00 [facility] [place] [facility] [place] VALENCIA H[place]G : 2000 Sex: M FAX: Jamar Leon DO [phone] [facility] REG FAX: Waylon Melo [phone] Name: VALENCIA HUNG [facility] : 2000 Age/S: 20/M [address] [facility] Unit #: [id number] Loc: [address] 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 FINDINGS: Frontal view of the chest is submitted. Heart size within normal limits.Low lung volumes mild bronchovascular crowding. The lungs are clear of focal consolidation. No effusion or evidence of pneumothorax.. No acute osseous pathology. IMPRESSION 1. Low lung volumes mild bronchovascular crowding. Otherwise, no radiographic evidence of acute cardiopulmonary process. Elect ronically Signed by NELY MEYER M.D. on 09/21/2020 at 8988 Reported and signed by: NELY MEYER M.D. CC: Jamar Kiran DO; Waylon Holley NP Technologist: KITTY MOORE Trnscrd Date/Time/By: 09/21/2020 (4870) : By: [email or web address] PAGE 1 Signed Report FAX: Jamar Beck DO [phone] [facility] REG FAX: Waylon Melo [phone] Name: VALENCIA HUNG [facility] : 2000 Age/S: 20/M [address] [facility] Unit #: [id number] Loc: [address] Phys: Waylon Martin i 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 [address] Acct: [id number] Dis Date: Status: REG ER PHONE #: [phone] Exam Date: 09/21/2020 1301 FAX #: [phone] Reason: cp EXAMS: CPT CODE: [id number] XR CHEST 1 V 02768 (Continued) Orig Print D/T: S: 09/21/2020 (1311) PAGE 2 Signed ReportDRUGS OF ABUSE SCREEN [id number] 13:07:00 Test Item Value Reference Interpretation Comments [...] = [place]) concentrati on: 300 ng/mL URINALYSIS [id number] 13:05:00 Test Item Value Reference Range Interpretation [...] (test code = TRACE NONE BACU) URINALYSIS [id number] 13:04:00 Test Item Value Reference Range Interpretation [...] (test code = NONE BACU) CBC W/AUTO [id number] 12:58:00 Test Item Value Reference Range Interpretation [...] Notes Date/Time Note Provider Source 2021-10-11 12:30:00-00:00 [facility] ([facility]) EMERGENCY PROVIDER REPORT REPORT#:[id number] REPORT STATUS: Signed DATE:10/11/21 TIME: 1230 PATIENT: VALENCIA HUNG UNIT #: [id number] ROOM/BED: AGE: 21 SEX: M PCP PHYS: No Primary or Family Ph ysician SERVICE AUTHOR: Cherelle Morrow MD * ALL edits or amendments must be made on the el [employer]/computer document * HPI-Foot Prob/Inj General Initial Greet [...] Pulse Ox 98 10/11 1117 B/P 139/85 04/09 1117 B/P Mean 103 10/11 1117 O2 Delivery Room air 10/11 1116 Temp 36.7 10/11 1116 Pulse 98 10/11 1116 Resp 19 10/11 1116 Last Documented: Result Date Time Pulse Ox 98 10/11 1116 B/P 139/85 10/11 1117 B/P Mean 103 10/11 1117 O2 Delivery Room air 10/11 1116 Temp 36.7 10/11 1116 Pulse 98 10/11 1116 Resp 19 10/11 1116 Review of Vital [...] 1117 Temp 36.7 10/11 1117 Pulse 98 04/ 1117 Resp 19 10/11 1117 Last Documented: Result Date Time Pulse Ox 98 10/11 1117 B/P 139/85 / 1117 B/P Mean 103 / 1117 O2 Delivery Room air 10/11 1117 Temp 36.7 / 1117 Pulse 98 / 1117 Resp 19 10/11 1117 All vital [...] Referrals Referral: PRIMARY DOCTOR at 0841 RPT #:[id number] END OF REPORT 2020-09-21 19:13:00-00:00 [facility] ([facility]) EMERGENCY PROVIDER REPORT REPORT#:[id number] REPORT STATUS: Signed DATE:09/21/20 TIME: 1912 PATIENT: VALENCIA HUNG UNIT #: [id number] ROOM/BED: AGE: 20 SEX: M PCP PHYS: No Primary or Family Ph ysician SERVICE AUTHOR: Waylon Holley 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 * ALL edits or amendments must be made on the [employer]/computer document * HPI-Abd Pain M Under 40 [...] (Auto) (23.0 - 38.0 %) 16.5 L [place] % (Auto) (1.0 - 10.0 %) 5.4 Eos % (Auto) (1.0 - 5.0 %) 1.5 Baso % (Auto) (0.0 - 1.0 %) 0.5 Neut # (Auto) (2.4 - 6.3 K/mm3) 10.0 H Lymph # (Auto) (1.2 - 4.0 K/mm3) 2.2 [place] # (Auto) (0.0 - 0.6 K/mm3) 0.7 [...] pH (5.0 - 9.0) 6.0 Ur Specific [place] (1.000 - 1.030) 1.020 Urine Protein (NEGATIVE [...] and current condition do not suggest ac [place] appendicitis, bowel obstruction, incarcerated he rnia, testicular [...] will pursue further outpatient evaluation with the [facility] care physician or other designated or consulting [...] Documented: Result Date Time B/P 122/82 09/21 1938 B/P Mean 95 09/21 1938 Pulse 70 09/21 1938 Resp 28 09/21 1938 Temp 36.6 09/21 1413 Pulse Ox 98 [...] physician or other designated or consulting phys juaquinan as outlined in the discharge instructions. The [...] symptoms should prompt an immediate return to [facility] or the closest emergency department or a call to 911. at 2135 RPT #:[id number] END OF REPORT 2020-09-21 19:13:00-00:00 [facility] ([facility]) EMERGENCY PROVIDER REPORT REPORT#:[id number] REPORT STATUS: Signed DATE:09/21/20 TIME: 1912 PATIENT: VALENCIA HUNG UNIT #: [id number] ROOM/BED: AGE: 20 SEX: M PCP PHYS: No Primary or Family Ph ysician SERVICE AUTHOR: Waylon Holley NP * ALL edits or amendments must be made on the [employer]/computer document * Waylon Holley 09/21/201912: HPI-Abd Pain [...] Pulse 87 09/21 1132 Resp 17 09/21 113 Last Documented: Result Date Time B/P 122/82 [...] (Auto) (23.0 - 38.0 %) 16.5 L [place] % (Auto) (1.0 - 10.0 %) 5.4 Eos % (Auto) (1.0 - 5.0 %) 1.5 Baso % (Auto) (0.0 - 1.0 %) 0.5 Neut # (Auto) (2.4 - 6.3 K/mm3) 10.0 H Lymph # (Auto) (1.2 - 4.0 K/mm3) 2.2 [place] # (Auto) (0.0 - 0.6 K/mm3) 0.7 [...] pH (5.0 - 9.0) 6.0 Ur Specific [place] (1.000 - 1.030) 1.020 Urine Protein (NEGATIVE [...] Silvia Honeycutt M.D. ULTRASOUND - US ABDOMEN [facility] 09/21 1440 Report Impression - Status: [...] and current condition do not suggest ac [place] appendicitis, bowel obstruction, incarcerated he rnia, testicular [...] will pursue further outpatient evaluation with the [facility] care physician or other designated or consulting [...] symptoms should prompt an immediate return to [facility] or the closest emergency department or a call to 1. Jamar Beck 09/28/20 0233: Patient Discharge Departure Supervising Physician Note MidLv Saw Pt Alone I have reviewed the PA/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's note and plan of car e. I was available for consultation as needed at al l times during the patient's visit in the emergency department. I agree with the clinical impression , plan and disposition. at 8863 Electronically Signed by Jamar eBck DO on at 1383 RPT #:[id number] END OF REPORT
== END 2022-12-29 11:40 | disposition home or self-care (01) ==
LOC: ER 11:17
DX: Z02.79 Encounter for issue of other medical certificate (principal)

== ENCOUNTER 2023-05-20 17:14 | Emergency (ER) | payer BC ==
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
--- OUTSIDE RECORDS SUMMARY | 2023-05-20 17:36 | XMS REPORT | Continuity of Care Document ---
:2000 Author Organization [facility] t Address [address] [place] [address] Care Team Providers Name Role Phone Campbell Castro Primary Care Physician [phone] JANINE RODRIGUEZ Attending Clinician Unavailable ROLANDO MOSCOSO Attending Clinician Unavailable Campbell Castro Attending Clinician Cherelle Morrow Attending Clinician Unavailable Janine Rodriguez MD Attending Clinician Doctor Unassigned, [place] Attending Clinician Unavailable MICHEL LAUGHLIN Attending Clinician Unavailable Amaris Gleason OT Attending Clinician Unavailable Kate Perea OT Attending Clinician Unavailable Michel Laughlin MD Attending Clinician Berto Costa MD Attending Clinician Lab, Jeremiah Cbc Attending Clinician Unavailable CAMPBELL PADRON Attending Clinician Unavailable Corbin Mauro APN Attending [...] Number Effective Date Expiration Date Delroy sousa [facility] [id number] 2020 00:00:00 Problems Condition Condition Condition Status Onset Resolution Last Treating Co mments Source Name Details Category Date Date Treatment Clinician Date Morbid Morbid Disease Active Univers obesity obesity 10-25 [place] of [place] mass index 00 Me dical of of Branch 40.0-49.9 40.0-49.9 Attention Attention Disease Active Uni vers deficit deficit 07-10 [place] Medical disorder disorder Branch (ADHD), (ADHD), predominan predominan tly tly inattentiv inattentiv e type e type Obesity Obesity Disease Active Univers 07-10 ity of 00:00: [place] [facility] Essential Essential Disease Active Uni vers hypertensi hypertensi 07-10 it y of on on 00:: [address] Allergies, Adverse Reactions, Alerts Allergy Allergy Status Severity Reaction(s) Onset Inactive Treating Comm ents Source Name Type Date Date Clinician No Known DA Active U [facility] Allergie 07-25 [facility] NO KNOWN Drug Active Univers ALLERGIE Class ity of S [facility] Social History Social Habit Start Date Stop Date Quantity Comments Source Sexual orientation Univer sity of [facility] Exposure to 2021-06-07 2021-07-07 Not sure [facility] SARS-CoV-2 (event) 00:00:00 13:56:00 [facility] Alcohol intake 2020-12-27 2020-12-27 Current University of 00:00:00 00:00:00 non-drinker of [facility] alcohol Branch (finding) History of Social 2020-10-25 2020-10-25 Univers ity of function 00:00:00 00:00:00 [facility] Tobacco use and 2013-11-14 2013-11-14 Smokeless Universit y of exposure 00:00:00 00:00:00 tobacco non-user [facility] Sex Assigned At 2000 2000 Universit y of 00:00:00 00:00:00 [facility] Smoking Status Start Date Stop Date Source Never smoked tobacco [facility] Medications Ordered Filled Start Stop Current Ordering Indication Dosage Frequency Signature Comments Components Source Medication Medication Date Date Medication? Clinician (SIG) Name Name ibuprofen Yes [id number] 800mg Take 1 Univers 800 mg 7-07 tablet by ity of tablet 00:00: mouth [place] 00 every 6 Medical (six) Branch hours as needed for Pain (scale 1-3) for up to 30 doses. ibuprofen Yes [id number] 800mg Take 1 Univers 800 mg 7-07 tablet by ity of tablet 00:00: mouth [place] 00 every 6 Medical (six) Branch hours as needed for Pain (scale 1-3) for up to 30 doses. ibuprofen Yes [id number] 800mg Take 1 Univers 800 mg 7-07 tablet by ity of tablet 00:00: mouth [place] 00 every 6 Medical (six) Branch hours as needed for Pain (scale 1-3) for up to 30 doses. ibuprofen 0 Yes [id number] 800mg Take 1 Univers 800 mg 7-07 tablet by ity of tablet 00:00: mouth [place] 00 every 6 Medical (six) Branch hours as needed for Pain (scale 1-3) for up to 30 doses. ibuprofen 0 Yes [id number] 800mg Take 1 Univers 800 mg 7-07 tablet by ity of tablet 00:00: mouth [place] 00 every 6 Medical (six) Branch hours as needed for Pain (scale 1-3) for up to 30 doses. ibuprofen 0 Yes [id number] 800mg Take 1 Univers 800 mg 7-07 tablet by ity of tablet 00:00: mouth [place] 00 every 6 Medical (six) Branch hours as needed for Pain (scale 1-3) for up to 30 doses. ibuprofen 2020-0 Yes [id number] 800mg Take 1 Univers 800 mg 7-07 tablet by ity of tablet 00:00: mouth [place] 00 every 6 Medical (six) Branch hours as needed for Pain (scale 1-3) for up to 30 doses. ibuprofen 2020-0 Yes [id number] 800mg Take 1 Univers 800 mg 7-07 tablet by ity of tablet 00:00: mouth 00 every 6 Medical (six) Branch hours as needed for Pain (scale 1-3) for up to 30 doses. ibuprofen Yes [id number] 800mg Take 1 Univers 800 mg 7-07 tablet by ity of tablet 00:00: mouth 00 every 6 Medical (six) Branch hours as needed for Pain (scale 1-3) for up to 30 doses. Vital Signs Vital Name Observation Time Observation Value Comments Source Body temperature 2021-07-07 20:13:00 36.06 Annika Univ [facility] Body height 2021-07-07 20:13:00 190.5 cm [facility] Body weight 2021-07-07 20:13:00 171.46 kg [facility] BMI 2021-07-07 20:13:00 47.25 kg/m2 [facility] Procedures This patient has no known procedures. Encounters Start End Encounter Admission Attending Care Care Encounter Source Date/Time Date/Time Type Type Clinicians Facility Department ID 2021-05-05 Emergency [facility] [id number] [facility]05 Emergency [facility] [id number] Univers [facility]:08[facility] 2021-05-04 Emergency [facility] [id number] Univers 06:13:50 [facility] 2021-05-04 Outpatient MICHAEL [facility] MICKEY [id number] Univers 04:21:39 JANINE [facility] 2021-05-03 Emergency [facility] [id number] Univers 20:12:00 [facility] 2020-09-21 Inpatient [facility] [id number] [facility] 11:31:00 [id number] [facility] 2022-04-08 2022-04-08 Outpatient Nicola MOSCOSO [facility] [id number] Univers 10:20:00 10:20:00 ROLANDO [facility] 2022-04-06 2022-04-06 Telephone Gloria [facility] 1.2.840.114 [id number] Univers 00:00:00 00:00:00 [facility] 350.1.13.10 it y of [place] 4.2.7.2.686 [facility] [id number] [facility] PRIMARY & 365 Branch SPECIALTY CARE 2022-01-22 2022-01-22 Telephone JULIANA Padron 1.2.840.114 [id number] Univers 00:00:00 00:00:00 [facility] 350.1.13.10 it y of [place] 4.2.7.2.686 [facility] [phone] [facility] PRIMARY & 365 Branch SPECIALTY CARE 2021-10-11 2021-10-11 Emergency EM Cristhian, [facility] [id number] [facility] 11:16:00 12:58:00 [facility] [id number] [facility] 2021-10-11 2021-10-11 Emergency EM Cristhian, [facility] [id number] [facility] 11:16:00 12:58:00 [facility] 97 [facility] 2021-08-13 2021-08-13 Telephone Michael, [facility] 1.2.840.114 [id number] Univers 00:00:00 00:00:00 Janine SERRA 350.1.13.10 it y of [place] 4.2.7.2.686 [facility] [phone] [facility] 198 Branch 2021-08-13 2021-08-13 Patient Doctor [facility] 1.2.840.114 [id number] Univers 00:00:00 00:00:00 Secure Msg Unassigned, SPECIALTY 350.1.13.10 ity of [place] CARE 4.2.7.2.686 [facility] AT [id number] Wy keerthi [place] [address] [place] [address] 2021-08-01 2021-08-01 Telephone Michael, [place] 1.2.840.114 [id number] Univers 00:00:00 00:00:00 Janine SPRAGUE 350.1.13.10 it y of CARE 4.2.7.2.686 [facility] [id number] Wy keerthi 198 Branch 2021-07-31 2021-07-31 Telephone Michael, [facility] 1.2.840.114 [id number] Univers 00:00:00 00:00:00 Janine PRIMARY 350.1.13.10 it y of [place] 4.[place].2.[place] [id number] Wy dical 198 Branch 2021-07-07 2021-07-07 Office Michael [facility] 1.2.803.404 [id number] Univers 13:40:00 13:50:00 Visit Janine PRIMARY 350.1.13.10 it y of [place] 4.2.[place].2.[place] [id number] Wy dicmn [address] 2021-07-07 2021-07-07 Outpatient R MICHAEL [facility] [id number] Univers 13:40:00 13:40:[address] [facility] 2021-07-07 2021-07-07 Orders Doctor JANINE 1.2.840.114 [id number] Univers 00:00:00 00:00:00 Only Unassigned, JACOB 350.1.13.10 ity of [place] [facility] 4.2.7.2.686 Jeremiah as [id number] [address] 2021-05-21 2021-05-21 Outpatient R NAVNEET [facility] [id number] Univers 09:00:00 09:00:[address] [facility] 2021-05-21 2021-05-21 Case [facility] 1.2.840.114 [id number] Univers 00:00:00 00:00:00 Management Amaris PRIMARY 350.1.13.10 it[place] of C[place] 4.2.[place] [id number] Wy dicmn [address] 2021-05-13 2021-05-13 Case [facility] 1.2.840.114 [id number] Univers 00:00:00 00:00:00 Management Amaris PRIMARY 350.1.13.10 ity of C[place] 4.2.[place] [id number] Wy dicmn [address] 2021-05-06 2021-05-06 Case [facility] 1.2.840.114 [id number] Univers 00:00:00 00:00:00 Management Kate E PRIMARY 350.1.13.10 ity of C[place] 4.2.7.2.[place] [id number] Wy dical 178 Branch 2021-04-30 2021-04-30 Outpatient R NAVNEET [facility] [id number] Univers 08:15:00 09:05:27 MICHEL ity of [facility] 2021-04-30 2021-04-30 Ancillary Donnell Pereasey Alfred [facility] 1.2.84 0.114 [id number] Univers 08:10:26 09:05:27 Visit Michel Laughlin PRIMARY 350.1.13.10 ity of C[place] 4.2.[place].2.[place] [id number] Wy dical 178 Branch 2021-04-30 2021-04-30 Outpatient R [facility] [id number] Univers 08:15:00 08:15:00 ity of [facility] 2021-04-24 2021-04-24 Telephone Victorino [facility] 1.2.096.537 [id number] Univers 00:00:00 00:00:00 Amaris PRIMARY 350.1.13.10 [place] of C[place] 4.2.[place].2.[place] [id number] Wy dical 178 Branch 2021-04-17 2021-04-17 Ancillary Amaris Gleason [facility] 1.2.840.114 [id number] [facility] 13:36:55 14:18:27 Visit Michel Laughlin PRIMARY 350.1.13.10 it[place] of C[place] 4.2.[place].2.[place] [id number] Wy dical 178 Branch 2021-04-10 2021-04-10 [facility] 1.2.840.114 [id number] Univers 13:30:25 14:19:43 Visit Michel Laughlin PRIMARY 350.1.13.10 ity of CARE 4.2.7.2.[place] [id number] Wy dical 178 Branch 2021-04-02 2021-04-02 Ancillary [facility] 1.2.840.114 [id number] Univers 14:39:57 15:54:28 Visit Michel Laughlin PRIMARY 350.1.13.10 ity of CARE 4.2.7.2.[place] [id number] Wy dical [address] 2021-04-02 2021-04-02 Outpatient R NAVNEET [facility] [id number] Univers 14:45:00 14:45:[address] [facility] 2021-03-31 2021-03-31 [facility] 1.2.840.114 [id number] Univers 13:41:34 23:59:00 Encounter Janine PRIMARY 350.1.13.10 ity of C[place] 4.2.[place].2.[place] [id number] Wy dical [address] 2021-03-31 2021-03-31 Office [facility] 1.2.816.402 [id number] Univers 13:20:51 15:03:27 Visit Janine PRIMARY 350.1.13.10 it y of C[place] 4.2.7.2.[place] [id number] Wy dical [address] 2021-03-31 2021-03-31 Outpatient R [facility] [id number] Univers 14:00:00 14:00:[address] [facility] 2021-03-31 2021-03-31 Outpatient R [facility], [facility] [id number] Univers 13:30:00 13:30:[address] [facility] 2021-03-31 2021-03-31 Outpatient R FAILLACE, [facility] [id number] Univers 13:30:00 13:30:[address] [facility] 2021-02-24 2021-02-24 [facility] 1.2.840.114 [id number] Univers 13:31:30 23:59:00 Encounter Janine PRIMARY 350.1.13.10 it[place] of C[place] 4.2.[place].2.[place] [id number] Wy dical [address] 2021-02-24 2021-02-24 Office [facility] 1.2.579.959 [id number] Univers 13:17:21 14:07:52 Visit Janine PRIMARY 350.1.13.10 it y of C[place] 4.2.7.2.[place] [id number] Wy keerthi [address] 2021-02-24 2021-02-24 [facility] [id number] Univers 13:45:00 13:45:00 [facility] 2021-02-24 2021-02-24 Outpatient R [facility] [id number] Univers 13:20:00 13:20:00 JANINE [facility] 2021-01-24 2021-01-24 Orders Doctor JANINE 1.2.840.114 [id number] Univers 00:00:00 00:00:00 Only Unassigned, JACOB 350.1.13.10 ity of [place] [facility] 4.2.7.2.686 Jeremiah as [id number] [address] 2021-01-17 2021-01-17 Telephone [facility] 1.2.840.114 [id number] Univers 00:00:00 00:00:00 Janine PRIMARY 350.1.13.10 it y of C[place] 4.2.7.2.[place] [id number] Wy keerthi [address] 2021-01-15 2021-01-15 [facility] 1.2.840.114 [id number] Univers 14:40:00 23:59:00 Encounter Janine SPECIALTY 350.1.13.10 [place] 4.2.[place]2.[place] AT [id number] Wy lucitavictoria RAEGANY [address] [facility] 2021-01-15 2021-01-15 Office [facility] 1.2.711.420 [id number] Univers 14:30:04 16:08:36 Visit Janine SPECIALTY 350.1.13.10 ity of C[place] 4.2.7.2.[place] [id number] Wy lucitavictoria VICTORY [address] [facility] 2021-01-15 2021-01-15 Outpatient R [facility] [id number] Univers 14:40:00 14:40:00 JANINE ity of [facility] 2021-01-07 2021-01-08 Emergency Julissa, TRAUMA 1.2.240.825 [id number] Univers 20:07:00 03:12:00 Berto FRANK 350.1.13.10 [place] [id number] [facility] [address] 2021-01-07 2021-01-07 Patient [facility] 1.2.016.346 [id number] Univers 00:00:00 00:00:00 Secure Msg Janine SPECIALTY 350.1.13.10 it[place] of C[place] 4.2.7.2.[place] [id number] Wy keerthi MAURO [address] [facility] 2021-01-07 2021-01-07 Patient [facility] 1.2.498.793 [id number] Univers 00:00:00 00:00:00 Secure Msg Janine SPECIALTY 350.1.13.10 it[place] of C[place] 4.2.7.2.[place] [id number] Wy keerthi MAURO [address] [facility] 2020-12-31 2020-12-31 Patient Doctor JANINE 1.2.840.114 [id number] Univers 00:00:00 00:00:00 Secure Msg Unassigned, JACOB 350.1.13.10 ity of [place] [facility] 4.2.7.2.686 Jeremiah as [id number] [facility] [address] 2020-12-30 2020-12-30 Ancillary Amaris Gleason [facility] 1.2.840.114 [id number] Univers 13:43:01 17:00:51 Visit Michel Laughlin PRIMARY 350.1.13.10 ity of C[place] 4.2.7.2.686 [place] JIMENA [id number] Wy keerthi [address] 2020-12-30 2020-12-30 Outpatient R NAVNEET [facility] [id number] Univers 13:45:00 13:45:[address] [facility] 2020-12-30 2020-12-30 Telephone Gloria [facility] 1.2.840.114 [id number] Univers 00:00:00 00:00:00 [facility] 350.1.13.10 it y of [place] 4.2.7.2.686 [facility] [id number] [facility] Primary & 365 Branch Specialty Care 2020-12-27 2020-12-27 Vehicle Glass Technician Lab, [facility] 1.2.840.11 [id number] Univers 14:04:30 14:19:30 Visit Gloria [facility] 350.1.13.10 ity of [place] 4.2.7.2.686 [facility] [id number] [facility] Primary & 357 Branch Specialty Care 2020-12-27 2020-12-27 Office Gloria [facility] 1.2.840.114 [id number] Univers 13:24:42 13:54:42 Visit [facility] 350.1.13.10 it y of [place] 4.2.7.2.686 [facility] [id number] [facility] Primary & 365 Branch Specialty Care 2020-12-27 2020-12-27 Outpatient R GLORIA [facility] [id number] Univers 13:30:00 13:30:00 [facility] ity [facility] 2020-12-27 2020-12-27 Telephone [facility] 1.2.840.114 [id number] Univers 00:00:00 00:00:00 Janine SPECIALTY 350.1.13.10 ity of CARE 4.2.7.2.686 [facility] AT [phone] Wy lucitavictoria [address] 2020-12-20 2020-12-20 Telephone [facility] 1.2.840.114 [id number] Univers 00:00:00 00:00:00 Janine SPECIALTY 350.1.13.10 ity of CARE 4.2.7.2.686 [facility] CENTER AT [id number] Wy keerthi [address] 2020-12-19 2020-12-19 Telephone [facility] 1.2.840.114 [id number] Univers 00:00:00 00:00:00 Janine SPECIALTY 350.1.13.10 [place] 4.2.[place].2.[place] [id number] Wy keerthi Donnelly [facility] 2020-12-18 2020-12-18 Office [facility] 1.2.110.451 [id number] Univers 15:55:56 17:12:09 Visit Janine SPECIALTY 350.1.13.10 ity of C[place] 4.2.7.2.[place] [id number] Wy keerthi MAURO [address] [place] [address] 2020-12-18 2020-12-18 Outpatient R FAILLACE, [facility] [id number] Univers 16:10:00 16:10:[address] [facility] 2020-12-16 2020-12-16 Emergency Mauro, TRAUMA 1.2.661.980 [id number] Univers 15:50:00 19:43:00 Corbin Valle CENTER 350.1.13.10 [place] [id number] [address] 2020-12-11 2020-12-11 Telephone [facility] 1.2.840.114 [id number] Univers 00:00:00 00:00:00 Janine SPECIALTY 350.1.13.10 it[place] of C[place] 4.2.7.2.686 [place] [id number] Wy keerthi MAURO [address] [place] [address] 2020-12-04 2020-12-04 Outpatient R FAILLACE, [facility] [id number] Univers 16:20:00 16:20:00 JANINE [facility] 2020-11-28 2020-11-28 Telephone [facility] 1.2.840.114 [id number] Univers 00:00:00 00:00:00 Janine PRIMARY 350.1.13.10 it y of [place] 4.2.7.2.686 [place]IG [id number] Wy lucita[address] 2020-11-27 2020-11-27 Patient Steve [facility] 1.2.793.236 [id number] Univers 00:00:00 00:00:00 Secure Mslogan Borges SPECIALTY 350.1.13.10 it[place] 4.2.7.2.[place] [phone] Wy keerthi MAURO [address] [facility] 2020-11-05 2020-11-05 Telephone [facility] 1.2.840.114 [id number] Univers 00:00:00 00:00:00 Janine PRIMARY 350.1.13.10 it y of C[place] 4.2.7.2.[place] [id number] [address] 2020-11-04 2020-11-04 [facility] 1.2.840.114 [id number] Univers 13:00:14 23:59:00 Encounter Janine PRIMARY 350.1.13.10 it[place] of C[place] 4.2.7.2.[place] [id number] Wy keerthi [address] 2020-11-04 2020-11-04 Office [facility] 1.2.438.690 [id number] Univers 12:42:49 14:23:19 Visit Janine PRIMARY 350.1.13.10 it y of C[place] 4.2.7.2.[place] [id number] [address] 2020-11-04 2020-11-04 Outpatient R [facility] [id number] Univers 13:15:00 13:15:00 [facility] 2020-11-04 2020-11-04 Outpatient R [facility] [id number] Univers 13:00:00 13:00:00 [facility] 2020-11-04 2020-11-04 Telephone [facility] 1.2.840.114 [id number] Univers 00:00:00 00:00:00 Janine PRIMARY 350.1.13.10 it y of C[place] 4.2.7.2.[place] [id number] Wy lucita[address] 2020-10-29 2020-10-29 Telephone [facility] 1.2.840.114 [id number] Univers 00:00:00 00:00:00 Janine PRIMARY 350.1.13.10 it y of C[place] 4.2.7.2.[place] [id number] Wy keerthi [address] 2020-10-25 2020-10-25 [facility] 1.2.840.114 [id number] Univers 07:22:00 16:08:00 Encounter [facility] 350.1.13.10 it[place]2.[place].2.686 [place] [facility] [id number] [address] ([facility]) 2020-10-25 2020-10-25 Surgery [facility] 1.2.419.770 [id number] Univers 08:56:00 11:55:00 Janine SPECIALTY 350.1.13.10 ity of C[place] 4.2.7.2.686 [place] [id number] Wy keerthi RAEGAN [address] [facility] 2020-10-25 2020-10-25 [facility] [id number] Univers 08:58:00 08:58:00 [facility] 2020-10-25 2020-10-25 Orders Doctor JANINE 1.2.840.114 [id number] Univers 00:00:00 00:00:00 Only Unassigned, JACOB 350.1.13.10 ity of [place] [facility] 4.2.7.2.686 Jeremiah as [id number] [facility] [address] 2020-10-24 2020-10-24 Laboratory Only, [facility] Test [facility] 1.2.840. 114 [id number] Univers 15:04:09 15:19:09 Only Janine Rodriguez 350.1.13.10 ity of C[place] 4.2.7.2.[place] [id number] Wy keerthi MAURO [address] [facility] 2020-10-24 2020-10-24 Outpatient R MICHAEL [facility] [id number] Univers 14:45:00 14:45:00 JANINE [facility] 2020-10-21 2020-10-21 Letter [facility] 1.2.915.013 [id number] Univers 00:00:00 00:00:00 (Out) Janine PRIMARY 350.1.13.10 it y of C[place] 4.2.7.2.[place] [id number] Wy keerthi [address] 2020-10-21 2020-10-21 Patient Failtxce, [facility] 1.2.310.426 [id number] Univers 00:00:00 00:00:00 Secure Msg Janine PRIMARY 350.1.13.10 it[place] of C[place] 4.2.7.2.[place] [id number] Wy keerthi [address] 2020-10-11 2020-10-11 Telephone [facility], [facility] 1.2.840.114 [id number] Univers 00:00:00 00:00:00 Janine SPECIALTY 350.1.13.10 ity of C[place].2.7.2.[place] AT [id number] Wy keerthi MAURO [address] [place] [address] 2020-10-07 2020-10-07 Outpatient R FAILCECILIO, [facility] [id number] Univers 10:50:00 10:50:00 [facility] 2020-10-07 2020-10-07 Outpatient R FAILLACE, [facility] [id number] Univers 10:50:00 10:50:00 [facility] 2020-10-04 2020-10-04 Telephone [facility] 1.2.840.114 [id number] Univers 00:00:00 00:00:00 Janine SPECIALTY 350.1.13.10 it[place] of [place]2.7.2.[place] [id number] Wy keerthi MAURO [address] [facility] 2020-09-23 2020-09-23 Laboratory Only, Pcp Test [facility] 1.2.840. 114 [id number] Univers 13:50:07 14:05:07 Only Saulkyle, Janine PRIMARY 350.1.13.10 ity of C[place] 4.2.7.2.[place] [id number] Wy lucitaal [address] 2020-09-23 2020-09-23 Outpatient R FAILLACE, [facility] [id number] Univers 14:00:00 14:00:[address] [facility] 2020-09-17 2020-09-17 Emergency TRAUMA 1.2.256.169 [id number] Univers 07:11:00 07:30:00 CENTER 350.1.13.10 it [place]2.7.2.[place] [id number] [facility] [address] 2020-09-17 2020-09-17 Emergency TRAUMA 1.2.056.209 [id number] 07:11:00 07:30:00 CENTER 350.1.13.10 4.2.7.2.686 [id number] 2020-08-09 2020-08-09 [facility] 1.2.840.114 [id number] [facility] 00:00:00 00:00:00 Janine PRIMARY 350.1.13.10 [place] [id number] [facility] [address] 2020-08-09 2020-08-09 [facility] 1.2.840.114 [id number] 00:00:00 00:00:00 Janine PRIMARY 350.1.13.10 CARE 4.2.7.2.686 PAVILLION [id number] 198 2020-08-05 2020-08-05 [facility] [id number] [facility] 13:00:11 23:59:[address] [facility] 2020-08-05 2020-08-05 [facility] 1.2.840.114 [id number] Univers 13:00:00 23:59:00 Encounter Janine PRIMARY 350.1.13.10 [place] [id number] Wy [facility] [address] 2020-08-05 2020-08-05 [facility] 1.2.840.114 [id number] 13:00:00 23:59:00 Encounter Janine PRIMARY 350.1.13.10 CARE 4.2.7.2.686 PAVILLION [id number] [id number] 2020-08-05 2020-08-05 Outpatient R NAVNEET [facility] [id number] Univers 15:00:00 15:00:[address] [facility] 2020-08-05 2020-08-05 Outpatient Nicola RODRIGUEZ [facility] [id number] Univers 13:20:00 13:20:[address] [facility] 2020-08-05 2020-08-05 Office [facility] 1.2.011.982 [id number] Univers 12:56:00 13:06:00 Visit Janine PRIMARY 350.1.13.10 [place] [id number] [facility] [address] 2020-08-05 2020-08-05 Office [facility] 1.2.617.392 [id number] 12:56:00 13:06:00 Visit Janine PRIMARY 350.1.13.10 CARE 4.2.7.2.686 PAVILLION [id number] [facility] 2020-08-05 2020-08-05 [facility] [id number] Univers 00:00:00 00:00:00 JANINE [facility] 2020-08-04 2020-08-04 Abstract Hafsa [facility] 1.2.840.114 [id number] Univers 00:00:00 00:00:00 Nick PRIMARY 350.1.13.10 [place] [id number] Wy dical [address] 2020-08-01 2020-08-01 Emergency Vasut, TRAUMA 1.2.944.482 [id number] Univers 07:52:00 13:28:00 Rodney J [place] 350.1.13.10 [place] [id number] [facility] [address] 2020-07-24 2020-07-24 Ancillary Kate Perea [facility] 1.2.84 0.114 [id number] Univers 14:39:10 15:24:10 Visit Michel Laughlin A PRIMARY 350.1.13.10 [place] [id number] Wy dical [address] 2020-07-24 2020-07-24 Outpatient R [facility] [id number] Univers 15:00:00 15:00:00 ity of [facility] 2020-07-08 2020-07-08 Ancillary Eliazar, Kate Simon [facility] 1.2.84 0.114 [id number] Univers 12:53:01 13:38:01 Visit Michel Laughlin PRIMARY 350.1.13.10 [place] [id number] Wy dical [address] 2020-07-08 2020-07-08 Outpatient [facility] [id number] Univers 13:00:00 13:00:00 MICHEL ity of [facility] 2020-06-26 2020-06-26 Case Eliazar [facility] 1.2.840.114 [id number] Univers 00:00:00 00:00:00 Management Kate Simon PRIMARY 350.1.13.10 [place] [id number] Wy dical [address] 2020-06-19 2020-06-19 Ancillary Eliazar, Kate Simon [facility] 1.2.84 0.114 [id number] Univers 13:54:01 14:39:01 Visit Michel Laughlin PRIMARY 350.1.13.10 [place] [id number] Wy dical [address] 2020-06-12 2020-06-12 Outpatient R [facility] [id number] Univers 13:45:00 13:45:00 ity of [facility] 2020-06-11 2020-06-11 Ancillary Amaris Gleason [facility] 1.2.840.114 [id number] Univers 14:27:57 15:12:57 Visit Michel Laughlin PRIMARY 350.1.13.10 [place] [id number] Wy dical [address] 2020-06-06 2020-06-06 Ancillary Amaris Gleason [facility] 1.2.840.114 [id number] Univers 15:29:18 16:14:18 Visit Michel Laguhlin PRIMARY 350.1.13.10 it[place] [id number] Wy dical [address] 2020-05-29 2020-05-29 Ancillary Amrais Gleason [facility] 1.2.840.114 [id number] Univers 13:59:22 14:44:22 Visit Michel Laughlin PRIMARY 350.1.13.10 [place] [id number] Wy dicmn [address] 2020-05-29 2020-05-29 Outpatient R [facility] [id number] Univers 14:00:00 14:00:[address] [facility] 2020-05-13 2020-05-13 [facility] 1.2.840.114 [id number] Univers 09:02:44 23:59:00 Encounter Janine PRIMARY 350.1.13.10 [place] [id number] Wy dical [address] 2020-05-13 2020-05-13 Ancillary Eliazar Kate Alfred [facility] 1.2.84 0.114 [id number] Univers 11:07:13 11:52:13 Visit Michel Laughlin PRIMARY 350.1.13.10 it[place] [id number] Wy dical [address] 2020-05-13 2020-05-13 [facility] [id number] Univers 11:30:00 11:30:[address] [facility] 2020-05-13 2020-05-13 Outpatient R [facility] [id number] Univers 10:00:00 10:00:[address] [facility] 2020-05-13 2020-05-13 Office [facility] 1.2.633.373 [id number] Univers 08:59:24 09:19:24 Visit Janine PRIMARY 350.1.13.10 it y of CARE 4.2.7.2.686 [place] [id number] Wy dical [address] 2020-05-13 2020-05-13 Outpatient R MICHAEL, [facility] [id number] Univers 00:00:00 00:00:00 JANINE ity of [facility] 2020-05-12 2020-05-12 Abstract Amadafealfred, [facility] 1.2.676.080 [id number] Univers 00:00:00 00:00:00 Angel SPR[place] 350.1.13.10 ity of CARE 4.2.7.2.686 [place] [id number] Wy dical [address] 2020-05-07 2020-05-07 Orders Doctor JANINE 1.2.840.114 [id number] Univers 00:00:00 00:00:00 Only Unassigned, JACOB 350.1.13.10 ity of [place] [facility] 4.2.7.2.686 Ejremiah as [id number] [address] Results Test Description Test Time Test Comments Results Result [facility] e Comments - XR FOOT 3 + V LT 2021-10-11 12:05:00 [facility] [facility] : 2000 Sex: M FAX: Cherelle Morrow MD [phone] [place]: [address] St: REG Name: VALENCIA HUNG [facility] : 2000 Age/S: 21/M [address] [facility] Unit #: [id number] Loc: [place], [place]: [place] [address] Acct: [id number] Dis Date: Status: REG ER PHONE #: [phone] Exam Date: 10/11/2021 1202 FAX #: [phone] Reason: pain, catfish stinger medial forefoot EXAMS: CPT CODE: [id number] XR FOOT 3 + [place] [address]149 B2 Exam: - XR FOOT 3 + V LT DATE:10/11/2021 11:32 AM INDICATION:pain, catfish stinger medial forefoot COMPARISON:None DISCUSSION: No acute fracture or dislocation. No significant soft tissue abnormality. No radiopaque foreign body. IMPRESSION: No acute osseous abnormality. at 1205 Reported and signed by: ERICH MAXWELL MD CC: Cherelle Morrow MD Technologist: URVASHI Drummond Trnscrd Date/Time/By: 10/11/2021 (1207) : By: KarenMOP PAGE 1 Signed Report FAX: Cherelle Morrow MD [phone] [place]: St: [facility] Name: VALENCIA HUNG [facility] : 2000 Age/S: 21/M [address] [facility] Unit #: [id number] Loc: [place], [place]: [place] [address] Acct: [id number] Dis Date: Status: REG ER PHONE #: [phone] Exam Date: 10/11/2021 1202 FAX #: [phone] Reason: pain, catfish stinger medial forefoot EXAMS: CPT CODE: [id number] XR FOOT 3 + V LT 08881 (Continued) Orig Print D/T: S: 10/11/2021 (1208) PAGE 2 Signed Report - US ABDOMEN LTD 2020-09-21 15:45:00 [facility] [place] [facility] : 2000 Sex: M FAX: Jamar Beck DO [phone] [place]: St: REG FAX: Y Waylon Holley [phone] Name: LUCY HUNGAN [facility] : 2000 Age/S: 20/M [address] [facility] Unit #: [id number] Loc: [address] [place], [place] 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 [address] Acct: [id number] Dis Date: Status: REG ER PHONE #: [phone] Exam Date: 09/21/2020 1602 FAX #: [phone] Reason: RUQ pain EXAMS: CPT CODE: [id number] US ABDOMEN LTD 93953 C3 TIME OF STUDY: 09/21/2020 1:49 PM [...] DO; Waylon Holley NP Technologist: ARMANDO YEE Trnsdrd Date/Time/By: 09/21/2020 (3398) : By: [email or web address] PAGE 1 Signed Report FAX: Jamar Beck DO [phone] [place]: St: REG FAX: Waylon Melo [phone] Name: VALENCIA HUNG [facility] : 2000 Age/S: 20/M [address] [facility] Unit #: [id number] Loc: [address] [place], [place]: [place] [address] Acct: [id number] Dis Date: Status: REG ER PHONE #: [phone] Exam Date: 09/21/2020 1602 FAX #: [phone] Reason: RUQ pain EXAMS: CPT CODE: [id number] US ABDOMEN LTD 71528 (Continued) Orig Print D/T: S: 09/21/2020 (8236) PAGE 2 Signed Report COMPREHENSIVE METABOLIC PANEL [...] = ALKP) 97 Units/L 50.0-136 .0 N [id number] 13:20:00 Test Item Value Reference Range Interpretation Comments LIPASE (test code = LIP) 79 Units/L 65.0-230.0 N [id number] 13:20:00 Test Item Value Reference Range Interpretation Comments TROPONIN-I (test <0.02 NG/ML 0.00-0.06 N REFERENCE R ARNOLD code = TROPI) TROPONIN I HEA LTHY INDIVIDUALS: <0 .06 ng/mL R/O ISCHE SUNDEEP: 0.07 - 0.60 ng/ mL CUT-OFF RANGE F OR AMI: 0.60 - 1.5 ng/m L - CT ABD PELVIS W/O [id number] 13:13:00 [facility] [place] [facility] : 2000 Sex: M FAX: Jamar Beck DO [phone] [place]: St: REG FAX: Waylon Melo [phone] Name: [facility]UC[facility]GAN [facility] [place]: 2000 Age/S: 20/M [address] [facility] Unit: [id number] Loc: [address] [place], [place] 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 No radiopaque calculi areseen in the gallbladder. The pancreas, kidneys, adrenal [...] steatosis. 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 CC: Jamar Holley NP Technologist: NINA CANSECO Trnscrd Dt/Tm: 09/21/2020 (1313) [email or web address] Orig Print D/T: S: 09/21/2020 (1316 PAGE 2Signed ReportCOMPREHENSIVE METABOLIC PANEL 2020-09-21 13:11:00 Test Item [...] TOTAL (test Units/L 50.0-136.0 code = ALKP) [id number] 13:11:00 Test Item Value Reference Range Interpretation Comments LIPASE (test code = LIP) Units/L 65.0-230.0 [id number] 13:11:00 Test Item Value Reference Range Interpretation Comments TROPONIN-I (test code = TROPI) NG/ML 0.00-0.06 - XR CHEST 1 [id number] 13:08:00 [facility] [place] [facility] : 2000 Sex: M FAX: Jamar Beck DO [phone] [place]: St: REG FAX: Waylon Melo [phone] Name: VALENCIA HUNG [facility] : 2000 Age/S: 20/M [address] [facility] Unit #: [id number] Loc: [address] 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 Electr onically Signed by NELY MEYER M.D. on 09/21/2020 at 1308 Reported and signed by:NELY MEYER M.D. CC: Jamar Beck ; Waylon Holley NP Technologist: KITTY Barakat Date/Time/By: 09/21/2020 (7518) : By: [email or web address] PAGE 1 Signed Report FAX: Jamar Beck DO [phone] [place]: St: REG FAX: Waylon Melo [phone] Name: VALENCIA HUNG [facility] : 2000 Age/S: 20/M [address] [facility] Unit #: [id number] Loc: [address] Phys: Waylon Radford PAINTER ASSISTANT [address] Acct: [id number] Dis Date: Status: REG ER PHONE #: [phone] Exam Date: 09/21/2020 1301 FAX #: [phone] Reason: cp EXAMS: CPT CODE: [id number] XR CHEST 1 V 26929 (Continued) Orig Print D/T: S: 09/21/2020 (1311) PAGE 2 Signed ReportDRUGS OF ABUSE SCREEN [id number] 13:07:00 Test Item Value Reference Interpretation Comments [...] = [place]) concentrati on: 300 ng/mL URINALYSIS [id number] 13:05:00 Test Item Value Reference Range Interpretation [...] (test code = TRACE NONE BACU) URINALYSIS [id number] 13:04:00 Test Item Value Reference Range Interpretation [...] (test code = NONE BACU) CBC W/AUTO [id number] 12:58:00 Test Item Value Reference Range Interpretation [...]
[2023-05-20 17:55] VITALS: TEMP 97.8; O2SAT 100
[2023-05-20 17:56] VITALS: BP 129/72
[2023-05-20] MEDS ORDERED: KETOROLAC 30 MG/ML INJ ONE (17:58)
[2023-05-20] MEDS ORDERED: DIAZEPAM 5 MG TABLET ONE (17:58)
== END 2023-05-20 17:50 | disposition home or self-care (01) ==
LOC: ER 17:14
DX: M54.50 Low back pain, unspecified (principal)
CPT/HCPCS: 96372; 99284

== ENCOUNTER → 2023-07-04 | Emergency (ER) | payer BC ==
[~2023-07-04] MED LIST: IBUPROFEN 400 MG TAB ONE
--- OUTSIDE RECORDS SUMMARY | 2023-07-04 22:49 | XMS REPORT | Continuity of Care Document ---
Author Name Unknown Address [address] [facility] [place] [address] [facility] thconnect Address [address] [facility] [address] [facility] [place] [address] Care Team Providers Care Telecommunications Repairer Name Role Phone Campbell Castro Primary Care Physician [phone] JANINE RODRIGUEZ Attending Clinician Unavailable ROLANDO MOSCOSO Attending Clinician Unavailab Campbell Webb Attending Clinician [phone] Janine Rodriguez MD Attending Clinician [phone] Doctor Unassigned, [place] Attending Clinician U NEVA Clifton Attending Clinician Unavailable Amaris Gleason OT Attending Clinician Unavailable Kate Perea OT Attending Clinician Unavail able Neva Laughlin MD Attending Clinician [phone] Berto Costa MD Attending Clinician [phone] Lab, Jeremiah Cbc Attending Clinician Unavailable CAMPBELL PADRON Attending Clinician Unavailab Corbin Kevin APN Attending Clinician [phone] Angeline Wilson LVN Attending Clinician Un available Only, Lcc Test Attending Clinician Unavailable Only, Pcp Test Attending Clinician Unavailable Nick Pereyra MD Attending Clinician [phone] Rodney Larsen MD Attending Clinician [phone] Angel Torres MD Attending Clinician JANINE RODRIGUEZ Admitting Clinician Unavailable Janine Rodriguez MD Admitting Clinician Payers Payer Name Policy Type Policy Number Effective Date Expirati on Date Source [facility] [id number] 2020 00:00:00 Problems Condition Name Condition Details Condition Category Status Onset Date Resolution Date Last Treatment Date Treating Clinician Comments Source Morbid obesity with body mass index of 40.0-49.9 Morbid obesity with body mass index of 40.0-49.9 Disease Active 10-25 00:00: 00 [facility] Attention deficit hyperactiv ity disorder (ADHD), predominan tly inattentiv e type Attention deficit hyperactiv ity disorder (ADHD), predominan tly inattentiv e type Disease Active 07-10 00:00: 00 [facility] Obesity Obesity Disease Active 07-10 00:00: 00 [facility] Essential hypertensi on Essential hypertensi on Disease Active 07-10 00:00: 00 [facility] Allergies, Adverse Reactions, Alerts Allergy Name Allergy Type Status Severity Reaction(s) Onset Date Inactive Date Treating Clinician Comments Source NO KNOWN ALLERGIE S Drug Class Active [facility] Social History Social Habit Start Date Stop Date Quantity Comments Source Sexual orientation U [facility] Exposure to SARS-CoV-2 (event) 2021-06-07 00:00:00 2021-07-07 13:56:00 Not sure [facility] Alcohol intake 2020-12-27 00:00:00 2020-12-27 00:00:00 Current non-drinker of alcohol (finding) [facility] History of Social function 2020-10-25 00:00:00 2020-10-25 00:00:00 [facility] Tobacco use and exposure 2013-11-14 00:00:00 2013-11-14 00:00:00 Smokeless tobacco non-user [facility] Sex Assigned At 2000 00:00:00 2000 00:00:00 [facility] Smoking Status Start Date Stop Date Source Never smoked tobacco [facility] Medications Ordered Medication Name Filled Medication Name Start Date Stop Date Current Medication? Ordering Clinician Indication Dosage Frequency Signature (SIG) Comments Components Source ibuprofen 800 mg tablet 01-08 00:00: 00 Yes [id number] 800mg Take 1 tablet by mouth every 6 (six) hours as needed for Pain (scale 1-3) for up to 30 doses. [facility] ibuprofen 800 mg tablet 01-08 00:00: 00 Yes [id number] 800mg Take 1 tablet by mouth every 6 (six) hours as needed for Pain (scale 1-3) for up to 30 doses. [facility] ibuprofen 800 mg tablet 01-08 00:00: 00 Yes [id number] 800mg Take 1 tablet by mouth every 6 (six) hours as needed for Pain (scale 1-3) for up to 30 doses. [facility] ibuprofen 800 mg tablet 01-08 00:00: 00 Yes [id number] 800mg Take 1 tablet by mouth every 6 (six) hours as needed for Pain (scale 1-3) for up to 30 doses. [facility] ibuprofen 800 mg tablet 01-08 00:00: 00 Yes [id number] 800mg Take 1 tablet by mouth every 6 (six) hours as needed for Pain (scale 1-3) for up to 30 doses. [facility] ibuprofen 800 mg tablet 01-08 00:00: 00 Yes [id number] 800mg Take 1 tablet by mouth every 6 (six) hours as needed for Pain (scale 1-3) for up to 30 doses. [facility] ibuprofen 800 mg tablet 01-08 00:00: 00 Yes [id number] 800mg Take 1 tablet by mouth every 6 (six) hours as needed for Pain (scale 1-3) for up to 30 doses. [facility] ibuprofen 800 mg tablet 01-08 00:00: 00 Yes [id number] 800mg Take 1 tablet by mouth every 6 (six) hours as needed for Pain (scale 1-3) for up to 30 doses. [facility] ibuprofen 800 mg tablet 01-08 00:00: 00 Yes [id number] 800mg Take 1 tablet by mouth every 6 (six) hours as needed for Pain (scale 1-3) for up to 30 doses. [facility] Vital Signs Vital Name Observation Time Observation Value Comments Delroy sousa Body temperature 2021-07-07 20:13:00 36.06 Annika [facility] Body height 2021-07-07 20:13:00 190.5 cm [facility] Body weight 2021-07-07 20:13:00 171.46 kg [facility] BMI 2021-07-07 20:13:00 47.25 kg/m2 [facility] Encounters Start Date/Time End Date/Time Encounter Type Admission Type Attending Clinicians Care Facility Care Department Encounter ID Source 2021-05-05 06:25:20 Emergency [facility] [id number] [facility] 2021-05-05 01:08:17 Emergency [facility] [id number] [facility] 2021-05-04 06:13:50 Emergency [facility] [id number] [facility] 2021-05-04 04:21:39 Outpatient MICHAEL JANINE [facility] SOR [id number] [facility] 2021-05-03 20:12:00 Emergency [facility] [id number] [facility] 2022-04-08 10:20:00 2022-04-08 10:20:00 Outpatient ROLANDO DE LUNA [facility] [id number] [facility] 2022-04-06 00:00:00 2022-04-06 00:00:[facility] 1..114 350.1.13.10 4.2.7.2.686 [id number] [facility] 2022-01-22 00:00:00 2022-01-22 00:00:00 Telephone Vito [facility] PRIMARY & SPECIALTY CARE 1.2840.114 350.1.13.10 4.2.7.2.686 [id number] [facility] 2021-08-13 00:00:00 2021-08-13 00:00:00 Telephone Janine Rodriguez [facility] 1.2.840.114 350.1.13.10 4.2.7.2.686 [id number] [facility] 2021-08-13 00:00:00 2021-08-13 00:00:00 Patient Secure Msg Doctor Unassigned, [place] [facility] 1.2.840.114 350.1.13.10 4.2.7.2.686 [id number] [facility] 2021-08-01 00:00:00 2021-08-01 00:00:00 Telephone Janine Rodriguez [facility]IMARY [facility]ARE [facility] 1.2.840.114 350.1.13.10 4.2.7.2.686 [id number] [facility] 2021-07-31 00:00:00 2021-07-31 00:00:00 Telephone Janine Rodriguez [facility]AV[facility]ONY 1.2.840.114 350.1.13.10 4.2.7.2.686 [id number] [facility] 2021-07-07 13:40:00 2021-07-07 13:50:00 Office Visit Janine Rodriguez [facility] PRIMARY [facility] PAV[facility]THONY 1.2.840.114 350.1.13.10 4.2.7.2.686 [id number] [facility] 2021-07-07 13:40:00 2021-07-07 13:40:00 Outpatient R JANINE ORDRIGUEZ [facility] [id number] [facility] 2021-07-07 00:00:00 2021-07-07 00:00:00 Orders Only Doctor Unassigned, [place] [facility] 1.2.840.114 350.1.13.10 4.2.7.2.686 [id number] [facility] 2021-05-21 09:00:00 2021-05-21 09:00:00 Outpatient NEVA FLYNN [facility] [id number] [facility] 2021-05-21 00:00:00 2021-05-21 00:00:00 Case Management Amaris Gleason [facility] PAV[facility]ION 1.2.840.114 350.1.13.10 4.2.7.2.686 [id number] [facility] 2021-05-13 00:00:00 2021-05-13 00:00:00 Case Management Amaris Gleason [facility] PRIMARY CARE PAVILLION 1.2.840.114 350.1.13.10 4.2.7.2.686 [id number] [facility] 2021-05-06 00:00:00 2021-05-06 00:00:00 Case Management Kate Perea [facility] PRIMARY CARE PAVILLION 1.2.840.114 350.1.13.10 4.2.7.2.686 [id number] [facility] 2021-04-30 08:15:00 2021-04-30 09:05:27 Outpatient NEVA FLYNN [facility] [id number] [facility] 2021-04-30 08:10:26 2021-04-30 09:05:27 Ancillary Visit Kate Perea Brian A [facility] PAVILLION 1.2.840.114 350.1.13.10 4.2.7.2.686 [id number] [facility] 2021-04-30 08:15:00 2021-04-30 08:15:00 Outpatient R [facility] [id number] [facility] 2021-04-24 00:00:00 2021-04-24 00:00:00 Telephone Amaris Gleason [facility] PRIMARY CARE PAVILLION 1.2.840.114 350.1.13.10 4.2.7.2.686 [id number] [facility] 2021-04-17 13:36:55 2021-04-17 14:18:27 Ancillary Visit Amaris Gleason Brian A [facility] PRIMARY CARE PAVILLION 1.2.840.114 350.1.13.10 4.2.7.2.686 [id number] [facility] 2021-04-10 13:30:25 2021-04-10 14:19:43 Ancillary Visit Amaris Gleason LaughlinNeva [facility] 1.2.840.114 350.1.13.10 4.2.7.2.686 [id number] [facility] 2021-04-02 14:39:57 2021-04-02 15:54:28 Ancillary Visit Amaris Gleason LaughlinNeva [facility] 1.2.840.114 350.1.13.10 4.2.7.2.686 [id number] [facility] 2021-04-02 14:45:00 2021-04-02 14:45:00 Outpatient Nicola LAUGHLIN NEVA [facility] [id number] [facility] 2021-03-31 13:41:34 2021-03-31 23:59:00 Hospital Encounter Janine Rodriguez [facility] PRIMARY C[facility] PAVILLION 1.2.840.114 350.1.13.10 4.2.7.2.686 [id number] [facility] 2021-03-31 13:20:51 2021-03-31 15:03:27 Office Visit Janine Rodriguez [facility] PRIMARY CARE PAVILLION 1.2.840.114 350.1.13.10 4.2.7.2.686 [id number] [facility] 2021-03-31 14:00:00 2021-03-31 14:00:00 Outpatient R JANINE RODRIGUEZ [facility] [id number] [facility] 2021-03-31 13:30:00 2021-03-31 13:30:00 Outpatient R JANINE RODRIGUEZ [facility] [id number] [facility] 2021-03-31 13:30:00 2021-03-31 13:30:00 Outpatient R JANINE RODRIGUEZ [facility] [id number] [facility] 2021-02-24 13:31:30 2021-02-24 23:59:00 Hospital Encounter Janine Rodriguez [facility] 1.2.840.114 350.1.13.10 4.2.7.2.686 [id number] [facility] 2021-02-24 13:17:21 2021-02-24 14:07:52 Office Visit Janine Rodriguez [facility] PRIMARY [facility] 1.2.840.114 350.1.13.10 4.2.7.2.686 [id number] [facility] 2021-02-24 13:45:00 2021-02-24 13:45:00 Outpatient R JANINE RODRIGUEZ [facility] [id number] [facility] 2021-02-24 13:20:00 2021-02-24 13:20:00 Outpatient R JANINE RODRIGUEZ [facility] [id number] [facility] 2021-01-24 00:00:00 2021-01-24 00:00:00 Orders Only Doctor Unassigned, [place] [facility] 1.2.840.114 350.1.13.10 4.2.7.2.686 [id number] [facility] 2021-01-17 00:00:00 2021-01-17 00:00:00 Telephone Michael [facility] PRIMARY CARE PAVILLION 1.2.840.114 350.1.13.10 4.2.7.2.686 [id number] [facility] 2021-01-15 14:40:00 2021-01-15 23:59:00 [facility] 1.2.840.114 350.1.13.10 4.2.7.2.686 [id number] [facility] 2021-01-15 14:30:04 2021-01-15 16:08:36 Office [facility] 1.2840.114 350.1.13.10 4.2.7.2.686 [id number] [facility] 2021-01-15 14:40:00 2021-01-15 14:40:00 Outpatient R JANINE RODRIGUEZ [facility] [id number] [facility] 2021-01-07 20:07:00 2021-01-08 03:12:00 Emergency JulissaBerto [facility] 1.2840.114 350.1.13.10 4.2.7.2.686 [id number] [facility] 2021-01-07 00:00:00 2021-01-07 00:00:00 Patient Secure Msg [facility] 1.2.840.114 350.1.13.10 4.2.7.2.686 [id number] [facility] 2021-01-07 00:00:00 2021-01-07 00:00:00 Patient Secure Msg [facility] 1.2.840.114 350.1.13.10 4.2.7.2.686 [id number] [facility] 2020-12-31 00:00:00 2020-12-31 00:00:00 Patient Secure Msg Doctor Unassigned, [place] [facility] 1.2.840.114 350.1.13.10 4.2.7.2.686 [id number] [facility] 2020-12-30 13:43:01 2020-12-30 17:00:51 Ancillary Visit Amaris Gleason Brian A [facility] PRIMARY CARE PAVILLION 1.2.840.114 350.1.13.10 4.2.7.2.686 [id number] [facility] 2020-12-30 13:45:00 2020-12-30 13:45:00 Outpatient NEVA FLYNN [facility] [id number] [facility] 2020-12-30 00:00:00 2020-12-30 00:00:00 Telephone Vito [facility] Primary & Specialty Care 1.2.840.114 350.1.13.10 4.2.7.2.686 [id number] [facility] 2020-12-27 14:04:30 2020-12-27 14:19:30 Engineering Design Manager Visit Nancy, Jeremiah Padron [facility] Primary & Specialty Care 1.2.840.114 350.1.13.10 4.2.7.2.686 [id number] [facility] 2020-12-27 13:24:42 2020-12-27 13:54:42 Office Visit Vito [facility] Care 1.2.840.114 350.1.13.10 4.2.7.2.686 [id number] [facility] 2020-12-27 13:30:00 2020-12-27 13:30:00 [facility] [id number] [facility] 2020-12-27 00:00:00 2020-12-27 00:00:00 Telephone Janine Rodriguez [facility] SPECIALTY CARE [place] [facility] 1.2.840.114 350.1.13.10 4.2.7.2.686 [id number] [facility] 2020-12-20 00:00:00 2020-12-20 00:00:00 [facility] 1.2.840.114 350.1.13.10 4.2.7.2.686 [id number] [facility] 2020-12-19 00:00:00 2020-12-19 00:00:[address] [facility] 1.2.840.114 350.1.13.10 4.2.7.2.686 [id number] [facility] 2020-12-18 15:55:56 2020-12-18 17:12:09 Office Visit Janine Rodriguez [facility] 1.2.840.114 350.1.13.10 4.2.7.2.686 [id number] [facility] 2020-12-18 16:10:00 2020-12-18 16:10:00 Outpatient R JANINE RODRIGUEZ [facility] [id number] [facility] 2020-12-16 15:50:00 2020-12-16 19:43:00 Emergency Corbin Mauro [facility] 1.2.840.114 350.1.13.10 4.2.7.2.686 [id number] [facility] 2020-12-11 00:00:00 2020-12-11 00:00:00 Telephone VanessaJanine bonilla [facility] 1.2.840.114 350.1.13.10 4.2.7.2.686 [id number] [facility] 2020-12-04 16:20:00 2020-12-04 16:20:00 Outpatient R JANINE RODRIGUEZ [facility] [id number] [facility] 2020-11-28 00:00:00 2020-11-28 00:00:00 Telephone Janine Rodriguez [facility] PRIMARY CARE JIMENA 1.2.840.114 350.1.13.10 4.2.7.2.686 [id number] [facility] 2020-11-27 00:00:00 2020-11-27 00:00:00 Patient Secure Mslogan Wilson Angeline Jony [facility] 1.2.840.114 350.1.13.10 4.2.7.2.686 [id number] [facility] 2020-11-05 00:00:00 2020-11-05 00:00:00 Telephone Janine Rodriguez [facility] PRIMARY CARE JIMENA 1.2.840.114 350.1.13.10 4.2.7.2.686 [id number] [facility] 2020-11-04 13:00:14 2020-11-04 23:59:00 Hospital Encounter Janine Rodriguez [facility] PRIMARY CARE JIMENA 1.2.840.114 350.1.13.10 4.2.7.2.686 [id number] [facility] 2020-11-04 12:42:49 2020-11-04 14:23:19 Office Visit Janine Rodriguez [facility] PRIMARY CARE JIMENA 1.2.840.114 350.1.13.10 4.2.7.2.686 [id number] [facility] 2020-11-04 13:15:00 2020-11-04 13:15:00 Outpatient R JANINE RODRIGUEZ [facility] [id number] [facility] 2020-11-04 13:00:00 2020-11-04 13:00:00 Outpatient R JANINE RODRIGUEZ [facility] [id number] [facility] 2020-11-04 00:00:00 2020-11-04 00:00:00 Telephone [facility] PRIMARY CARE JIMENA 1.2.840.114 350.1.13.10 4.2.7.2.686 [id number] [facility] 2020-10-29 00:00:00 2020-10-29 00:00:00 Telephone [facility] PRIMARY CARE JIMENA 1.2840.114 350.1.13.10 4.2.7.2.686 [id number] [facility] 2020-10-25 07:22:00 2020-10-25 16:08:00 Hospital Encounter Michael [facility] 1.2840.114 350.1.13.10 4.2.7.2.686 [id number] [facility] 2020-10-25 08:56:00 2020-10-25 11:55:00 Surgery Michael [facility] 1..114 350.1.13.10 4.2.7.2.686 [id number] [facility] 2020-10-25 08:58:00 2020-10-25 08:58:00 Outpatient R [facility] [id number] [facility] 2020-10-25 00:00:00 2020-10-25 00:00:00 Orders Only Doctor Unassigned, [place] [facility] ..114 350.1.13.10 4.2.7.2.686 [id number] [facility] 2020-10-24 15:04:09 2020-10-24 15:19:09 Laboratory Only Only, [facility] Test Michael [facility] 1.2.840.114 350.1.13.10 4.2.7.2.686 [id number] [facility] 2020-10-24 14:45:00 2020-10-24 14:45:00 Outpatient R VANESSACECILIO JANINE [facility] [id number] [facility] 2020-10-21 00:00:00 2020-10-21 00:00:00 Letter (Out) Janine Rodriguez [facility] PRIMARY CARE JIMENA 1.2.840.114 350.1.13.10 4.2.7.2.686 [id number] [facility] 2020-10-21 00:00:00 2020-10-21 00:00:00 Patient Secure Msg [facility] PRIMARY CARE ERENANTHONY 1.2.840.114 350.1.13.10 4.2.7.2.686 [id number] [facility] 2020-10-11 00:00:00 2020-10-11 00:00:00 Telephone [facility] SPECIALTY CARE [place] [facility] 1.2.840.114 350.1.13.10 4.2.7.2.686 [id number] [facility] 2020-10-07 10:50:00 2020-10-07 10:50:00 Outpatient R MICHAEL JANINE [facility] [id number] [facility] 2020-10-07 10:50:00 2020-10-07 10:50:00 Outpatient R [facility] [id number] [facility] 2020-10-04 00:00:00 2020-10-04 00:00:00 Telephone [facility] SPECIALTY CARE [place] [facility] 1.2.840.114 350.1.13.10 4.2.7.2.686 [id number] [facility] 2020-09-23 13:50:07 2020-09-23 14:05:07 Laboratory Only Only, Pcp Test Janine Rodriguez [facility] PRIMARY CARE PAVILLION 1.2.840.114 350.1.13.10 4.2.7.2.686 [id number] [facility] 2020-09-23 14:00:00 2020-09-23 14:00:00 Outpatient R JANINE RODRIGUEZ [facility] [id number] [facility] 2020-09-17 07:11:00 2020-09-17 07:30:00 Emergency [facility] 1.2.840.114 350.1.13.10 4.2.7.2.686 [id number] 2020-09-17 07:11:00 2020-09-17 07:30:00 Emergency [facility] 1.2.840.114 350.1.13.10 4.2.7.2.686 [id number] [facility] 2020-08-09 00:00:00 2020-08-09 00:00:00 Telephone Janine Rodriguez [facility] PRIMARY CARE PAVILLION 1.2.840.114 350.1.13.10 4.2.7.2.686 [id number] 2020-08-09 00:00:00 2020-08-09 00:00:00 Telephone Janine Rodriguez [facility] PRIMARY CARE PAVILLION 1.2.840.114 350.1.13.10 4.2.7.2.686 [id number] [facility] 2020-08-05 13:00:11 2020-08-05 23:59:00 Outpatient R JANINE RODRIGUEZ [facility] [id number] [facility] 2020-08-05 13:00:00 2020-08-05 23:59:00 Hospital Encounter Janine Rodriguez [facility] PRIMARY CARE PAVILLION 1.2.840.114 350.1.13.10 4.2.7.2.686 [id number] 2020-08-05 13:00:00 2020-08-05 23:59:00 Hospital Encounter Janine Rodriguez [facility] PRIMARY CARE JIMENA 1.2.840.114 350.1.13.10 4.2.7.2.686 [id number] [facility] 2020-08-05 15:00:00 2020-08-05 15:00:00 Outpatient R NEVA LAUGHLIN [facility] [id number] [facility] 2020-08-05 13:20:00 2020-08-05 13:20:00 Outpatient Nicola JANINE RODRIGUEZ [facility] [id number] [facility] 2020-08-05 12:56:00 2020-08-05 13:06:00 Office Visit Janine Rodriguez [facility] PRIMARY CARE JIMENA 1.2.840.114 350.1.13.10 4.2.7.2.686 [id number] 2020-08-05 12:56:00 2020-08-05 13:06:00 Office Visit Janine Rodriguez [facility] PRIMARY CARE JIMENA 1.2.840.114 350.1.13.10 4.2.7.2.686 [id number] [facility] 2020-08-05 00:00:00 2020-08-05 00:00:00 Outpatient Nicola JANINE RODRIGUEZ [facility] [id number] [facility] 2020-08-04 00:00:00 2020-08-04 00:00:00 Abstract Nick Pereyra [facility] PRIMARY CARE PAVILLION 1.2.840.114 350.1.13.10 4.2.7.2.686 [id number] [facility] 2020-08-01 07:52:00 2020-08-01 13:28:00 Emergency Rodney [facility] 1.2.840.114 350.1.13.10 4.2.7.2.686 [id number] [facility] 2020-07-24 14:39:10 2020-07-24 15:24:10 Ancillary Visit Kate Perea Brian A [facility] 1.2.840.114 350.1.13.10 4.2.7.2.686 [id number] [facility] 2020-07-24 15:00:00 2020-07-24 15:00:00 Outpatient R [facility] [id number] [facility] 2020-07-08 12:53:01 2020-07-08 13:38:01 Ancillary Visit Kate Perea Brian A [facility] 1.2.840.114 350.1.13.10 4.2.7.2.686 [id number] [facility] 2020-07-08 13:00:00 2020-07-08 13:00:00 Outpatient R NEVA LAUGHLIN [facility] [id number] [facility] 2020-06-26 00:00:00 2020-06-26 00:00:00 Case Management Kate Perea [facility] 1.2.840.114 350.1.13.10 4.2.7.2.686 [id number] [facility] 2020-06-19 13:54:01 2020-06-19 14:39:01 Ancillary Visit Kate Perea Brian A [facility] 1.2.840.114 350.1.13.10 4.2.7.2.686 [id number] [facility] 2020-06-12 13:45:00 2020-06-12 13:45:00 Outpatient R [facility] [id number] [facility] 2020-06-11 14:27:57 2020-06-11 15:12:57 Ancillary Visit Amaris Gleason Brian A [facility] [id number] [id number] [facility] 2020-06-06 15:29:18 2020-06-06 16:14:18 Ancillary Visit Amaris Gleason Brian A [facility] [id number] [id number] [facility] 2020-05-29 13:59:22 2020-05-29 14:44:22 Ancillary Visit Amaris Gleason Brian A [facility] [id number] [id number] [facility] 2020-05-29 14:00:00 2020-05-29 14:00:00 Outpatient R [facility] [id number] [facility] 2020-05-13 09:02:44 2020-05-13 23:59:00 Hospital Encounter Janine Rodriguez [facility] [id number] [id number] [facility] 2020-05-13 11:07:13 2020-05-13 11:52:13 Ancillary Visit Kate Perea Brian A [facility] [id number] [id number] [id number] [facility] 2020-05-13 11:30:00 2020-05-13 11:30:00 Outpatient NEVA FLYNN [facility] [id number] [facility] 2020-05-13 10:00:00 2020-05-13 10:00:00 Outpatient R JANINE RODRIGUEZ [facility] [id number] [facility] 2020-05-13 08:59:24 2020-05-13 09:19:24 Office Visit Janine Rodriguez [facility] [id number] [id number] [facility] 2020-05-13 00:00:00 2020-05-13 00:00:00 Outpatient R JANINE RODRIGUZE [facility] [id number] [facility] 2020-05-12 00:00:00 2020-05-12 00:00:00 Abstract Angel Torres [facility]IMENA [id number] [id number] [facility] 2020-05-07 00:00:00 2020-05-07 00:00:00 Orders Only Doctor Unassigned, [place] [facility] 1..840.114 [id number] [id number] [id number] [facility]
--- NOTE | 2023-07-04 22:52 | EDPHYS ---
Physician Documentation [facility] Name: Fadi Riojas Age: 23 yrs Sex: Male : 2000 Arrival Date: 07/04/2023 Time: 22:45 Bed IW1 Private MD: ED Physician Frankie Quan HPI: 07/04 22:55 This 23 yrs old Male presents to ER via Unassigned with complaints of Leg Pain.kb 22:55 Pt reports right hip pain that started yesterday. States he has had this pain kb intermittently for years due to an old injury. States "I just came in to get a day off of work." Also requests some medication for a headache. Historical: - Allergies: 23:02 No Known Allergies; pf1 - PMHx: 23:02 Hypertensive disorder; pf1 23:02 chronic right hip pain; pf1 - PSHx: 23:02 right arm; pf1 - Immunization history:: Adult Immunizations up to date, Client reports receiving the 1st dose of the Covid vaccine, Moderna Last tetanus immunization: < 5 years ago Flu vaccine is not up to date. - Social history:: Smoking status: Patient reports the use of cigarette tobacco products, smokes one-half pack cigarettes per day, Patient uses alcohol, occasionally. Patient/guardian denies using street drugs. ROS: 22:51 Constitutional: Negative for fever, chills, and weight loss, kb 22:51 MS/extremity: Positive for pain, of the right hip, 22:51 All other systems are negative, Exam: 22:51 Constitutional: This is a well developed, well nourished patient who is awake, alert, kb and in no acute distress. Head/Face: Normocephalic, atraumatic. ENT: Moist Mucous membranes Cardiovascular: Regular rate Respiratory: Respirations even and unlabored. No increased work of breathing. Talking in full sentences Skin: Warm, dry with normal turgor. Normal color. MS/ Extremity: Pulses equal, no cyanosis. Neurovascular intact. Full, normal range of motion. Neuro: Awake and alert, GCS 15, oriented to person, place, time, and situation. Moves all extremities. Normal gait. Vital Signs: 22:56 BP 152 / 73; Pulse 93; Resp 18; Temp 97.7; Pulse Ox 97% ; Weight 158.76 kg; Height 6 pf1 ft. 3 in. ; Pain 6/10; 22:56 Body Mass Index 43.75 (158.76 kg, 190.5 cm) pf1 22:56 Pain Scale: Adult pf1 MDM: 22:48 Patient medically screened. kb 22:52 Differential diagnosis: contusion, tendonitis, chronic pain. Data reviewed: vital kb signs, nurses notes. Counseling: I had a detailed discussion with the patient and/or guardian regarding the historical points, exam findings, and any diagnostic results supporting the discharge/admit diagnosis, the need for outpatient follow up, a family practitioner, to return to the emergency department if symptoms worsen or persist or if there are any questions or concerns that arise at home. Administered Medications: 22:56 Drug: Ibuprofen PO 800 mg PO once Route: PO; pf1 Disposition Summary: 07/04/23 22:51 Discharge Ordered Notes: Location: Home kb Condition: Stable kb Diagnosis - Pain in right hip kb Followup: kb - With: Emergency Department - When: As needed - Reason: Worsening of condition Followup: kb - With: Private Physician - When: 2 - 3 days - Reason: Recheck today's complaints, Continuance of care, Re-evaluation by your physician Discharge Instructions: - Discharge Summary Sheet kb - Musculoskeletal Pain kb Forms: - Work release form kb - Medication Reconciliation Form kb - Thank You Letter kb - Antibiotic Education kb - Prescription Opioid Use kb - Patient Portal Instructions kb - Leadership Thank You Letter kb Signatures: Joseline Delaney FNP-C FNP-Ckb Finley, Pamala RN RN pf1
--- NOTE | 2023-07-04 23:08 | ER ---
Nurse's Notes [facility] Name: Fadi Riojas Age: 23 yrs Sex: Male : 2000 Arrival Date: 07/04/2023 Time: 22:45 Bed IW1 Private MD: Diagnosis: Pain in right hip Presentation: 07/04 22:56 Chief complaint: Patient states: chronic right hip pain of 6 since 2019, worse pf1 yesterday while climbing stairs at work. Patient stated needs to take a day off from work due to the pain. Coronavirus screen: Vaccine status: Patient reports receiving the 1st dose of the Covid vaccine. Client denies travel out of the [place] in the last 14 days. At this time, the client does not indicate any symptoms associated with coronavirus-19. Ebola Screen: Patient negative for fever greater than or equal to 101.5 degrees Fahrenheit, and additional compatible Ebola Virus Disease symptoms. Initial Sepsis Screen: Does the patient meet any 2 criteria? HR > 90 bpm. No. Patient's initial sepsis screen is negative. Does the patient have a suspected source of infection? No. Patient's initial sepsis screen is negative. Risk Assessment: Do you want to hurt yourself or someone else? Patient reports no desire to harm self or others. 22:56 Method Of Arrival: Ambulatory pf1 22:56 Acuity: BRYNN 4 pf1 Historical: - Allergies: 23:02 No Known Allergies; pf1 - PMHx: 23:02 Hypertensive disorder; pf1 23:02 chronic right hip pain; pf1 - PSHx: 23:02 right arm; pf1 - Immunization history:: Adult Immunizations up to date, Client reports receiving the 1st dose of the Covid vaccine, Moderna Last tetanus immunization: < 5 years ago Flu vaccine is not up to date. - Social history:: Smoking status: Patient reports the use of cigarette tobacco products, smokes one-half pack cigarettes per day, Patient uses alcohol, occasionally. Patient/guardian denies using street drugs. Vital Signs: 22:56 BP 152 / 73; Pulse 93; Resp 18; Temp 97.7; Pulse Ox 97% ; Weight 158.76 kg; Height 6 pf1 ft. 3 in. ; Pain 6/10; 22:56 Body Mass Index 43.75 (158.76 kg, 190.5 cm) pf1 22:56 Pain Scale: Adult pf1 ED Course: 22:48 Patient arrived in ED. [email or web address] 22:48 [facility] Del[facility]C [facility] kb 22:48 Frankie Quan MD is Attending Physician. kb 23:02 Triage completed. pf1 Administered Medications: 22:56 Drug: Ibuprofen PO 800 mg PO once Route: PO; pf1 Outcome: 22:51 Discharge ordered by . kb 23:06 Discharged to home ambulatory, pf1 23:06 Condition: stable 23:06 Discharge instructions given to patient, Instructed on discharge instructions, follow up and referral plans. Demonstrated understanding of instructions, follow-up care, 23:07 Patient left the ED. pf1 Signatures: Joseline Delaney FNP-C FNP-Ckb Jeffries, Jennifer [email or web address] Nieves Barry, RN RN pf1
[2023-07-05 00:53] VITALS: BP 152/73; TEMP 97.7; O2SAT 97
== END ==
LOC: ER 22:45
DX: M25.551 Pain in right hip (principal); R51.9 Headache, unspecified; F17.210 Nicotine dependence, cigarettes, uncomplicated; I10 Essential (primary) hypertension
CPT/HCPCS: 99283

== ENCOUNTER 2023-10-20 19:12 | Emergency (ER) | payer BC ==
--- NOTE | 2023-10-20 19:25 | EDPHYS ---
Physician Documentation [facility] Name: Fadi Riojas Age: 23 yrs Sex: Male : 2000 Arrival Date: 10/20/2023 Time: 19:12 Bed Waiting Private MD: ED Physician Lashell Coppola HPI: 10/19 19:22 This 23 yrs old Male presents to ER via Unassigned with complaints of Cold sp3 Symptoms. 19:22 23-year-old male with no past medical history presents with sore throat for 3 days sp3 along with some congestion. Patient feels like the throat is his biggest issue and is progressively getting worse. No difficulty swallowing but it is painful to swallow. No chest pain, shortness of breath, cough, sinus pain or pressure, objective fever, abdominal pain, vomiting, diarrhea, rash, known sick contacts, travel history or any other signs or symptoms on ROS at this time.. Historical: - Allergies: 19:25 No Known Allergies; vc1 - Home Meds: 19:25 None [Active]; vc1 - PMHx: 19:25 chronic right hip pain; Hypertensive disorder; vc1 - PSHx: 19:25 right arm; vc1 - Immunization history:: Client reports receiving the 2nd dose of the Covid vaccine, Flu vaccine is not up to date. - Infectious Disease History:: Denies. - Social history:: Smoking status: Patient reports the use of cigarette tobacco products, 5 cigarettes per day. ROS: 19:23 Constitutional: Negative for fever, chills, and weight loss, Eyes: Negative for injury, sp3 pain, redness, and discharge, Exam: 19:23 Constitutional: This is a well developed, well nourished patient who is awake, alert, sp3 and in no acute distress. Head/Face: Normocephalic, atraumatic. Eyes: Pupils equal round and reactive to light, extra-ocular motions intact. Lids and lashes normal. Conjunctiva and sclera are non-icteric and not injected. Cornea within normal limits. Periorbital areas with no swelling, redness, or edema. Neck: Trachea midline, no thyromegaly or masses palpated, and no cervical lymphadenopathy. Supple, full range of motion without nuchal rigidity, or vertebral point tenderness. No Meningismus. Chest/axilla: Normal chest wall appearance and motion. Nontender with no deformity. No lesions are appreciated. Cardiovascular: Regular rate and rhythm with a normal S1 and S2. No gallops, murmurs, or rubs. Normal PMI, no JVD. No pulse deficits. Respiratory: Lungs have equal breath sounds bilaterally, clear to auscultation and percussion. No rales, rhonchi or wheezes noted. No increased work of breathing, no retractions or nasal flaring. Abdomen/GI: Soft, non-tender, with normal bowel sounds. No distension or tympany. No guarding or rebound. No evidence of tenderness throughout. Back: No spinal tenderness. No costovertebral tenderness. Full range of motion. Skin: Warm, dry with normal turgor. Normal color with no rashes, no lesions, and no evidence of cellulitis. 19:23 ENT: Pharyngeal erythema noted. No peritonsillar swelling, uvular shift or other signs of peritonsillar abscess.. Vital Signs: 19:24 Weight 158.76 kg; Height 6 ft. 3 in. ; vc1 19:34 BP 142 / 86; Pulse 100; Resp 16; Temp 98.4; Pulse Ox 96% ; vc1 19:24 Body Mass Index 43.75 (158.76 kg, 190.5 cm) vc1 MDM: 19:24 Data reviewed: vital signs, nurses notes. ED course: Given straightforward nature of sp3 his case, we will go ahead and treat with Augmentin p.o. and Decadron IM 10 mg and follow-up with his PCP. Clinically have ruled out peritonsillar abscess.. 19:25 Patient medically screened. sp3 Administered Medications: 19:34 Drug: Dexamethasone IM 10 mg IM once Route: IM; Site: right deltoid; vc1 19:34 Follow up: Response: Medication administered at discharge. vc1 Disposition Summary: 10/20/23 19:25 Discharge Ordered Notes: Location: Home sp3 Condition: Stable sp3 Diagnosis - Acute pharyngitis, unspecified sp3 Followup: sp3 - With: Private Physician - When: Upon discharge from the Emergency Department - Reason: Continuance of care Discharge Instructions: - Discharge Summary Sheet sp3 - Pharyngitis sp3 Forms: - Medication Reconciliation Form sp3 - Thank You Letter sp3 - Antibiotic Education sp3 - Prescription Opioid Use sp3 - Patient Portal Instructions sp3 - Leadership Thank You Letter sp3 - Work release form vc1 Prescriptions: - Augmentin 875-125 mg Oral Tablet - take 1 tablet ORAL route every 12 hours for 10 days; 20 tablet; Refills: 0, sp3 Product Selection Permitted Signatures: Lashell Coppola MD MD sp3 Azul Williamson RN RN vc1
--- NOTE | 2023-10-20 19:25 | ER ---
Nurse's Notes [facility] Name: Fadi Riojas Age: 23 yrs Sex: Male : 2000 Arrival Date: 10/20/2023 Time: 19:12 Bed Waiting Private MD: Diagnosis: Acute pharyngitis, unspecified Presentation: 10/19 19:24 Chief complaint: Patient states: cough, sore throat, mucus. Coronavirus screen: At this vc1 time, the client does not indicate any symptoms associated with coronavirus-19. Ebola Screen: Patient negative for fever greater than or equal to 101.5 degrees Fahrenheit, and additional compatible Ebola Virus Disease symptoms Patient denies exposure to infectious person. Patient denies travel to an Ebola-affected area in the 21 days before illness onset. No symptoms or risks identified at this time. Initial Sepsis Screen: Does the patient meet any 2 criteria? No. Patient's initial sepsis screen is negative. Does the patient have a suspected source of infection? No. Patient's initial sepsis screen is negative. Risk Assessment: Do you want to hurt yourself or someone else? Patient reports no desire to harm self or others. Onset of symptoms is unknown. Care prior to arrival: None. Activity prior to arrival: None. Mechanism of Injury: No Mechanism of Injury. 19:24 Method Of Arrival: Ambulatory vc1 19:24 Acuity: BRYNN 4 vc1 Triage Assessment: 19:26 General: Appears in no apparent distress. uncomfortable, Behavior is calm, cooperative, vc1 appropriate for age. Pain: Complains of pain in throat Pain does not radiate. Pain currently is 3 out of 10 on a pain scale. Quality of pain is described as sharp, Pain began 2-3 days ago. Aggravated by eating, drinking. EENT: Reports pain when swallowing. Neuro: Level of Consciousness is awake, alert, obeys commands, Oriented to person, place, time, situation, Appropriate for age. Cardiovascular: Heart tones S1 S2 Patient's skin is warm and dry. Respiratory: Airway is patent Respiratory effort is even, unlabored, Respiratory pattern is regular, symmetrical. Respiratory: Reports cough that is Breath sounds are clear bilaterally. GI: No deficits noted. No signs and/or symptoms were reported involving the gastrointestinal system. : No deficits noted. No signs and/or symptoms were reported regarding the genitourinary system. Derm: No deficits noted. No signs and/or symptoms reported regarding the dermatologic system. Musculoskeletal: No deficits noted. No signs and/or symptoms reported regarding the musculoskeletal system. Historical: - Allergies: 19:25 No Known Allergies; vc1 - Home Meds: 19:25 None [Active]; vc1 - PMHx: 19:25 chronic right hip pain; Hypertensive disorder; vc1 - PSHx: 19:25 right arm; vc1 - Immunization history:: Client reports receiving the 2nd dose of the Covid vaccine, Flu vaccine is not up to date. - Infectious Disease History:: Denies. - Social history:: Smoking status: Patient reports the use of cigarette tobacco products, 5 cigarettes per day. Screenin:28 [facility] ED Fall Risk Assessment (Adult) History of falling in the last 3 months, vc1 including since admission No falls in past 3 months (0 pts) Confusion or Disorientation No (0 pts) Intoxicated or Sedated No (0 pts) Impaired Gait No (0 pts) Mobility Assist Device Used No (0 pt) Altered Elimination No (0 pt) Score/Fall Risk Level 0 - 2 = Low Risk Oriented to surroundings, Maintained a safe environment, Educated pt \T\ family on fall prevention, incl call for assistance when getting out of bed. Abuse screen: Denies threats or abuse. Nutritional screening: No deficits noted. Tuberculosis screening: No symptoms or risk factors identified. Vital Signs: 19:24 Weight 158.76 kg; Height 6 ft. 3 in. ; vc1 19:34 BP 142 / 86; Pulse 100; Resp 16; Temp 98.4; Pulse Ox 96% ; vc1 19:24 Body Mass Index 43.75 (158.76 kg, 190.5 cm) vc1 ED Course: 19:15 Patient arrived in ED. ra3 19:16 Lashell Coppola MD is Attending Physician. sp3 19:25 Triage completed. vc1 19:26 Arm band placed on right wrist. vc1 19:28 Patient has correct armband on for positive identification. Bed in low position. Call vc1 light in reach. Provided Education on: steroid. Seen in triage. 19:37 No provider procedures requiring assistance completed. Patient did not have IV access vc1 during this emergency room visit. 19:41 Azul Williamson, RN is Primary Nurse. vc1 Administered Medications: 19:34 Drug: Dexamethasone IM 10 mg IM once Route: IM; Site: right deltoid; vc1 19:34 Follow up: Response: Medication administered at discharge. vc1 Medication: 19:28 VIS not applicable for this client. vc1 Outcome: 19:25 Discharge ordered by . sp3 19:37 Discharged to home ambulatory, vc1 19:37 Condition: good 19:37 Discharge instructions given to patient, Instructed on discharge instructions, follow up and referral plans. medication usage, Demonstrated understanding of instructions, follow-up care, medications, 19:41 Patient left the ED. vc1 Signatures: Lashell Coppola MD MD sp3 Azul Williamson RN RN vc1 Yumiko Valladares ra3
[2023-10-20] MEDS ORDERED: dexAMETHasone 10 MG/ML VIAL ONE (19:31)
[2023-10-21 03:58] VITALS: BP 142/86; TEMP 98.4; O2SAT 96
== END 2023-10-20 19:41 | disposition home or self-care (01) ==
LOC: ER 19:12
DX: J02.9 Acute pharyngitis, unspecified (principal); F17.210 Nicotine dependence, cigarettes, uncomplicated
CPT/HCPCS: J1100